=== PATIENT | female | born 1980 | race Two or more races ===

== ENCOUNTER 2018-03-17 07:59 | Inpatient (IN) | payer SELFPAY ==
[2018-03-17] VITALS (9 sets, daily range): BP systolic 122–160; BP diastolic 60–79
[~2018-03-17] VITALS: Ht 160 cm; Wt 104.3 kg
[~2018-03-17 07:59] MED LIST: ATOR20TA PO; GEMF600T PO; INSU100I17 SQ; INSU100I18 SQ; Oxycodone Hcl/Acetaminophen PO
[2018-03-17] MEDS ORDERED: MORPHINE SULFATE 10 MG/ML VIAL. IV ONE ×2 (08:15→09:15)
[2018-03-17] MEDS ORDERED: IV NORMAL SALINE 1000ML BAG 1,000 ML IV ONE ×2 (08:15→11:45)
[2018-03-17] MEDS ORDERED: ONDANSETRON PF 4 MG/2 ML VIAL. IV ONE (08:15)
--- NOTE | 2018-03-17 08:22 | PHYS DOC ---
Past Medical History Past Medical History: Diabetes-Type II Past Surgical History: Cholecystectomy Alcohol Use: None Drug Use: None Adult General Chief Complaint Chief Complaint: ABDOMINAL PAIN HPI HPI Patient is a 38 year old female with history of diabetes type 2, cholecystectomy, who presents today with a constant sharp 10 out of 10 bilateral upper abdominal pain with nausea and vomiting since yesterday. Patient states this pain feels similar to the last time she had pancreatitis. Patient denies any alcohol abuse. Denies any hematemesis. Patient states she was seen at [facility] early this morning and was discharged with hydrocodone and cephalexin for UTI. PCP Dr. Del Toro at [facility]. Review of Systems Review of Systems Constitutional: Denies fever or chills [] Eyes: Denies change in visual acuity, redness, or eye pain [] HENT: Denies nasal congestion or sore throat [] Respiratory: Denies cough or shortness of breath [] Cardiovascular: No additional information not addressed in HPI [] GI: Reports bilateral upper abdominal pain with nausea and vomiting, denies bloody stools or diarrhea [] : Denies dysuria or hematuria [] Musculoskeletal: Denies back pain or joint pain [] Integument: Denies rash or skin lesions [] Neurologic: Denies headache, focal weakness or sensory changes [] All other systems were reviewed and found to be within normal limits, except as documented in this note. Current Medications Current Medications Current Medications Medications (Trade) Dose Ordered Sig/Hilario Start Time Stop Time Status Last Admin Dose Admin Info (CONTRAST GIVEN -- Rx MONITORING) 1 each PRN DAILY PRN 03/17/18 09:00 03/19/18 08:59 Insulin Human Regular 150 ml @ 0 mls/hr CONT PRN PRN 03/17/18 11:15 03/17/18 13:01 DC 03/17/18 15:23 5.7 MLS/HR Insulin Human Regular 150 unit/ Sodium Chloride 151.5 ml @ 0 mls/hr CONT PRN PRN 03/17/18 11:00 Cancel Iohexol (Omnipaque 300 Mg/ml) 75 ml 1X ONCE 03/17/18 09:00 03/17/18 09:01 DC 03/17/18 10:19 75 ML Morphine Sulfate (Morphine Sulfate) 5 mg 1X ONCE 03/17/18 09:15 03/17/18 09:16 DC 03/17/18 09:25 5 MG Ondansetron HCl (Zofran) 4 mg 1X ONCE 03/17/18 08:15 03/17/18 08:16 DC 03/17/18 08:40 4 MG Prochlorperazine Edisylate (Compazine) 10 mg 1X ONCE 03/17/18 09:15 03/17/18 09:16 DC 03/17/18 09:25 10 MG Sodium Chloride 1,000 ml @ 1,000 mls/hr Q1H 03/17/18 10:58 03/17/18 11:57 DC Allergies Allergies Allergies Coded Allergies Type Severity Reaction Last Updated Verified No Known Drug Allergies 01/20/14 No Physical Exam Physical Exam Constitutional: Well developed, well nourished, no acute distress, non-toxic appearance. [] HENT: Normocephalic, atraumatic, bilateral external ears normal, oropharynx moist, no oral exudates, nose normal. [] Eyes: PERRLA, EOMI, conjunctiva normal, no discharge. [] Neck: Normal range of motion, no tenderness, supple, no stridor. [] Cardiovascular:Heart rate regular rhythm, no murmur [] Lungs & Thorax: Bilateral breath sounds clear to auscultation [] Abdomen: Bowel sounds normal, soft, diffuse tenderness bilateral upper abdominal areas, pain is worse mid epigastric region, no right lower quadrant tenderness, no masses, no pulsatile masses. Patient is actively vomiting in the ED. Skin: Warm, dry, no erythema, no rash. [] Back: No tenderness, no CVA tenderness. [] Extremities: No tenderness, no cyanosis, no clubbing, ROM intact, no edema. [] Neurologic: Alert and oriented X 3, normal motor function, normal sensory function, no focal deficits noted. [] Psychologic: Affect normal, judgement normal, mood normal. [] Current Patient Data Vital Signs Vital Signs Date Time Temp Pulse Resp B/P (MAP) Pulse Ox O2 Delivery O2 Flow Rate FiO2 03/17/18 11:30 106 188/85 (119) 96 Room Air 03/17/18 09:25 20 03/17/18 08:00 97.4 97.4 Lab Values Laboratory Tests Test 03/17/18 08:00 03/17/18 08:19 10/30/18 09:30 Urine Collection Type Unknown Urine Color Yellow Urine Clarity Clear Urine pH 6.0 Urine Specific [place] 1.020 Urine Protein >=300 mg/dL (NEG-TRACE) Urine Glucose (UA) >=1000 mg/dL (NEG) Urine Ketones (Stick) 40 mg/dL (NEG) Urine Blood Trace (NEG) Urine Nitrite Negative (NEG) Urine Bilirubin Negative (NEG) Urine Urobilinogen Dipstick 1.0 mg/dL (0.2 mg/dL) Urine Leukocyte Esterase Negative (NEG) Urine RBC 3-5 /HPF (0-2) Urine WBC 5-10 /HPF (0-4) Urine Squamous Epithelial Cells Mod /LPF Urine Bacteria Moderate /HPF (0-FEW) Urine Mucus Slight /LPF Urine Yeast Present /HPF Urine Opiates Screen Pos (NEG) Urine Methadone Screen Neg (NEG) Urine Barbiturates Neg (NEG) Urine Phencyclidine Screen Neg (NEG) Urine Amphetamine/Methamphetamine Neg (NEG) Urine Benzodiazepines Screen Neg (NEG) Urine Cocaine Screen Neg (NEG) Urine Cannabinoids Screen Neg (NEG) Urine Ethyl Alcohol Neg (NEG) Ethyl Alcohol Level < 10 mg/dL (0-10) White Blood Count 6.8 x10^3/uL (4.0-11.0) Red Blood Count 4.18 x10^6/uL (3.50-5.40) Hemoglobin 12.3 g/dL (12.0-15.5) Hematocrit 35.3 % (36.0-47.0) L Mean Corpuscular Volume 85 fL (79-100) Mean Corpuscular Hemoglobin 29 pg (25-35) Mean Corpuscular Hemoglobin Concent 35 g/dL (31-37) Red Cell Distribution Width 13.5 % (11.5-14.5) Platelet Count 199 x10^3/uL (140-400) Segmented Neutrophils % 74 % (35-66) H Band Neutrophils % 3 % (0-9) Lymphocytes % 18 % (24-48) L Monocytes % 3 % (0-10) Eosinophils % 1 % (0-5) Myelocytes % 1 % (0-0) H Platelet Estimate Adequate (ADEQUATE) Large Platelets Few Sodium Level 134 mmol/L (136-145) L Potassium Level 3.5 mmol/L (3.5-5.1) Chloride Level 96 mmol/L (98-107) L Carbon Dioxide Level 18 mmol/L (21-32) L Anion Gap 20 (6-14) H Blood Urea Nitrogen 4 mg/dL (7-20) L Creatinine 0.5 mg/dL (0.6-1.0) L Estimated GFR (Cockcroft-Gault) 139.6 BUN/Creatinine Ratio 8 (6-20) Glucose Level 369 mg/dL (70-99) H Calcium Level 8.0 mg/dL (8.5-10.1) L Phosphorus Level 2.5 mg/dL (2.6-4.7) L Magnesium Level 1.8 mg/dL (1.8-2.4) Total Bilirubin 1.4 mg/dL (0.2-1.0) H Aspartate Amino Transferase (AST) 233 U/L (15-37) H Alanine Aminotransferase (ALT) 160 U/L (14-59) H Alkaline Phosphatase 81 U/L (46-116) Total Protein 7.2 g/dL (6.4-8.2) Albumin 2.8 g/dL (3.4-5.0) L Albumin/Globulin Ratio 0.6 (1.0-1.7) L Triglycerides Level 2254 mg/dL (0-150) H Cholesterol Level 325 mg/dL (0-200) H LDL Cholesterol, Calculated mg/dL (0-100) VLDL Cholesterol, Calculated 451 mg/dL (0-40) H Non-HDL Cholesterol Calculated mg/dL (0-129) HDL Cholesterol mg/dL (40-60) Cholesterol/HDL Ratio Lipase 92467 U/L (73-393) H Laboratory Tests 03/17/18 09:30 Laboratory Tests 03/17/18 09:30 EKG EKG [] Radiology/Procedures Radiology/Procedures []PROCEDURE: CT ABD PELV W/ IV CONTRST ONLY PQRS Compliance statement: One or more of the following individualized dose reduction techniques were utilized for this examination: 1. Automated exposure control. 2. Adjustment of the mA and/or kV according to patient size. 3. Use of iterative reconstruction technique. Indication:abd pain hx of pancreatitis TECHNIQUE: CT abdomen and pelvis with IV contrast with multiplanar reformats. COMPARISON: 01/25/2014 FINDINGS: Heart is normal in size. No pericardial or pleural effusion. Clear lung bases. Diffuse hepatic steatosis without focal hepatic lesion. Spleen is not enlarged and show no focal lesion. Status post cholecystectomy. Diffuse peripancreatic inflammatory changes. No pancreatic calcifications. No peripancreatic fluid collections. Adrenal glands show no focal mass. No nephrolithiasis or hydronephrosis. No suspicious renal lesion. No retroperitoneal or pelvic adenopathy. No free pelvic fluid or ascites. No bowel obstruction. Normal appendix. Anteverted uterus. Urinary bladder within normal limits. Reactive changes are seen in the second and third portion of duodenum. No suspicious bony lesion. IMPRESSION: 1. Findings of acute interstitial edematous pancreatitis. 2. Hepatic steatosis. Electronically signed by: Mic Bañuelos DO (03/17/2018 11:27 AM) [facility] DICTATED and SIGNED BY: MIC BAÑUELOS DO DATE: 03/17/18 112 Course & Med Decision Making Course & Med Decision Making Pertinent Labs and Imaging studies reviewed. (See chart for details) This is a 38-year-old female patient presenting to the ED today with bilateral upper abdominal pain with nausea and vomiting, patient has history of pancreatitis and believes she is having an attack. CBC with normal WBC, CMP with glucose of 369, anion gap of 20, lipase 21,126, IV fluids started as well as insulin drip. CT of the abdomen and pelvic was noted for edematous pancreatitis. 11:36 spoke with Carmen LERNER for GI who will f/u with patient. Dragon Disclaimer Dragon Disclaimer This electronic medical record was generated, in whole or in part, using a voice recognition dictation system. Departure Departure Impression: Primary Impression: Acute pancreatitis Additional Impression: DKA (diabetic ketoacidoses) Disposition: 09 ADMITTED INPATIENT Condition: STABLE Referrals: NO PCP (PCP) Problem Qualifiers Primary Impression: Acute pancreatitis Pancreatitis type: unspecified pancreatitis type Acute pancreatitis complication: unspecified Qualified Codes: K85.90 - Acute pancreatitis without necrosis or infection, unspecified Additional Impression: DKA (diabetic ketoacidoses) Diabetes mellitus type: type 2 Diabetes mellitus complication detail: without coma Qualified Codes: E11.10 - Type 2 diabetes mellitus with ketoacidosis without coma ROSANA BEDOLLA APRN Mar 17, 2018 08:22
[2018-03-17 08:49] LABS: BILIRUBIN,URINE NEGATIVE (NEG); CLARITY,URINE CLEAR; COLOR,URINE YELLOW; NITRITE,URINE NEGATIVE (NEG); PROTEIN,URINE >=300 mg/dL (NEG-TRACE)
[2018-03-17 08:59] LABS: BARBITURATES NEG (NEG); BENZODIAZEPINES NEG (NEG); CANNABINOIDS NEG (NEG); COCAINE NEG (NEG); METHADONE NEG (NEG); OPIATES POS (NEG); PHENCYCLIDINE NEG (NEG)
[2018-03-17] MEDS ORDERED: CONTRAST GIVEN. MC PRN (09:00)
[2018-03-17] MEDS ORDERED: IOHEXOL 300 MG/ML 100ML VIAL. IV ONE (09:00)
[2018-03-17 09:01] LABS: AMPHETAMINE/METHAMPHETAMINE NEG (NEG)
[2018-03-17] MEDS ORDERED: PROCHLORPERAZINE 10 MG/2 ML VIAL. IV ONE (09:15)
[2018-03-17 09:16] LABS: BACTERIA,URINE MODERATE /HPF (0-FEW)
[2018-03-17 09:17] LABS: SQUAMOUS EPITHELIAL CELL,UR MOD /LPF; YEAST,URINE PRESENT /HPF
[2018-03-17 10:06] LABS: CREATININE 0.5 mg/dL (0.6-1.0); GFR 139.6; POTASSIUM 3.5 mmol/L (3.5-5.1)
[2018-03-17 10:13] LABS: ALBUMIN 2.8 g/dL (3.4-5.0); ALBUMIN/GLOBULIN RATIO 0.6 (1.0-1.7); TOTAL BILIRUBIN 1.4 mg/dL (0.2-1.0)
[2018-03-17 10:18] LABS: TOTAL PROTEIN 7.2 g/dL (6.4-8.2)
[2018-03-17 10:29] LABS: RED BLOOD COUNT 4.18 x10^6/uL (3.50-5.40); WHITE BLOOD COUNT 6.8 x10^3/uL (4.0-11.0)
[2018-03-17 10:30] LABS: HEMATOCRIT 35.3 % (36.0-47.0); HEMOGLOBIN 12.3 g/dL (12.0-15.5); MEAN CORPUSCULAR VOLUME 85 fL (79-100)
[2018-03-17 10:31] LABS: MEAN CORPUSCULAR HEMOGLOBIN 29 pg (25-35); MEAN CORPUSCULAR HGB CONC 35 g/dL (31-37); PLATELET COUNT 199 x10^3/uL (140-400); RED CELL DISTRIBUTION WIDTH 13.5 % (11.5-14.5)
[2018-03-17] MEDS ORDERED: IV NORMAL SALINE 1000ML BAG 1,000 ML IV SCH (10:58)
[2018-03-17] MEDS ORDERED: INSULIN REGULAR VIAL 150 UNIT in 0.9 % SODIUM CHLORIDE 150ML 150 ML IV PRN (11:00)
[2018-03-17 11:21] LABS: MAGNESIUM 1.8 mg/dL (1.8-2.4); PHOSPHORUS 2.5 mg/dL (2.6-4.7)
--- NOTE | 2018-03-17 11:30 | RAD ---
PQRS Compliance statement: One or more of the following individualized dose reduction techniques were utilized for this examination: 1. Automated exposure control. 2. Adjustment of the mA and/or kV according to patient size. 3. Use of iterative reconstruction technique. Indication:abd pain hx of pancreatitis TECHNIQUE: CT abdomen and pelvis with IV contrast with multiplanar reformats. COMPARISON: 01/25/2014 FINDINGS: Heart is normal in size. No pericardial or pleural effusion. Clear lung bases. Diffuse hepatic steatosis without focal hepatic lesion. Spleen is not enlarged and show no focal lesion. Status post cholecystectomy. Diffuse peripancreatic inflammatory changes. No pancreatic calcifications. No peripancreatic fluid collections. Adrenal glands show no focal mass. No nephrolithiasis or hydronephrosis. No suspicious renal lesion. No retroperitoneal or pelvic adenopathy. No free pelvic fluid or ascites. No bowel obstruction. Normal appendix. Anteverted uterus. Urinary bladder within normal limits. Reactive changes are seen in the second and third portion of duodenum. No suspicious bony lesion. IMPRESSION: 1. Findings of acute interstitial edematous pancreatitis. 2. Hepatic steatosis. Electronically signed by: Mic Bañuelos DO (03/17/2018 11:27 AM) [facility]
[2018-03-17] MEDS ORDERED: ONDANSETRON PF 4 MG/2 ML VIAL. IV PRN (11:45)
[2018-03-17] MEDS: MORPHINE SULFATE 4 MG/ML VIAL. IV PRN ×5 (12:01→23:00)
[2018-03-17] MEDS: INSULIN,REGULAR 150 UNIT DRIP 150 ML IV PRN ×2 (13:01→15:23)
--- NOTE | 2018-03-17 13:26 | PDOC2 ---
GI CONSULT Reason For Consult: Pancreatitis HPI: HPI: 38 y/o female seen in ER. Onset of upper abdominal pain w/ radiation around and through to back yesterday, associated w/ n/v. Feels similar to past episodes of pancreatitis. Was seen @ [facility] ER this morning, had elevated lipase there w/ normal LFTs. Discharged to home w/ cephalexin for UTI along w/ hydrocodone and ondansetron. Seems like a GI cocktail was also attempted - she says this made pain worse but morphine helped. After she left, the pain got worse so she came to [facility]. Here, lipase 21,126, bili 1.4, AST 233, ALT 160, Alk Phos 81. Glucose 369, CO2 18. UA w/ ketones (40). Third or fourth episode of pancreatitis - the last episode was about 5 years ago and required 9 day hospitalization First episode ?associated w/ gallstones and had cholecystectomy, but also has h/o hypertriglyceridemia. Stopped Tricor while , then resumed ~3 months ago. Had labs through [facility] and was told she needed a different medication but she never followed-up. Denies reflux/heartburn, dysphagia, hematemesis, constipation, hematochezia, melena, or weight loss. Not unusual for her to have diarrhea - maybe increased yesterday (estimates 7-8 episode of soft brown stool). No previous EGD or colonoscopy. H/o IDDM - says glucose usually in 180s at home. Takes Advil weekly for OMER. PMH: PMH: IDDM, hypertriglyceridemia, headaches, hepatic steatosis, pancreatitis, C- section, tubal ligation, cholecystectomy FH: Family History: No pertinent hx (denies GI cancer of h/o pancreatitis) Social History: Smoke: No ALCOHOL: none Drugs: None ROS: GEN: Denies fevers, chills, sweats HEENT: Denies blurred vision, sore throat CV: Denies chest pain RESP: Denies shortness of air, cough GI: Per HPI : Denies hematuria, dysuria ENDO: Denies weight changes NEURO: Denies confusion, dizziness MSK: Denies weakness, joint pain/swelling SKIN: Denies jaundice, pruritus Vitals: Vitals: Vital Signs Date Time Temp Pulse Resp B/P (MAP) Pulse Ox O2 Delivery O2 Flow Rate FiO2 03/17/18 12:30 110 165/77 (106) 96 Room Air 03/17/18 12:01 18 03/17/18 08:00 97.4 97.4 Labs: Labs: Laboratory Tests Test 03/17/18 08:00 03/17/18 08:19 03/17/18 09:30 03/17/18 12:49 Urine Collection Type Unknown Urine Color Yellow Urine Clarity Clear Urine pH 6.0 Urine Specific [place] 1.020 Urine Protein >=300 mg/dL (NEG-TRACE) Urine Glucose (UA) >=1000 mg/dL (NEG) Urine Ketones (Stick) 40 mg/dL (NEG) Urine Blood Trace (NEG) Urine Nitrite Negative (NEG) Urine Bilirubin Negative (NEG) Urine Urobilinogen Dipstick 1.0 mg/dL (0.2 mg/dL) Urine Leukocyte Esterase Negative (NEG) Urine RBC 3-5 /HPF (0-2) Urine WBC 5-10 /HPF (0-4) Urine Squamous Epithelial Cells Mod /LPF Urine Bacteria Moderate /HPF (0-FEW) Urine Mucus Slight /LPF Urine Yeast Present /HPF Urine Opiates Screen Pos (NEG) Urine Methadone Screen Neg (NEG) Urine Barbiturates Neg (NEG) Urine Phencyclidine Screen Neg (NEG) Urine Amphetamine/Methamphetamine Neg (NEG) Urine Benzodiazepines Screen Neg (NEG) Urine Cocaine Screen Neg (NEG) Urine Cannabinoids Screen Neg (NEG) Urine Ethyl Alcohol Neg (NEG) Ethyl Alcohol Level < 10 mg/dL (0-10) White Blood Count 6.8 x10^3/uL (4.0-11.0) Red Blood Count 4.18 x10^6/uL (3.50-5.40) Hemoglobin 12.3 g/dL (12.0-15.5) Hematocrit 35.3 % (36.0-47.0) Mean Corpuscular Volume 85 fL (79-100) Mean Corpuscular Hemoglobin 29 pg (25-35) Mean Corpuscular Hemoglobin Concent 35 g/dL (31-37) Red Cell Distribution Width 13.5 % (11.5-14.5) Platelet Count 199 x10^3/uL (140-400) Sodium Level 134 mmol/L (136-145) Potassium Level 3.5 mmol/L (3.5-5.1) Chloride Level 96 mmol/L (98-107) Carbon Dioxide Level 18 mmol/L (21-32) Anion Gap 20 (6-14) Blood Urea Nitrogen 4 mg/dL (7-20) Creatinine 0.5 mg/dL (0.6-1.0) Estimated GFR (Cockcroft-Gault) 139.6 BUN/Creatinine Ratio 8 (6-20) Glucose Level 369 mg/dL (70-99) Calcium Level 8.0 mg/dL (8.5-10.1) Phosphorus Level 2.5 mg/dL (2.6-4.7) Magnesium Level 1.8 mg/dL (1.8-2.4) Total Bilirubin 1.4 mg/dL (0.2-1.0) Aspartate Amino Transf (AST/SGOT) 233 U/L (15-37) Alanine Aminotransferase (ALT/SGPT) 160 U/L (14-59) Alkaline Phosphatase 81 U/L (46-116) Total Protein 7.2 g/dL (6.4-8.2) Albumin 2.8 g/dL (3.4-5.0) Albumin/Globulin Ratio 0.6 (1.0-1.7) Lipase 02996 U/L (73-393) Glucose (Fingerstick) 346 mg/dL (70-99) Allergies: Coded Allergies: No Known Drug Allergies (Unverified , 01/20/14) Medications: Current Medications Medications (Trade) Dose Ordered Sig/Hilario Route PRN Reason Start Time Stop Time Status Last Admin Dose Admin Sodium Chloride 1,000 ml @ 1,000 mls/hr 1X ONCE IV 03/17/18 08:15 03/17/18 09:14 DC 03/17/18 08:41 Ondansetron HCl (Zofran) 4 mg 1X ONCE IV 03/17/18 08:15 03/17/18 08:16 DC 03/17/18 08:40 Morphine Sulfate (Morphine Sulfate) 5 mg 1X ONCE IV 03/17/18 08:15 03/17/18 08:16 DC 03/17/18 08:40 Iohexol (Omnipaque 300 Mg/ml) 75 ml 1X ONCE IV 03/17/18 09:00 03/17/18 09:01 DC 03/17/18 10:19 Morphine Sulfate (Morphine Sulfate) 5 mg 1X ONCE IV 03/17/18 09:15 03/17/18 09:16 DC 03/17/18 09:25 Prochlorperazine Edisylate (Compazine) 10 mg 1X ONCE IV 03/17/18 09:15 03/17/18 09:16 DC 03/17/18 09:25 Insulin Human Regular 150 ml @ 0 mls/hr CONT PRN PRN IV PER PROTOCOL 03/17/18 11:15 03/17/18 13:01 DC 03/17/18 13:01 Morphine Sulfate (Morphine Sulfate) 4 mg PRN Q2HR PRN IV PAIN 03/17/18 11:45 03/18/18 11:44 03/17/18 12:01 Imaging: Imaging: CT A/P IMPRESSION: 1. Findings of acute interstitial edematous pancreatitis. 2. Hepatic steatosis. PE: GEN: NAD HEENT: Atraumatic, PERRL LUNGS: CTAB anteriorly HEART: tachycardic ABD: obese, quiet, soft, epigastric/BUQ tenderness EXTREMITY: No edema SKIN: No rashes, no jaundice NEURO/PSYCH: A & O 3 A/P: A/P: Recurrent pancreatitis -onset of upper abd pain w/ radiation to back and n/v yesterday -s/p cholecystectomy -h/o hypertriglyceridemia - on and off meds -denies alcohol use Elevated LFTs, hepatic steatosis IDDM, ?UTI, HTN - defer to primary CRC screen - average risk -- NPO, supportive care for pancreatitis. Check lipid panel - trigs >3000 here in 2013, defer treatment to primary. Elevated LFTs possibly related to hepatic steatosis, check MRCP for completeness. MONICA HECK Mar 17, 2018 13:26
[2018-03-17 13:53] LABS: CHOLESTEROL 325 mg/dL (0-200)
[2018-03-17 14:30] LABS: TRIGLYCERIDES 2254 mg/dL (0-150); VLDLC 451 mg/dL (0-40)
[2018-03-17] MEDS ORDERED: LABETALOL 20 MG/4 ML DISP.SYRIN. IVP PRN (14:30)
[2018-03-17] MEDS ORDERED: ACETAMINOPHEN 325 MG TABLET. PO PRN (14:30)
[2018-03-17] MEDS ORDERED: DOCUSATE SODIUM 100 MG CAPSULE. PO PRN (14:30)
--- NOTE | 2018-03-17 14:39 | PDOC1 ---
History and Physical Date of Admission Date of Admission 03/17/18 Identification/Chief Complaint Chief Complaint abd pain, N/V Source Source: Chart review, Patient History of Present Illness History of Present Illness Patient is a 38 year old female with history of diabetes type 2, cholecystectomy, pancreatitis, comes to ER for n/v abd pain from yesterday. Pt is taking NPH 35u bid , aspart 35u tid at home. She said last pancreatitis was 5ys ago and said was told 2/2 HLD. pt started to have upper abd pain yesterday, around the abd, radiating to back, then has multiple times of N/V, non bloody or bilious. The abd pain was severe, dull, 8/10, constant. denies ETOH. has loose BM at home yellow. Patient states she was seen at [facility] early this morning and was discharged with hydrocodone and cephalexin for UTI. pt feels frequency , dysuria in ER, not home. PCP Dr. Del Toro at [facility]. LIpase in ER >20k. CT showed acute pancreatitis. denies HTN, bp >200 in ER. GAP 20. glucose >300. high LFT. Past Medical History Cardiovascular: Hyperlipidemia Endocrine: Diabetes Past Surgical History Past Surgical History: Cholecystectomy, Tubal Ligation Family History Family History: Hypertension Social History Smoke: No ALCOHOL: none Drugs: None Current Problem List Problem List Problems Medical Problems: (1) Acute pancreatitis Status: Acute (2) DKA (diabetic ketoacidoses) Status: Acute Current Medications Current Medications Current Medications Medications (Trade) Dose Ordered Sig/Hilario Start Time Stop Time Status Last Admin Dose Admin Famotidine (Pepcid Vial) 20 mg QHS 03/17/18 21:00 Info (CONTRAST GIVEN -- Rx MONITORING) 1 each PRN DAILY PRN 03/17/18 09:00 03/19/18 08:59 Insulin Human Regular 150 ml @ 0 mls/hr CONT PRN PRN 03/17/18 11:15 03/17/18 13:01 DC 03/17/18 13:01 5.7 MLS/HR Insulin Human Regular 150 unit/ Sodium Chloride 151.5 ml @ 0 mls/hr CONT PRN PRN 03/17/18 18:00 Iohexol (Omnipaque 300 Mg/ml) 75 ml 1X ONCE 03/17/18 09:00 03/17/18 09:01 DC 03/17/18 10:19 75 ML Morphine Sulfate (Morphine Sulfate) 4 mg PRN Q2HR PRN 03/17/18 11:45 03/18/18 11:44 03/17/18 12:01 4 MG Ondansetron HCl (Zofran) 4 mg PRN Q8HRS PRN 03/17/18 11:45 03/18/18 11:44 Prochlorperazine Edisylate (Compazine) 10 mg 1X ONCE 03/17/18 09:15 03/17/18 09:16 DC 03/17/18 09:25 10 MG Sodium Chloride 1,000 ml @ 125 mls/hr 1X ONCE 03/17/18 11:45 03/17/18 19:44 Allergies Allergies Allergies Coded Allergies Type Severity Reaction Last Updated Verified No Known Drug Allergies 01/20/14 No ROS Review of System CONSTITUTIONAL: No fever or chills EYES: No recent changes SKIN: No rash or itching CARDIOVASCULAR: No chest pain, syncope, palpitations, or edema RESPIRATORY: No SOB or cough GASTROINTESTINAL: No nausea, vomiting or abdominal pain NEUROLOGICAL: No headaches or weakness ENDOCRINE: No cold or heat intolerance GENITOURINARY: No urgency or frequency of urination MUSCULOSKELETAL: No back pain or joint pain LYMPHATICS: No enlarged lymph nodes PSYCHIATRIC: No anxiety or depression Physical Exam Physical Exam GEN.: No apparent distress. Alert and oriented. HEENT: Head is normocephalic, atraumatic NECK: Supple. LUNGS: Clear to auscultation. HEART: RRR, S1, S2 present. Peripheral pulses intact ABDOMEN: Soft, Positive bowel sounds. upper abd moderate tenderness, no guarding or rebound. EXTREMITIES: Without any cyanosis. NEUROLOGIC: Normal speech, normal tone PSYCHIATRIC: Normal affect, normal mood. SKIN: No ulcerations Vitals Vitals Vital Signs Date Time Temp Pulse Resp B/P (MAP) Pulse Ox O2 Delivery O2 Flow Rate FiO2 03/17/18 12:30 110 165/77 (106) 96 Room Air 03/17/18 12:01 18 03/17/18 08:00 97.4 97.4 Labs Labs Laboratory Tests Test 03/17/18 08:00 03/17/18 08:19 03/17/18 09:30 03/17/18 12:49 Urine Collection Type Unknown Urine Color Yellow Urine Clarity Clear Urine pH 6.0 Urine Specific [place] 1.020 Urine Protein >=300 mg/dL (NEG-TRACE) Urine Glucose (UA) >=1000 mg/dL (NEG) Urine Ketones (Stick) 40 mg/dL (NEG) Urine Blood Trace (NEG) Urine Nitrite Negative (NEG) Urine Bilirubin Negative (NEG) Urine Urobilinogen Dipstick 1.0 mg/dL (0.2 mg/dL) Urine Leukocyte Esterase Negative (NEG) Urine RBC 3-5 /HPF (0-2) Urine WBC 5-10 /HPF (0-4) Urine Squamous Epithelial Cells Mod /LPF Urine Bacteria Moderate /HPF (0-FEW) Urine Mucus Slight /LPF Urine Yeast Present /HPF Urine Opiates Screen Pos (NEG) Urine Methadone Screen Neg (NEG) Urine Barbiturates Neg (NEG) Urine Phencyclidine Screen Neg (NEG) Urine Amphetamine/Methamphetamine Neg (NEG) Urine Benzodiazepines Screen Neg (NEG) Urine Cocaine Screen Neg (NEG) Urine Cannabinoids Screen Neg (NEG) Urine Ethyl Alcohol Neg (NEG) Ethyl Alcohol Level < 10 mg/dL (0-10) White Blood Count 6.8 x10^3/uL (4.0-11.0) Red Blood Count 4.18 x10^6/uL (3.50-5.40) Hemoglobin 12.3 g/dL (12.0-15.5) Hematocrit 35.3 % (36.0-47.0) Mean Corpuscular Volume 85 fL (79-100) Mean Corpuscular Hemoglobin 29 pg (25-35) Mean Corpuscular Hemoglobin Concent 35 g/dL (31-37) Red Cell Distribution Width 13.5 % (11.5-14.5) Platelet Count 199 x10^3/uL (140-400) Sodium Level 134 mmol/L (136-145) Potassium Level 3.5 mmol/L (3.5-5.1) Chloride Level 96 mmol/L (98-107) Carbon Dioxide Level 18 mmol/L (21-32) Anion Gap 20 (6-14) Blood Urea Nitrogen 4 mg/dL (7-20) Creatinine 0.5 mg/dL (0.6-1.0) Estimated GFR (Cockcroft-Gault) 139.6 BUN/Creatinine Ratio 8 (6-20) Glucose Level 369 mg/dL (70-99) Calcium Level 8.0 mg/dL (8.5-10.1) Phosphorus Level 2.5 mg/dL (2.6-4.7) Magnesium Level 1.8 mg/dL (1.8-2.4) Total Bilirubin 1.4 mg/dL (0.2-1.0) Aspartate Amino Transf (AST/SGOT) 233 U/L (15-37) Alanine Aminotransferase (ALT/SGPT) 160 U/L (14-59) Alkaline Phosphatase 81 U/L (46-116) Total Protein 7.2 g/dL (6.4-8.2) Albumin 2.8 g/dL (3.4-5.0) Albumin/Globulin Ratio 0.6 (1.0-1.7) Lipase 24041 U/L (73-393) Glucose (Fingerstick) 346 mg/dL (70-99) Laboratory Tests Test 03/17/18 08:00 03/17/18 08:19 03/17/18 09:30 03/17/18 12:49 Urine Collection Type Unknown Urine Color Yellow Urine Clarity Clear Urine pH 6.0 Urine Specific [place] 1.020 Urine Protein >=300 mg/dL (NEG-TRACE) Urine Glucose (UA) >=1000 mg/dL (NEG) Urine Ketones (Stick) 40 mg/dL (NEG) Urine Blood Trace (NEG) Urine Nitrite Negative (NEG) Urine Bilirubin Negative (NEG) Urine Urobilinogen Dipstick 1.0 mg/dL (0.2 mg/dL) Urine Leukocyte Esterase Negative (NEG) Urine RBC 3-5 /HPF (0-2) Urine WBC 5-10 /HPF (0-4) Urine Squamous Epithelial Cells Mod /LPF Urine Bacteria Moderate /HPF (0-FEW) Urine Mucus Slight /LPF Urine Yeast Present /HPF Urine Opiates Screen Pos (NEG) Urine Methadone Screen Neg (NEG) Urine Barbiturates Neg (NEG) Urine Phencyclidine Screen Neg (NEG) Urine Amphetamine/Methamphetamine Neg (NEG) Urine Benzodiazepines Screen Neg (NEG) Urine Cocaine Screen Neg (NEG) Urine Cannabinoids Screen Neg (NEG) Urine Ethyl Alcohol Neg (NEG) Ethyl Alcohol Level < 10 mg/dL (0-10) White Blood Count 6.8 x10^3/uL (4.0-11.0) Red Blood Count 4.18 x10^6/uL (3.50-5.40) Hemoglobin 12.3 g/dL (12.0-15.5) Hematocrit 35.3 % (36.0-47.0) Mean Corpuscular Volume 85 fL (79-100) Mean Corpuscular Hemoglobin 29 pg (25-35) Mean Corpuscular Hemoglobin Concent 35 g/dL (31-37) Red Cell Distribution Width 13.5 % (11.5-14.5) Platelet Count 199 x10^3/uL (140-400) Sodium Level 134 mmol/L (136-145) Potassium Level 3.5 mmol/L (3.5-5.1) Chloride Level 96 mmol/L (98-107) Carbon Dioxide Level 18 mmol/L (21-32) Anion Gap 20 (6-14) Blood Urea Nitrogen 4 mg/dL (7-20) Creatinine 0.5 mg/dL (0.6-1.0) Estimated GFR (Cockcroft-Gault) 139.6 BUN/Creatinine Ratio 8 (6-20) Glucose Level 369 mg/dL (70-99) Calcium Level 8.0 mg/dL (8.5-10.1) Phosphorus Level 2.5 mg/dL (2.6-4.7) Magnesium Level 1.8 mg/dL (1.8-2.4) Total Bilirubin 1.4 mg/dL (0.2-1.0) Aspartate Amino Transf (AST/SGOT) 233 U/L (15-37) Alanine Aminotransferase (ALT/SGPT) 160 U/L (14-59) Alkaline Phosphatase 81 U/L (46-116) Total Protein 7.2 g/dL (6.4-8.2) Albumin 2.8 g/dL (3.4-5.0) Albumin/Globulin Ratio 0.6 (1.0-1.7) Lipase 01289 U/L (73-393) Glucose (Fingerstick) 346 mg/dL (70-99) VTE Prophylaxis Ordered VTE Prophylaxis Devices: Yes VTE Pharmacological Prophylaxi: Yes Assessment/Plan Assessment/Plan abd pain with acute recurrent pancreatitis, need to rule out cholelithiasis h/o pancreatitis with HLD DKA dm2 on insulin htn urgency elevated transaminitis h/o cholecystectomy HLD hypophosphatemia possible UTI plan: ICU care with insulin drip, labs q4h and replete electrolytes as per protocol gi consulted, MRCP pending npo for now repeat lipase, lft mr ceftriaxone for now IVF with insulin drip check hba1c, lipid panel dvt , gi ppx cc time 35min. TANIKA CHOI MD Mar 17, 2018 14:39
[2018-03-17] MEDS: INSULIN REGULAR VIAL 150 UNIT in 0.9 % SODIUM CHLORIDE 150ML 150 ML IV PRN ×2 (15:25→18:34)
[2018-03-17] MEDS: POTASSIUM PHOSPHATE DIBASIC IV SCH ×2 (15:27→17:30)
[2018-03-17] MEDS: DEXTROSE 5% IV SCH ×2 (15:27→17:30)
[2018-03-17] MEDS: cefTRIAXone IV Push 1 GM VIAL. IVP SCH (15:53)
[2018-03-17] MEDS: ENOXAPARIN 40 MG/0.4 ML SYRINGE. SQ SCH (15:54)
[2018-03-17 16:13] LABS: CALCIUM 8.5 mg/dL (8.5-10.1); CREATININE 0.7 mg/dL (0.6-1.0); GFR 94.7; PHOSPHORUS 3.3 mg/dL (2.6-4.7)
[2018-03-17 16:25] LABS: % BANDS 3 % (0-9); % EOS 1 % (0-5); % LYMPHS 18 % (24-48); % MONOS 3 % (0-10); % MYELOS 1 % (0-0); % SEGS 74 % (35-66); PLT ESTIMATE ADEQUATE (ADEQUATE)
--- NOTE | 2018-03-17 16:27 | RAD ---
MRI Of The Abdomen Without Intravenous Contrast: History: Pancreatitis. Status post cholecystectomy. Comparison: CT abdomen pelvis March 17, 2018. Technique: MRI of the abdomen was performed without intravenous contrast using multiple sequences and planes including 3-D respiratory triggered coronal MRCP sequence. Rotating 3-D MIPS were created from the source MRCP data. Findings: Severe fatty liver disease is seen. No focal hepatic mass is identified. Slight amount of perihepatic fluid is seen adjacent to the inferior aspect of the liver, presumably secondary to pancreatitis. Spleen and bilateral adrenal glands are unremarkable. Bilateral kidneys are unremarkable. A large amount of retroperitoneal fluid is seen adjacent to the pancreas, compatible with provided history of pancreatitis. Common bile duct has normal caliber at 4 mm. No filling defect to suggest choledocholithiasis is identified. Gallbladder is absent. There is no evidence of pancreas divisum. Pancreatic duct is 2 mm, within normal limits. Impression: 1. Acute pancreatitis. No evidence of pancreas divisum. 2. No evidence of choledocholithiasis or biliary obstruction. 3. Severe fatty liver disease. Electronically signed by: Ramsey Rivas MD (03/17/2018 4:23 PM) [place] [id number]
[2018-03-17] MEDS ORDERED: INSU100I17 SQ (17:40)
[2018-03-17] MEDS ORDERED: NPH,100I3 SQ (17:40)
[2018-03-17] MEDS ORDERED: FENO145T PO ×2 (17:40→17:51)
[2018-03-17] MEDS ORDERED: IV 1/2 NORMAL SALINE 1,000 ML IV SCH ×2 (19:10→19:18)
[2018-03-17] MEDS ORDERED: SODIUM PHOSPHATE 40 MMOL in IV NORMAL SALINE 500ML BAG 500 ML IV PRN (19:15)
[2018-03-17] MEDS ORDERED: SODIUM PHOSPHATE 20 MMOL in IV DEXTROSE 5% 250 ML IV PRN (19:15)
[2018-03-17] MEDS ORDERED: SODIUM PHOSPHATE 10 MMOL in IV DEXTROSE 5% 250 ML IV PRN (19:15)
[2018-03-17] MEDS: FAMOTIDINE 20 MG/2 ML VIAL IVP SCH (20:37)
[2018-03-17 21:14] LABS: CALCIUM 8.1 mg/dL (8.5-10.1); CREATININE 0.8 mg/dL (0.6-1.0); GFR 81.2; PHOSPHORUS 1.5 mg/dL (2.6-4.7); POTASSIUM 3.3 mmol/L (3.5-5.1)
[2018-03-17] MEDS ORDERED: POTASSIUM CL 40MEQ D5-0.45NACL 1,000 ML IV SCH (22:00)
[2018-03-18] VITALS (15 sets, daily range): BP systolic 130–167; BP diastolic 60–77
[2018-03-18] MEDS ORDERED: IV 1/2 NORMAL SALINE 1,000 ML IV SCH (01:40)
[2018-03-18] MEDS: MORPHINE SULFATE 4 MG/ML VIAL. IV PRN ×3 (01:45→06:24)
[2018-03-18 02:56] LABS: ALBUMIN 2.3 g/dL (3.4-5.0); ALBUMIN/GLOBULIN RATIO 0.5 (1.0-1.7); CALCIUM 7.3 mg/dL (8.5-10.1); CREATININE 0.7 mg/dL (0.6-1.0); GFR 94.7; MAGNESIUM 1.9 mg/dL (1.8-2.4); PHOSPHORUS 1.4 mg/dL (2.6-4.7); POTASSIUM 3.4 mmol/L (3.5-5.1); TOTAL BILIRUBIN 0.6 mg/dL (0.2-1.0); TOTAL PROTEIN 6.6 g/dL (6.4-8.2)
[2018-03-18 03:18] LABS: HEMATOCRIT 35.4 % (36.0-47.0); HEMOGLOBIN 11.8 g/dL (12.0-15.5); MEAN CORPUSCULAR HEMOGLOBIN 28 pg (25-35); MEAN CORPUSCULAR HGB CONC 33 g/dL (31-37); MEAN CORPUSCULAR VOLUME 85 fL (79-100); PLATELET COUNT 196 x10^3/uL (140-400); RED BLOOD COUNT 4.19 x10^6/uL (3.50-5.40); RED CELL DISTRIBUTION WIDTH 13.7 % (11.5-14.5); WHITE BLOOD COUNT 5.5 x10^3/uL (4.0-11.0)
[2018-03-18] MEDS ORDERED: DEXTROSE 50% 25 GM / 50ML DISP.SYRIN. IV PRN (03:45)
[2018-03-18 03:50] LABS: % BANDS 8 % (0-9); % LYMPHS 17 % (24-48); % MONOS 3 % (0-10); % SEGS 72 % (35-66); PLT ESTIMATE ADEQUATE (ADEQUATE)
[2018-03-18] MEDS ORDERED: POTASSIUM CHLORIDE 40 MEQ in IV 1/2 NORMAL SALINE 1,000 ML IV SCH (04:00)
[2018-03-18] MEDS ORDERED: INSULIN LISPRO 300 UNITS/3 ML INSULN.PEN. SQ SCH (07:30)
[2018-03-18] MEDS: INSULIN LISPRO 300 UNITS/3 ML INSULN.PEN. SQ SCH ×4 (08:06→22:02)
[2018-03-18] MEDS: traMADol 50 MG TABLET PO PRN ×3 (08:32→21:33)
[2018-03-18] MEDS ORDERED: MAGNESIUM SULFATE 4GM 100 ML IV PRN (09:00)
[2018-03-18 09:53] LABS: CALCIUM 6.9 mg/dL (8.5-10.1); CREATININE 0.5 mg/dL (0.6-1.0); GFR 139.6; POTASSIUM 3.9 mmol/L (3.5-5.1)
[2018-03-18] MEDS: IV 1/2 NORMAL SALINE 1,000 ML IV SCH ×2 (11:45→18:03)
--- NOTE | 2018-03-18 11:55 | PDOC ---
PROGRESS NOTES Chief Complaint Chief Complaint Acute recurrent pancreatitis H/o pancreatitis with HLD DKA, anion gap closed, resolved T2DM on insulin Htn urgency Elevated transaminitis H/o cholecystectomy HLD Hypophosphatemia Hypokalemia Possible UTI History of Present Illness History of Present Illness Pt seen and examined in ICU Laying in bed, calm, cooperative Discussed with RN Vitals Vitals Vital Signs Date Time Temp Pulse Resp B/P (MAP) Pulse Ox O2 Delivery O2 Flow Rate FiO2 03/18/18 11:46 94 Room Air 03/18/18 11:00 106 26 156/71 (99) 03/18/18 08:00 98.1 98.1 Physical Exam General: Alert, Oriented X3, Cooperative Heart: Regular rate, Normal S1, Normal S2 Lungs: Clear Abdomen: Normal bowel sounds, Soft, Other (mild epigastric tenderness) Extremities: No clubbing, No cyanosis, No edema Skin: No rashes, No breakdown Labs LABS Laboratory Tests Test 03/17/18 12:49 03/17/18 14:54 03/17/18 15:00 03/17/18 16:13 Glucose (Fingerstick) 346 mg/dL (70-99) 345 mg/dL (70-99) 340 mg/dL (70-99) Sodium Level 141 mmol/L (136-145) Potassium Level 4.0 mmol/L (3.5-5.1) Chloride Level 100 mmol/L (98-107) Carbon Dioxide Level 18 mmol/L (21-32) Anion Gap 23 (6-14) Blood Urea Nitrogen 5 mg/dL (7-20) Creatinine 0.7 mg/dL (0.6-1.0) Estimated GFR (Cockcroft-Gault) 94.7 Glucose Level 384 mg/dL (70-99) Calcium Level 8.5 mg/dL (8.5-10.1) Phosphorus Level 3.3 mg/dL (2.6-4.7) Magnesium Level 2.0 mg/dL (1.8-2.4) Test 03/17/18 17:17 03/17/18 18:26 03/17/18 19:22 03/17/18 20:25 Glucose (Fingerstick) 309 mg/dL (70-99) 323 mg/dL (70-99) 260 mg/dL (70-99) Sodium Level 143 mmol/L (136-145) Potassium Level 3.3 mmol/L (3.5-5.1) Chloride Level 105 mmol/L (98-107) Carbon Dioxide Level 21 mmol/L (21-32) Anion Gap 17 (6-14) Blood Urea Nitrogen 4 mg/dL (7-20) Creatinine 0.8 mg/dL (0.6-1.0) Estimated GFR (Cockcroft-Gault) 81.2 Glucose Level 285 mg/dL (70-99) Calcium Level 8.1 mg/dL (8.5-10.1) Phosphorus Level 1.5 mg/dL (2.6-4.7) Magnesium Level 2.0 mg/dL (1.8-2.4) Test 03/17/18 20:26 03/17/18 21:38 03/17/18 22:29 03/17/18 23:36 Glucose (Fingerstick) 233 mg/dL (70-99) 195 mg/dL (70-99) 245 mg/dL (70-99) 263 mg/dL (70-99) Test 03/18/18 00:31 03/18/18 01:33 03/18/18 01:45 03/18/18 02:47 Glucose (Fingerstick) 295 mg/dL (70-99) 260 mg/dL (70-99) 212 mg/dL (70-99) White Blood Count 5.5 x10^3/uL (4.0-11.0) Red Blood Count 4.19 x10^6/uL (3.50-5.40) Hemoglobin 11.8 g/dL (12.0-15.5) Hematocrit 35.4 % (36.0-47.0) Mean Corpuscular Volume 85 fL (79-100) Mean Corpuscular Hemoglobin 28 pg (25-35) Mean Corpuscular Hemoglobin Concent 33 g/dL (31-37) Red Cell Distribution Width 13.7 % (11.5-14.5) Platelet Count 196 x10^3/uL (140-400) Segmented Neutrophils % 72 % (35-66) Band Neutrophils % 8 % (0-9) Lymphocytes % 17 % (24-48) Monocytes % 3 % (0-10) Platelet Estimate Adequate (ADEQUATE) Sodium Level 143 mmol/L (136-145) Potassium Level 3.4 mmol/L (3.5-5.1) Chloride Level 107 mmol/L (98-107) Carbon Dioxide Level 24 mmol/L (21-32) Anion Gap 12 (6-14) Blood Urea Nitrogen 4 mg/dL (7-20) Creatinine 0.7 mg/dL (0.6-1.0) Estimated GFR (Cockcroft-Gault) 94.7 BUN/Creatinine Ratio 6 (6-20) Glucose Level 293 mg/dL (70-99) Calcium Level 7.3 mg/dL (8.5-10.1) Phosphorus Level 1.4 mg/dL (2.6-4.7) Magnesium Level 1.9 mg/dL (1.8-2.4) Total Bilirubin 0.6 mg/dL (0.2-1.0) Aspartate Amino Transf (AST/SGOT) 149 U/L (15-37) Alanine Aminotransferase (ALT/SGPT) 181 U/L (14-59) Alkaline Phosphatase 80 U/L (46-116) Total Protein 6.6 g/dL (6.4-8.2) Albumin 2.3 g/dL (3.4-5.0) Albumin/Globulin Ratio 0.5 (1.0-1.7) Lipase 6848 U/L (73-393) Test 03/18/18 06:17 03/18/18 07:59 03/18/18 08:45 Glucose (Fingerstick) 247 mg/dL (70-99) 274 mg/dL (70-99) Sodium Level 138 mmol/L (136-145) Potassium Level 3.9 mmol/L (3.5-5.1) Chloride Level 102 mmol/L (98-107) Carbon Dioxide Level 20 mmol/L (21-32) Anion Gap 16 (6-14) Blood Urea Nitrogen 4 mg/dL (7-20) Creatinine 0.5 mg/dL (0.6-1.0) Estimated GFR (Cockcroft-Gault) 139.6 Glucose Level 318 mg/dL (70-99) Calcium Level 6.9 mg/dL (8.5-10.1) Phosphorus Level 2.2 mg/dL (2.6-4.7) Review of Systems Review of Systems Pt c/o abdominal pain that has improved since admission. She denies any fevers, chills, OMER, CP, SOA, or N/V. Assessment and Plan Assessmemt and Plan Problems Medical Problems: (1) Acute pancreatitis Status: Acute (2) DKA (diabetic ketoacidoses) Status: Acute Assessment: Acute recurrent pancreatitis H/o pancreatitis with HLD DKA, anion gap closed, resolved T2DM on insulin HTN urgency Elevated transaminitis H/o cholecystectomy HLD Hypophosphatemia Hypokalemia Possible UTI Plan: ICU monitoring Monitor labs and daily lipase Potassium replacement given Clear liquid diet per GI Pain meds prn PT/OT DVT ppx Possible downgrade to medical floor Comment Review of Relevant I have reviewed the following items destiny (where applicable) has been applied. Labs Laboratory Tests Test 03/17/18 08:00 03/17/18 08:19 03/17/18 09:30 03/17/18 12:49 Urine Collection Type Unknown Urine Color Yellow Urine Clarity Clear Urine pH 6.0 Urine Specific [place] 1.020 Urine Protein >=300 mg/dL (NEG-TRACE) Urine Glucose (UA) >=1000 mg/dL (NEG) Urine Ketones (Stick) 40 mg/dL (NEG) Urine Blood Trace (NEG) Urine Nitrite Negative (NEG) Urine Bilirubin Negative (NEG) Urine Urobilinogen Dipstick 1.0 mg/dL (0.2 mg/dL) Urine Leukocyte Esterase Negative (NEG) Urine RBC 3-5 /HPF (0-2) Urine WBC 5-10 /HPF (0-4) Urine Squamous Epithelial Cells Mod /LPF Urine Bacteria Moderate /HPF (0-FEW) Urine Mucus Slight /LPF Urine Yeast Present /HPF Urine Opiates Screen Pos (NEG) Urine Methadone Screen Neg (NEG) Urine Barbiturates Neg (NEG) Urine Phencyclidine Screen Neg (NEG) Urine Amphetamine/Methamphetamine Neg (NEG) Urine Benzodiazepines Screen Neg (NEG) Urine Cocaine Screen Neg (NEG) Urine Cannabinoids Screen Neg (NEG) Urine Ethyl Alcohol Neg (NEG) Ethyl Alcohol Level < 10 mg/dL (0-10) White Blood Count 6.8 x10^3/uL (4.0-11.0) Red Blood Count 4.18 x10^6/uL (3.50-5.40) Hemoglobin 12.3 g/dL (12.0-15.5) Hematocrit 35.3 % (36.0-47.0) Mean Corpuscular Volume 85 fL (79-100) Mean Corpuscular Hemoglobin 29 pg (25-35) Mean Corpuscular Hemoglobin Concent 35 g/dL (31-37) Red Cell Distribution Width 13.5 % (11.5-14.5) Platelet Count 199 x10^3/uL (140-400) Segmented Neutrophils % 74 % (35-66) Band Neutrophils % 3 % (0-9) Lymphocytes % 18 % (24-48) Monocytes % 3 % (0-10) Eosinophils % 1 % (0-5) Myelocytes % 1 % (0-0) Platelet Estimate Adequate (ADEQUATE) Large Platelets Few Sodium Level 134 mmol/L (136-145) Potassium Level 3.5 mmol/L (3.5-5.1) Chloride Level 96 mmol/L (98-107) Carbon Dioxide Level 18 mmol/L (21-32) Anion Gap 20 (6-14) Blood Urea Nitrogen 4 mg/dL (7-20) Creatinine 0.5 mg/dL (0.6-1.0) Estimated GFR (Cockcroft-Gault) 139.6 BUN/Creatinine Ratio 8 (6-20) Glucose Level 369 mg/dL (70-99) Calcium Level 8.0 mg/dL (8.5-10.1) Phosphorus Level 2.5 mg/dL (2.6-4.7) Magnesium Level 1.8 mg/dL (1.8-2.4) Total Bilirubin 1.4 mg/dL (0.2-1.0) Aspartate Amino Transf (AST/SGOT) 233 U/L (15-37) Alanine Aminotransferase (ALT/SGPT) 160 U/L (14-59) Alkaline Phosphatase 81 U/L (46-116) Total Protein 7.2 g/dL (6.4-8.2) Albumin 2.8 g/dL (3.4-5.0) Albumin/Globulin Ratio 0.6 (1.0-1.7) Triglycerides Level 2254 mg/dL (0-150) Cholesterol Level 325 mg/dL (0-200) LDL Cholesterol, Calculated mg/dL (0-100) VLDL Cholesterol, Calculated 451 mg/dL (0-40) Non-HDL Cholesterol Calculated mg/dL (0-129) HDL Cholesterol mg/dL (40-60) Cholesterol/HDL Ratio Lipase 70471 U/L (73-393) Glucose (Fingerstick) 346 mg/dL (70-99) Test 03/17/18 14:54 03/17/18 15:00 03/17/18 16:13 03/17/18 17:17 Glucose (Fingerstick) 345 mg/dL (70-99) 340 mg/dL (70-99) 309 mg/dL (70-99) Sodium Level 141 mmol/L (136-145) Potassium Level 4.0 mmol/L (3.5-5.1) Chloride Level 100 mmol/L (98-107) Carbon Dioxide Level 18 mmol/L (21-32) Anion Gap 23 (6-14) Blood Urea Nitrogen 5 mg/dL (7-20) Creatinine 0.7 mg/dL (0.6-1.0) Estimated GFR (Cockcroft-Gault) 94.7 Glucose Level 384 mg/dL (70-99) Calcium Level 8.5 mg/dL (8.5-10.1) Phosphorus Level 3.3 mg/dL (2.6-4.7) Magnesium Level 2.0 mg/dL (1.8-2.4) Test 03/17/18 18:26 03/17/18 19:22 03/17/18 20:25 03/17/18 20:26 Glucose (Fingerstick) 323 mg/dL (70-99) 260 mg/dL (70-99) 233 mg/dL (70-99) Sodium Level 143 mmol/L (136-145) Potassium Level 3.3 mmol/L (3.5-5.1) Chloride Level 105 mmol/L (98-107) Carbon Dioxide Level 21 mmol/L (21-32) Anion Gap 17 (6-14) Blood Urea Nitrogen 4 mg/dL (7-20) Creatinine 0.8 mg/dL (0.6-1.0) Estimated GFR (Cockcroft-Gault) 81.2 Glucose Level 285 mg/dL (70-99) Calcium Level 8.1 mg/dL (8.5-10.1) Phosphorus Level 1.5 mg/dL (2.6-4.7) Magnesium Level 2.0 mg/dL (1.8-2.4) Test 03/17/18 21:38 03/17/18 22:29 03/17/18 23:36 03/18/18 00:31 Glucose (Fingerstick) 195 mg/dL (70-99) 245 mg/dL (70-99) 263 mg/dL (70-99) 295 mg/dL (70-99) Test 03/18/18 01:33 03/18/18 01:45 03/18/18 02:47 03/18/18 06:17 Glucose (Fingerstick) 260 mg/dL (70-99) 212 mg/dL (70-99) 247 mg/dL (70-99) White Blood Count 5.5 x10^3/uL (4.0-11.0) Red Blood Count 4.19 x10^6/uL (3.50-5.40) Hemoglobin 11.8 g/dL (12.0-15.5) Hematocrit 35.4 % (36.0-47.0) Mean Corpuscular Volume 85 fL (79-100) Mean Corpuscular Hemoglobin 28 pg (25-35) Mean Corpuscular Hemoglobin Concent 33 g/dL (31-37) Red Cell Distribution Width 13.7 % (11.5-14.5) Platelet Count 196 x10^3/uL (140-400) Segmented Neutrophils % 72 % (35-66) Band Neutrophils % 8 % (0-9) Lymphocytes % 17 % (24-48) Monocytes % 3 % (0-10) Platelet Estimate Adequate (ADEQUATE) Sodium Level 143 mmol/L (136-145) Potassium Level 3.4 mmol/L (3.5-5.1) Chloride Level 107 mmol/L (98-107) Carbon Dioxide Level 24 mmol/L (21-32) Anion Gap 12 (6-14) Blood Urea Nitrogen 4 mg/dL (7-20) Creatinine 0.7 mg/dL (0.6-1.0) Estimated GFR (Cockcroft-Gault) 94.7 BUN/Creatinine Ratio 6 (6-20) Glucose Level 293 mg/dL (70-99) Calcium Level 7.3 mg/dL (8.5-10.1) Phosphorus Level 1.4 mg/dL (2.6-4.7) Magnesium Level 1.9 mg/dL (1.8-2.4) Total Bilirubin 0.6 mg/dL (0.2-1.0) Aspartate Amino Transf (AST/SGOT) 149 U/L (15-37) Alanine Aminotransferase (ALT/SGPT) 181 U/L (14-59) Alkaline Phosphatase 80 U/L (46-116) Total Protein 6.6 g/dL (6.4-8.2) Albumin 2.3 g/dL (3.4-5.0) Albumin/Globulin Ratio 0.5 (1.0-1.7) Lipase 6848 U/L (73-393) Test 03/18/18 07:59 03/18/18 08:45 Glucose (Fingerstick) 274 mg/dL (70-99) Sodium Level 138 mmol/L (136-145) Potassium Level 3.9 mmol/L (3.5-5.1) Chloride Level 102 mmol/L (98-107) Carbon Dioxide Level 20 mmol/L (21-32) Anion Gap 16 (6-14) Blood Urea Nitrogen 4 mg/dL (7-20) Creatinine 0.5 mg/dL (0.6-1.0) Estimated GFR (Cockcroft-Gault) 139.6 Glucose Level 318 mg/dL (70-99) Calcium Level 6.9 mg/dL (8.5-10.1) Phosphorus Level 2.2 mg/dL (2.6-4.7) Laboratory Tests Test 03/17/18 12:49 03/17/18 14:54 03/17/18 15:00 03/17/18 16:13 Glucose (Fingerstick) 346 mg/dL (70-99) 345 mg/dL (70-99) 340 mg/dL (70-99) Sodium Level 141 mmol/L (136-145) Potassium Level 4.0 mmol/L (3.5-5.1) Chloride Level 100 mmol/L (98-107) Carbon Dioxide Level 18 mmol/L (21-32) Anion Gap 23 (6-14) Blood Urea Nitrogen 5 mg/dL (7-20) Creatinine 0.7 mg/dL (0.6-1.0) Estimated GFR (Cockcroft-Gault) 94.7 Glucose Level 384 mg/dL (70-99) Calcium Level 8.5 mg/dL (8.5-10.1) Phosphorus Level 3.3 mg/dL (2.6-4.7) Magnesium Level 2.0 mg/dL (1.8-2.4) Test 03/17/18 17:17 03/17/18 18:26 03/17/18 19:22 03/17/18 20:25 Glucose (Fingerstick) 309 mg/dL (70-99) 323 mg/dL (70-99) 260 mg/dL (70-99) Sodium Level 143 mmol/L (136-145) Potassium Level 3.3 mmol/L (3.5-5.1) Chloride Level 105 mmol/L (98-107) Carbon Dioxide Level 21 mmol/L (21-32) Anion Gap 17 (6-14) Blood Urea Nitrogen 4 mg/dL (7-20) Creatinine 0.8 mg/dL (0.6-1.0) Estimated GFR (Cockcroft-Gault) 81.2 Glucose Level 285 mg/dL (70-99) Calcium Level 8.1 mg/dL (8.5-10.1) Phosphorus Level 1.5 mg/dL (2.6-4.7) Magnesium Level 2.0 mg/dL (1.8-2.4) Test 03/17/18 20:26 03/17/18 21:38 03/17/18 22:29 03/17/18 23:36 Glucose (Fingerstick) 233 mg/dL (70-99) 195 mg/dL (70-99) 245 mg/dL (70-99) 263 mg/dL (70-99) Test 03/18/18 00:31 03/18/18 01:33 03/18/18 01:45 03/18/18 02:47 Glucose (Fingerstick) 295 mg/dL (70-99) 260 mg/dL (70-99) 212 mg/dL (70-99) White Blood Count 5.5 x10^3/uL (4.0-11.0) Red Blood Count 4.19 x10^6/uL (3.50-5.40) Hemoglobin 11.8 g/dL (12.0-15.5) Hematocrit 35.4 % (36.0-47.0) Mean Corpuscular Volume 85 fL (79-100) Mean Corpuscular Hemoglobin 28 pg (25-35) Mean Corpuscular Hemoglobin Concent 33 g/dL (31-37) Red Cell Distribution Width 13.7 % (11.5-14.5) Platelet Count 196 x10^3/uL (140-400) Segmented Neutrophils % 72 % (35-66) Band Neutrophils % 8 % (0-9) Lymphocytes % 17 % (24-48) Monocytes % 3 % (0-10) Platelet Estimate Adequate (ADEQUATE) Sodium Level 143 mmol/L (136-145) Potassium Level 3.4 mmol/L (3.5-5.1) Chloride Level 107 mmol/L (98-107) Carbon Dioxide Level 24 mmol/L (21-32) Anion Gap 12 (6-14) Blood Urea Nitrogen 4 mg/dL (7-20) Creatinine 0.7 mg/dL (0.6-1.0) Estimated GFR (Cockcroft-Gault) 94.7 BUN/Creatinine Ratio 6 (6-20) Glucose Level 293 mg/dL (70-99) Calcium Level 7.3 mg/dL (8.5-10.1) Phosphorus Level 1.4 mg/dL (2.6-4.7) Magnesium Level 1.9 mg/dL (1.8-2.4) Total Bilirubin 0.6 mg/dL (0.2-1.0) Aspartate Amino Transf (AST/SGOT) 149 U/L (15-37) Alanine Aminotransferase (ALT/SGPT) 181 U/L (14-59) Alkaline Phosphatase 80 U/L (46-116) Total Protein 6.6 g/dL (6.4-8.2) Albumin 2.3 g/dL (3.4-5.0) Albumin/Globulin Ratio 0.5 (1.0-1.7) Lipase 6848 U/L (73-393) Test 03/18/18 06:17 03/18/18 07:59 03/18/18 08:45 Glucose (Fingerstick) 247 mg/dL (70-99) 274 mg/dL (70-99) Sodium Level 138 mmol/L (136-145) Potassium Level 3.9 mmol/L (3.5-5.1) Chloride Level 102 mmol/L (98-107) Carbon Dioxide Level 20 mmol/L (21-32) Anion Gap 16 (6-14) Blood Urea Nitrogen 4 mg/dL (7-20) Creatinine 0.5 mg/dL (0.6-1.0) Estimated GFR (Cockcroft-Gault) 139.6 Glucose Level 318 mg/dL (70-99) Calcium Level 6.9 mg/dL (8.5-10.1) Phosphorus Level 2.2 mg/dL (2.6-4.7) Medications Current Medications Sodium Chloride 1,000 ml @ 1,000 mls/hr 1X ONCE IV Last administered on 03/17at 08:41; Start 03/17/18 at 08:15; Stop 03/17/18 at 09:14; Status DC Ondansetron HCl (Zofran) 4 mg 1X ONCE IV Last administered on 03/17/18at 08:40 ; Start 03/17/18 at 08:15; Stop 03/17/18 at 08:16; Status DC Morphine Sulfate (Morphine Sulfate) 5 mg 1X ONCE IV Last administered on 03/17at 08:40; Start 03/17/18 at 08:15; Stop 03/17/18 at 08:16; Status DC Iohexol (Omnipaque 300 Mg/ml) 75 ml 1X ONCE IV Last administered on at 10:19; Start 03/17/18 at 09:00; Stop 03/17/18 at 09:01; Status DC Info (CONTRAST GIVEN -- Rx MONITORING) 1 each PRN DAILY PRN MC SEE COMMENTS; Start 03/17/18 at 09:00; Stop 03/19/18 at 08:59 Morphine Sulfate (Morphine Sulfate) 5 mg 1X ONCE IV Last administered on 03/17at 09:25; Start 03/17/18 at 09:15; Stop 03/17/18 at 09:16; Status DC Prochlorperazine Edisylate (Compazine) 10 mg 1X ONCE IV Last administered on 03/17/18at 09:25; Start 03/17/18 at 09:15; Stop 03/17/18 at 09:16; Status DC Sodium Chloride 1,000 ml @ 1,000 mls/hr Q1H IV ; Start 03/17/18 at 10:58; Stop 03/17/18 at 11:57; Status DC Insulin Human Regular 150 unit/ Sodium Chloride 151.5 ml @ 0 mls/hr CONT PRN PRN IV PER PROTOCOL; Start 03/17/18 at 11:00; Status Cancel Insulin Human Regular 150 ml @ 0 mls/hr CONT PRN PRN IV PER PROTOCOL Last administered on 03/17/18at 15:23; Start 03/17/18 at 11:15; Stop 03/17/18 at 13 :01; Status DC Insulin Human Regular 150 unit/ Sodium Chloride 151.5 ml @ 0 mls/hr CONT PRN PRN IV PER PROTOCOL Last administered on 03/17/18at 18:34; Start 03/17/18 at 18 :00; Stop 03/18/18 at 03:41; Status DC Ondansetron HCl (Zofran) 4 mg PRN Q8HRS PRN IV NAUSEA/VOMITING Last administered on 03/17/18at 14:46; Start 03/17/18 at 11:45; Stop 03/18/18 at 11 :44; Status DC Morphine Sulfate (Morphine Sulfate) 4 mg PRN Q2HR PRN IV PAIN Last administered on 03/18/18at 06:24; Start 03/17/18 at 11:45; Stop 03/18/18 at 11 :44; Status DC Sodium Chloride 1,000 ml @ 125 mls/hr 1X ONCE IV Last administered on at 15:21; Start 03/17/18 at 11:45; Stop 03/17/18 at 19:44; Status DC Famotidine (Pepcid Vial) 20 mg QHS IVP Last administered on 03/17/18at 20:37; Start 03/17/18 at 21:00 Enoxaparin Sodium (Lovenox 40mg Syringe) 40 mg Q24H SQ Last administered on at 15:54; Start 03/17/18 at 16:00 Acetaminophen (Tylenol) 650 mg PRN Q6HRS PRN PO FEVER; Start 03/17/18 at 14:30 Ondansetron HCl (Zofran) 4 mg PRN Q6HRS PRN IV NAUSEA/VOMITING; Start at 14:30 Morphine Sulfate (Morphine Sulfate) 2 mg PRN Q2HR PRN IV MODERATE TO SEVERE PAIN; Start 03/17/18 at 14:30 Tramadol HCl (Ultram) 50 mg PRN Q6HRS PRN PO MILD TO MODERATE PAIN Last administered on 03/18/18at 08:32; Start 03/17/18 at 14:30 Docusate Sodium (Colace) 100 mg PRN DAILY PRN PO CONSTIPATION; Start 03/17/18 at 14:30 Labetalol HCl (Normodyne Iv Push) 20 mg PRN Q2HR PRN IVP HYPERTENSION, SEE COMMENTS; Start 03/17/18 at 14:30 Ceftriaxone Sodium 1 gm/ Dextrose 50 ml @ 100 mls/hr Q24H IV ; Start 03/17/18 at 14:30; Status UNV Potassium Phosphate 10 mmol/ Dextrose 253.3333 ml @ 126.... Q2H IV Last administered on 03/17/18at 17:30; Start 03/17/18 at 15:30; Stop 03/17/18 at 19 :29; Status DC Ceftriaxone Sodium (Rocephin) 1 gm Q24H IVP Last administered on 03/17/18at 15: 53; Start 03/17/18 at 15:00 Influenza Virus Vaccine (Afluria Trivalent 3950-3299 Syringe) 0.5 ml ONCE ONCE VAX IM Last administered on 03/18/18at 08:18; Start 03/17/18 at 17:00; Stop 03/17/18 at 17:01; Status DC Sodium Chloride 1,000 ml @ 500 mls/hr Q2H IV ; Start 03/17/18 at 19:10; Stop 03/17/18 at 21:09; Status Cancel Magnesium Sulfate/ Dextrose 100 ml @ 25 mls/hr PRN DAILY PRN IV MAG < 1.8; Start 03/18/18 at 09:00; Stop 03/18/18 at 09:00; Status DC Sodium Phosphate 40 mmol/Sodium Chloride 513.3333 ml @ 83.3 mls/hr 1X PRN PRN IV SEE COMMENTS; Start 03/17/18 at 19:15; Stop 03/18/18 at 03:41; Status DC Sodium Phosphate 20 mmol/Dextrose 256.6667 ml @ 62.5 mls/hr 1X PRN PRN IV SEE COMMENTS Last administered on 03/17/18at 21:41; Start 03/17/18 at 19:15; Stop 03/18/18 at 03:41; Status DC Sodium Phosphate 10 mmol/Dextrose 253.3333 ml @ 62.5 mls/hr 1X PRN PRN IV SEE COMMENTS; Start 03/17/18 at 19:15; Stop 03/18/18 at 03:41; Status DC Sodium Chloride 1,000 ml @ 250 mls/hr Q4H IV Last administered on 03/17/18at 19:29; Start 03/17/18 at 19:18; Stop 03/17/18 at 21:33; Status DC Potassium Chloride/Dextrose/ Sod Cl 1,000 ml @ 250 mls/hr Q4H IV Last administered on 03/17/18at 21:35; Start 03/17/18 at 22:00; Stop 03/18/18 at 01 :59; Status DC Sodium Chloride 1,000 ml @ 250 mls/hr Q4H IV Last administered on 03/18/18at 01:40; Start 03/18/18 at 01:40; Stop 03/18/18 at 03:38; Status DC Potassium Chloride 40 meq/ Sodium Chloride 1,020 ml @ 250 mls/hr Q4H5M IV Last administered on 03/18/18at 03:54; Start 03/18/18 at 04:00; Stop 03/18/18 at 08:04; Status DC Sodium Chloride 1,000 ml @ 100 mls/hr Q10H IV Last administered on 03/18/18at 11:45; Start 03/18/18 at 08:00 Insulin Human Lispro (HumaLOG) 0-7 UNITS QIDACHS SQ ; Start 03/18/18 at 07:30; Stop 03/18/18 at 07:30; Status DC Dextrose (Dextrose 50%-Water Syringe) 12.5 gm PRN Q15MIN PRN IV SEE COMMENTS; Start 03/18/18 at 03:45 Insulin Human Lispro (HumaLOG) 0-7 UNITS Q6HRS SQ Last administered on at 08:06; Start 03/18/18 at 07:30 Active Scripts Active Reported Tricor (Fenofibrate Nanocrystallized) 145 Mg Tablet 145 Mg PO DAILY Novolog Flexpen (Insulin Aspart) 100 Unit/1 Ml Insuln.pen 35 Unit SQ BIDAC Humulin N Kwikpen (Nph, Human Insulin Isophane) 100 Unit/1 Ml Insuln.pen 35 Unit SQ BID Vitals/I & O Vital Sign - Last 24 Hours 10/03/17/18 03/17/18 03/17/18 12:00 12:01 12:30 14:30 Temp 98.5 98.5 Pulse 104 110 110 Resp 18 16 B/P (MAP) 199/84 (122) 165/77 (106) 148/79 (102) Pulse Ox 95 96 96 O2 Delivery Room Air Room Air Room Air 03/17/18 03/17/18 03/17/18 03/17/18 14:47 15:00 16:00 16:00 Pulse 122 112 Resp 16 16 16 B/P (MAP) 160/78 (105) 158/75 (102) Pulse Ox 96 96 O2 Delivery Room Air Room Air Room Air Room Air 03/17/18 03/17/18 03/17/18 03/17/18 18:11 19:00 20:00 20:00 Temp 98.2 98.2 Pulse 110 112 Resp 16 20 20 B/P (MAP) 157/75 (102) 157/74 (101) Pulse Ox 95 97 O2 Delivery Room Air Room Air Room Air Room Air 03/17/18 03/17/18 03/17/18 03/17/18 20:22 21:00 22:00 23:00 Pulse 108 109 103 Resp 20 24 22 22 B/P (MAP) 131/76 (94) 122/67 (85) 133/71 (91) Pulse Ox 97 94 92 95 O2 Delivery Room Air Room Air Room Air Room Air 03/17/18 03/17/18 03/17/18 03/18/18 23:00 23:59 23:59 01:00 Temp 98.4 98.4 Pulse 113 110 Resp 22 24 20 B/P (MAP) 128/60 (82) 133/66 (88) Pulse Ox 94 92 92 O2 Delivery Room Air Room Air Room Air Room Air 03/18/18 03/18/18 03/18/18 03/18/18 01:45 02:00 03:00 03:56 Pulse 107 107 Resp 24 20 22 26 B/P (MAP) 131/60 (83) 132/63 (86) Pulse Ox 95 92 90 94 O2 Delivery Room Air Room Air Room Air 03/18/18 03/18/18 03/18/18 03/18/18 04:00 04:00 05:00 06:00 Temp 98.7 98.7 Pulse 107 106 108 Resp 26 20 24 B/P (MAP) 130/68 (88) 141/65 (90) 159/68 (98) Pulse Ox 92 90 94 O2 Delivery Room Air Room Air Room Air Room Air 03/18/18 03/18/18 03/18/18 03/18/18 06:24 06:50 07:00 07:51 Pulse 106 Resp 20 22 22 B/P (MAP) 167/71 (103) Pulse Ox 94 94 95 O2 Delivery Room Air Room Air Room Air 03/18/18 03/18/18 03/18/18 03/18/18 08:00 08:00 08:32 09:00 Temp 98.1 98.1 Pulse 104 104 Resp 22 25 22 B/P (MAP) 150/73 (98) 137/63 (87) Pulse Ox 92 94 O2 Delivery Room Air Room Air Room Air Room Air 03/18/18 03/18/18 03/18/18 10:00 11:00 11:46 Pulse 108 106 Resp 21 26 B/P (MAP) 151/77 (101) 156/71 (99) Pulse Ox 94 93 94 O2 Delivery Room Air Room Air Room Air Intake and Output 03/17/18 03/17/18 03/18/18 15:00 23:00 07:00 Intake Total 1000 ml 1732 ml 1921 ml Output Total 1800 ml 450 ml Balance 1000 ml -68 ml 1471 ml TRISTEN ANDRADE III DO Mar 18, 2018 11:55
[2018-03-18] MEDS: MORPHINE SULFATE 2 MG/ML VIAL. IV PRN ×4 (11:56→23:34)
--- NOTE | 2018-03-18 12:15 | PDOC ---
Subjective: Subjective: Feels much better - no abd pain, no n/v, tolerating water. Objective: Objective: RN asks about transferring to regular floor. Some tachycardia noted. Vital Signs: Vital Signs Date Time Temp Pulse Resp B/P (MAP) Pulse Ox O2 Delivery O2 Flow Rate FiO2 03/18/18 11:56 95 Room Air 03/18/18 11:00 106 26 156/71 (99) 03/18/18 08:00 98.1 98.1 Labs: Laboratory Tests Test 03/17/18 12:49 03/17/18 14:54 03/17/18 15:00 03/17/18 16:13 Glucose (Fingerstick) 346 mg/dL 345 mg/dL 340 mg/dL Sodium Level 141 mmol/L Potassium Level 4.0 mmol/L Chloride Level 100 mmol/L Carbon Dioxide Level 18 mmol/L Anion Gap 23 Blood Urea Nitrogen 5 mg/dL Creatinine 0.7 mg/dL Estimated GFR (Cockcroft-Gault) 94.7 Glucose Level 384 mg/dL Calcium Level 8.5 mg/dL Phosphorus Level 3.3 mg/dL Magnesium Level 2.0 mg/dL Test 03/17/18 17:17 03/17/18 18:26 03/17/18 19:22 03/17/18 20:25 Glucose (Fingerstick) 309 mg/dL 323 mg/dL 260 mg/dL Sodium Level 143 mmol/L Potassium Level 3.3 mmol/L Chloride Level 105 mmol/L Carbon Dioxide Level 21 mmol/L Anion Gap 17 Blood Urea Nitrogen 4 mg/dL Creatinine 0.8 mg/dL Estimated GFR (Cockcroft-Gault) 81.2 Glucose Level 285 mg/dL Calcium Level 8.1 mg/dL Phosphorus Level 1.5 mg/dL Magnesium Level 2.0 mg/dL Test 03/17/18 20:26 03/17/18 21:38 03/17/18 22:29 03/17/18 23:36 Glucose (Fingerstick) 233 mg/dL 195 mg/dL 245 mg/dL 263 mg/dL Test 03/18/18 00:31 03/18/18 01:33 03/18/18 01:45 03/18/18 02:47 Glucose (Fingerstick) 295 mg/dL 260 mg/dL 212 mg/dL White Blood Count 5.5 x10^3/uL Red Blood Count 4.19 x10^6/uL Hemoglobin 11.8 g/dL Hematocrit 35.4 % Mean Corpuscular Volume 85 fL Mean Corpuscular Hemoglobin 28 pg Mean Corpuscular Hemoglobin Concent 33 g/dL Red Cell Distribution Width 13.7 % Platelet Count 196 x10^3/uL Segmented Neutrophils % 72 % Band Neutrophils % 8 % Lymphocytes % 17 % Monocytes % 3 % Platelet Estimate Adequate Sodium Level 143 mmol/L Potassium Level 3.4 mmol/L Chloride Level 107 mmol/L Carbon Dioxide Level 24 mmol/L Anion Gap 12 Blood Urea Nitrogen 4 mg/dL Creatinine 0.7 mg/dL Estimated GFR (Cockcroft-Gault) 94.7 BUN/Creatinine Ratio 6 Glucose Level 293 mg/dL Calcium Level 7.3 mg/dL Phosphorus Level 1.4 mg/dL Magnesium Level 1.9 mg/dL Total Bilirubin 0.6 mg/dL Aspartate Amino Transf (AST/SGOT) 149 U/L Alanine Aminotransferase (ALT/SGPT) 181 U/L Alkaline Phosphatase 80 U/L Total Protein 6.6 g/dL Albumin 2.3 g/dL Albumin/Globulin Ratio 0.5 Lipase 6848 U/L Test 03/18/18 06:17 03/18/18 07:59 03/18/18 08:45 03/18/18 11:52 Glucose (Fingerstick) 247 mg/dL 274 mg/dL 248 mg/dL Sodium Level 138 mmol/L Potassium Level 3.9 mmol/L Chloride Level 102 mmol/L Carbon Dioxide Level 20 mmol/L Anion Gap 16 Blood Urea Nitrogen 4 mg/dL Creatinine 0.5 mg/dL Estimated GFR (Cockcroft-Gault) 139.6 Glucose Level 318 mg/dL Calcium Level 6.9 mg/dL Phosphorus Level 2.2 mg/dL Imaging: MRCP Impression: 1. Acute pancreatitis. No evidence of pancreas divisum. 2. No evidence of choledocholithiasis or biliary obstruction. 3. Severe fatty liver disease. PE: GEN: NAD LUNGS: CTAB HEART: tachycardic ABD: BS+, soft, non-tender NEURO/PSYCH: A & O 3, smiling A/P: Recurrent pancreatitis, hypertriglyceridemia Elevated LFTs (better), severe hepatic steatosis -- Improving - can cautiously try clears, already taking some water. Triglycerides, DM, and HTN per primary. ERIK-BRANINE,MONICA PA Mar 18, 2018 12:15
[2018-03-18 13:37] LABS: CALCIUM 7.2 mg/dL (8.5-10.1); CREATININE 0.5 mg/dL (0.6-1.0); GFR 139.6
[2018-03-18 13:40] LABS: POTASSIUM 3.8 mmol/L (3.5-5.1)
[2018-03-18] MEDS: ENOXAPARIN 40 MG/0.4 ML SYRINGE. SQ SCH (15:21)
[2018-03-18] MEDS: cefTRIAXone IV Push 1 GM VIAL. IVP SCH (15:21)
[2018-03-18 19:16] LABS: HEMOGLOBIN A1C 8.7 % (4.8-5.6)
[2018-03-18] MEDS ORDERED: INSULIN GLARGINE 300 UNITS/3 ML INSULN.PEN. SQ ONE (20:00)
[2018-03-18] MEDS: FAMOTIDINE 20 MG/2 ML VIAL IVP SCH (21:33)
[2018-03-18] MEDS: ONDANSETRON PF 4 MG/2 ML VIAL. IV PRN (23:41)
[2018-03-19 03:00] VITALS: BP 126/70
[2018-03-19] MEDS: traMADol 50 MG TABLET PO PRN ×3 (03:41→18:43)
[2018-03-19] MEDS: IV 1/2 NORMAL SALINE 1,000 ML IV SCH ×3 (03:43→20:58)
[2018-03-19] MEDS: MORPHINE SULFATE 2 MG/ML VIAL. IV PRN ×5 (04:50→21:01)
[2018-03-19 06:09] LABS: BASO # 0.1 x10^3/uL (0.0-0.2); BASO % 1 % (0-3); EOS # 0.1 x10^3/uL (0.0-0.7); EOS % 1 % (0-3); HEMATOCRIT 33.5 % (36.0-47.0); HEMOGLOBIN 11.6 g/dL (12.0-15.5); LYMPH # 0.6 x10^3/uL (1.0-4.8); LYMPH % 9 % (24-48); MEAN CORPUSCULAR HEMOGLOBIN 30 pg (25-35); MEAN CORPUSCULAR HGB CONC 35 g/dL (31-37); MEAN CORPUSCULAR VOLUME 86 fL (79-100); MONO # 0.4 x10^3/uL (0.0-1.1); MONO % 7 % (0-9); NEUT # 5.4 x10^3uL (1.8-7.7); NEUT % 83 % (31-73); PLATELET COUNT 175 x10^3/uL (140-400); RED BLOOD COUNT 3.88 x10^6/uL (3.50-5.40); RED CELL DISTRIBUTION WIDTH 14.2 % (11.5-14.5); WHITE BLOOD COUNT 6.5 x10^3/uL (4.0-11.0)
[2018-03-19] MEDS: ONDANSETRON PF 4 MG/2 ML VIAL. IV PRN ×2 (06:11→12:15)
[2018-03-19 06:40] LABS: CALCIUM 7.4 mg/dL (8.5-10.1); CREATININE 0.5 mg/dL (0.6-1.0); GFR 139.6; POTASSIUM 3.1 mmol/L (3.5-5.1)
[2018-03-19 08:00] VITALS: BP 141/74
[2018-03-19] MEDS: INSULIN LISPRO 300 UNITS/3 ML INSULN.PEN. SQ SCH ×7 (08:52→21:00)
--- NOTE | 2018-03-19 10:20 | PDOC ---
PROGRESS NOTES Chief Complaint Chief Complaint Acute recurrent pancreatitis H/o pancreatitis with HLD DKA, anion gap closed, resolved T2DM on insulin Htn urgency Elevated transaminitis H/o cholecystectomy HLD Hypophosphatemia Hypokalemia Possible UTI iv pain control replace lytes gi consult accuchecks History of Present Illness History of Present Illness Pt seen and examined in ICU Laying in bed, calm, cooperative Discussed with RN Vitals Vitals Vital Signs Date Time Temp Pulse Resp B/P (MAP) Pulse Ox O2 Delivery O2 Flow Rate FiO2 03/19/18 10:14 Room Air 03/19/18 08:00 99.0 102 20 141/74 (96) 91 99.0 Physical Exam General: Alert, Oriented X3, Cooperative, mild distress Heart: Regular rate, Normal S1, Normal S2 Lungs: Clear Abdomen: Normal bowel sounds, Soft, Other (mild epigastric tenderness) Extremities: No clubbing, No cyanosis, No edema Skin: No rashes, No breakdown Labs LABS Laboratory Tests Test 03/18/18 11:52 03/18/18 12:30 03/18/18 17:35 03/18/18 21:55 Glucose (Fingerstick) 248 mg/dL (70-99) 259 mg/dL (70-99) 225 mg/dL (70-99) Sodium Level 140 mmol/L (136-145) Potassium Level 3.8 mmol/L (3.5-5.1) Chloride Level 104 mmol/L (98-107) Carbon Dioxide Level 21 mmol/L (21-32) Anion Gap 15 (6-14) Blood Urea Nitrogen 5 mg/dL (7-20) Creatinine 0.5 mg/dL (0.6-1.0) Estimated GFR (Cockcroft-Gault) 139.6 Glucose Level 274 mg/dL (70-99) Calcium Level 7.2 mg/dL (8.5-10.1) Lipase 3815 U/L (73-393) Test 03/19/18 05:05 03/19/18 07:35 White Blood Count 6.5 x10^3/uL (4.0-11.0) Red Blood Count 3.88 x10^6/uL (3.50-5.40) Hemoglobin 11.6 g/dL (12.0-15.5) Hematocrit 33.5 % (36.0-47.0) Mean Corpuscular Volume 86 fL (79-100) Mean Corpuscular Hemoglobin 30 pg (25-35) Mean Corpuscular Hemoglobin Concent 35 g/dL (31-37) Red Cell Distribution Width 14.2 % (11.5-14.5) Platelet Count 175 x10^3/uL (140-400) Neutrophils (%) (Auto) 83 % (31-73) Lymphocytes (%) (Auto) 9 % (24-48) Monocytes (%) (Auto) 7 % (0-9) Eosinophils (%) (Auto) 1 % (0-3) Basophils (%) (Auto) 1 % (0-3) Neutrophils # (Auto) 5.4 x10^3uL (1.8-7.7) Lymphocytes # (Auto) 0.6 x10^3/uL (1.0-4.8) Monocytes # (Auto) 0.4 x10^3/uL (0.0-1.1) Eosinophils # (Auto) 0.1 x10^3/uL (0.0-0.7) Basophils # (Auto) 0.1 x10^3/uL (0.0-0.2) Sodium Level 135 mmol/L (136-145) Potassium Level 3.1 mmol/L (3.5-5.1) Chloride Level 98 mmol/L (98-107) Carbon Dioxide Level 22 mmol/L (21-32) Anion Gap 15 (6-14) Blood Urea Nitrogen 3 mg/dL (7-20) Creatinine 0.5 mg/dL (0.6-1.0) Estimated GFR (Cockcroft-Gault) 139.6 Glucose Level 223 mg/dL (70-99) Calcium Level 7.4 mg/dL (8.5-10.1) Lipase 3138 U/L (73-393) Glucose (Fingerstick) 201 mg/dL (70-99) Assessment and Plan Assessmemt and Plan Problems Medical Problems: (1) Acute pancreatitis Status: Acute (2) DKA (diabetic ketoacidoses) Status: Acute Comment Review of Relevant I have reviewed the following items destiny (where applicable) has been applied. Labs Laboratory Tests Test 03/17/18 12:49 03/17/18 14:54 03/17/18 15:00 03/17/18 16:13 Glucose (Fingerstick) 346 mg/dL (70-99) 345 mg/dL (70-99) 340 mg/dL (70-99) Sodium Level 141 mmol/L (136-145) Potassium Level 4.0 mmol/L (3.5-5.1) Chloride Level 100 mmol/L (98-107) Carbon Dioxide Level 18 mmol/L (21-32) Anion Gap 23 (6-14) Blood Urea Nitrogen 5 mg/dL (7-20) Creatinine 0.7 mg/dL (0.6-1.0) Estimated GFR (Cockcroft-Gault) 94.7 Glucose Level 384 mg/dL (70-99) Calcium Level 8.5 mg/dL (8.5-10.1) Phosphorus Level 3.3 mg/dL (2.6-4.7) Magnesium Level 2.0 mg/dL (1.8-2.4) Test 03/17/18 17:17 03/17/18 18:00 03/17/18 18:26 03/17/18 19:22 Glucose (Fingerstick) 309 mg/dL (70-99) 323 mg/dL (70-99) 260 mg/dL (70-99) Nasal Screen MRSA (PCR) Negative (Negative) Test 03/17/18 20:25 03/17/18 20:26 03/17/18 21:38 03/17/18 22:29 Sodium Level 143 mmol/L (136-145) Potassium Level 3.3 mmol/L (3.5-5.1) Chloride Level 105 mmol/L (98-107) Carbon Dioxide Level 21 mmol/L (21-32) Anion Gap 17 (6-14) Blood Urea Nitrogen 4 mg/dL (7-20) Creatinine 0.8 mg/dL (0.6-1.0) Estimated GFR (Cockcroft-Gault) 81.2 Glucose Level 285 mg/dL (70-99) Calcium Level 8.1 mg/dL (8.5-10.1) Phosphorus Level 1.5 mg/dL (2.6-4.7) Magnesium Level 2.0 mg/dL (1.8-2.4) Glucose (Fingerstick) 233 mg/dL (70-99) 195 mg/dL (70-99) 245 mg/dL (70-99) Test 03/17/18 23:36 03/18/18 00:31 03/18/18 01:33 03/18/18 01:45 Glucose (Fingerstick) 263 mg/dL (70-99) 295 mg/dL (70-99) 260 mg/dL (70-99) White Blood Count 5.5 x10^3/uL (4.0-11.0) Red Blood Count 4.19 x10^6/uL (3.50-5.40) Hemoglobin 11.8 g/dL (12.0-15.5) Hematocrit 35.4 % (36.0-47.0) Mean Corpuscular Volume 85 fL (79-100) Mean Corpuscular Hemoglobin 28 pg (25-35) Mean Corpuscular Hemoglobin Concent 33 g/dL (31-37) Red Cell Distribution Width 13.7 % (11.5-14.5) Platelet Count 196 x10^3/uL (140-400) Segmented Neutrophils % 72 % (35-66) Band Neutrophils % 8 % (0-9) Lymphocytes % 17 % (24-48) Monocytes % 3 % (0-10) Platelet Estimate Adequate (ADEQUATE) Sodium Level 143 mmol/L (136-145) Potassium Level 3.4 mmol/L (3.5-5.1) Chloride Level 107 mmol/L (98-107) Carbon Dioxide Level 24 mmol/L (21-32) Anion Gap 12 (6-14) Blood Urea Nitrogen 4 mg/dL (7-20) Creatinine 0.7 mg/dL (0.6-1.0) Estimated GFR (Cockcroft-Gault) 94.7 BUN/Creatinine Ratio 6 (6-20) Glucose Level 293 mg/dL (70-99) Hemoglobin A1c 8.7 % (4.8-5.6) Calcium Level 7.3 mg/dL (8.5-10.1) Phosphorus Level 1.4 mg/dL (2.6-4.7) Magnesium Level 1.9 mg/dL (1.8-2.4) Total Bilirubin 0.6 mg/dL (0.2-1.0) Aspartate Amino Transf (AST/SGOT) 149 U/L (15-37) Alanine Aminotransferase (ALT/SGPT) 181 U/L (14-59) Alkaline Phosphatase 80 U/L (46-116) Total Protein 6.6 g/dL (6.4-8.2) Albumin 2.3 g/dL (3.4-5.0) Albumin/Globulin Ratio 0.5 (1.0-1.7) Lipase 6848 U/L (73-393) Test 03/18/18 02:47 03/18/18 06:17 03/18/18 07:59 03/18/18 08:45 Glucose (Fingerstick) 212 mg/dL (70-99) 247 mg/dL (70-99) 274 mg/dL (70-99) Sodium Level 138 mmol/L (136-145) Potassium Level 3.9 mmol/L (3.5-5.1) Chloride Level 102 mmol/L (98-107) Carbon Dioxide Level 20 mmol/L (21-32) Anion Gap 16 (6-14) Blood Urea Nitrogen 4 mg/dL (7-20) Creatinine 0.5 mg/dL (0.6-1.0) Estimated GFR (Cockcroft-Gault) 139.6 Glucose Level 318 mg/dL (70-99) Calcium Level 6.9 mg/dL (8.5-10.1) Phosphorus Level 2.2 mg/dL (2.6-4.7) Test 03/18/18 11:52 03/18/18 12:30 03/18/18 17:35 03/18/18 21:55 Glucose (Fingerstick) 248 mg/dL (70-99) 259 mg/dL (70-99) 225 mg/dL (70-99) Sodium Level 140 mmol/L (136-145) Potassium Level 3.8 mmol/L (3.5-5.1) Chloride Level 104 mmol/L (98-107) Carbon Dioxide Level 21 mmol/L (21-32) Anion Gap 15 (6-14) Blood Urea Nitrogen 5 mg/dL (7-20) Creatinine 0.5 mg/dL (0.6-1.0) Estimated GFR (Cockcroft-Gault) 139.6 Glucose Level 274 mg/dL (70-99) Calcium Level 7.2 mg/dL (8.5-10.1) Lipase 3815 U/L (73-393) Test 03/19/18 05:05 03/19/18 07:35 White Blood Count 6.5 x10^3/uL (4.0-11.0) Red Blood Count 3.88 x10^6/uL (3.50-5.40) Hemoglobin 11.6 g/dL (12.0-15.5) Hematocrit 33.5 % (36.0-47.0) Mean Corpuscular Volume 86 fL (79-100) Mean Corpuscular Hemoglobin 30 pg (25-35) Mean Corpuscular Hemoglobin Concent 35 g/dL (31-37) Red Cell Distribution Width 14.2 % (11.5-14.5) Platelet Count 175 x10^3/uL (140-400) Neutrophils (%) (Auto) 83 % (31-73) Lymphocytes (%) (Auto) 9 % (24-48) Monocytes (%) (Auto) 7 % (0-9) Eosinophils (%) (Auto) 1 % (0-3) Basophils (%) (Auto) 1 % (0-3) Neutrophils # (Auto) 5.4 x10^3uL (1.8-7.7) Lymphocytes # (Auto) 0.6 x10^3/uL (1.0-4.8) Monocytes # (Auto) 0.4 x10^3/uL (0.0-1.1) Eosinophils # (Auto) 0.1 x10^3/uL (0.0-0.7) Basophils # (Auto) 0.1 x10^3/uL (0.0-0.2) Sodium Level 135 mmol/L (136-145) Potassium Level 3.1 mmol/L (3.5-5.1) Chloride Level 98 mmol/L (98-107) Carbon Dioxide Level 22 mmol/L (21-32) Anion Gap 15 (6-14) Blood Urea Nitrogen 3 mg/dL (7-20) Creatinine 0.5 mg/dL (0.6-1.0) Estimated GFR (Cockcroft-Gault) 139.6 Glucose Level 223 mg/dL (70-99) Calcium Level 7.4 mg/dL (8.5-10.1) Lipase 3138 U/L (73-393) Glucose (Fingerstick) 201 mg/dL (70-99) Laboratory Tests Test 03/18/18 11:52 03/18/18 12:30 03/18/18 17:35 03/18/18 21:55 Glucose (Fingerstick) 248 mg/dL (70-99) 259 mg/dL (70-99) 225 mg/dL (70-99) Sodium Level 140 mmol/L (136-145) Potassium Level 3.8 mmol/L (3.5-5.1) Chloride Level 104 mmol/L (98-107) Carbon Dioxide Level 21 mmol/L (21-32) Anion Gap 15 (6-14) Blood Urea Nitrogen 5 mg/dL (7-20) Creatinine 0.5 mg/dL (0.6-1.0) Estimated GFR (Cockcroft-Gault) 139.6 Glucose Level 274 mg/dL (70-99) Calcium Level 7.2 mg/dL (8.5-10.1) Lipase 3815 U/L (73-393) Test 03/19/18 05:05 03/19/18 07:35 White Blood Count 6.5 x10^3/uL (4.0-11.0) Red Blood Count 3.88 x10^6/uL (3.50-5.40) Hemoglobin 11.6 g/dL (12.0-15.5) Hematocrit 33.5 % (36.0-47.0) Mean Corpuscular Volume 86 fL (79-100) Mean Corpuscular Hemoglobin 30 pg (25-35) Mean Corpuscular Hemoglobin Concent 35 g/dL (31-37) Red Cell Distribution Width 14.2 % (11.5-14.5) Platelet Count 175 x10^3/uL (140-400) Neutrophils (%) (Auto) 83 % (31-73) Lymphocytes (%) (Auto) 9 % (24-48) Monocytes (%) (Auto) 7 % (0-9) Eosinophils (%) (Auto) 1 % (0-3) Basophils (%) (Auto) 1 % (0-3) Neutrophils # (Auto) 5.4 x10^3uL (1.8-7.7) Lymphocytes # (Auto) 0.6 x10^3/uL (1.0-4.8) Monocytes # (Auto) 0.4 x10^3/uL (0.0-1.1) Eosinophils # (Auto) 0.1 x10^3/uL (0.0-0.7) Basophils # (Auto) 0.1 x10^3/uL (0.0-0.2) Sodium Level 135 mmol/L (136-145) Potassium Level 3.1 mmol/L (3.5-5.1) Chloride Level 98 mmol/L (98-107) Carbon Dioxide Level 22 mmol/L (21-32) Anion Gap 15 (6-14) Blood Urea Nitrogen 3 mg/dL (7-20) Creatinine 0.5 mg/dL (0.6-1.0) Estimated GFR (Cockcroft-Gault) 139.6 Glucose Level 223 mg/dL (70-99) Calcium Level 7.4 mg/dL (8.5-10.1) Lipase 3138 U/L (73-393) Glucose (Fingerstick) 201 mg/dL (70-99) Medications Current Medications Sodium Chloride 1,000 ml @ 1,000 mls/hr 1X ONCE IV Last administered on 03/17at 08:41; Start 03/17/18 at 08:15; Stop 03/17/18 at 09:14; Status DC Ondansetron HCl (Zofran) 4 mg 1X ONCE IV Last administered on 03/17/18at 08:40 ; Start 03/17/18 at 08:15; Stop 03/17/18 at 08:16; Status DC Morphine Sulfate (Morphine Sulfate) 5 mg 1X ONCE IV Last administered on 03/17at 08:40; Start 03/17/18 at 08:15; Stop 03/17/18 at 08:16; Status DC Iohexol (Omnipaque 300 Mg/ml) 75 ml 1X ONCE IV Last administered on at 10:19; Start 03/17/18 at 09:00; Stop 03/17/18 at 09:01; Status DC Info (CONTRAST GIVEN -- Rx MONITORING) 1 each PRN DAILY PRN MC SEE COMMENTS; Start 03/17/18 at 09:00; Stop 03/19/18 at 08:59; Status DC Morphine Sulfate (Morphine Sulfate) 5 mg 1X ONCE IV Last administered on 03/17at 09:25; Start 03/17/18 at 09:15; Stop 03/17/18 at 09:16; Status DC Prochlorperazine Edisylate (Compazine) 10 mg 1X ONCE IV Last administered on 03/17/18at 09:25; Start 03/17/18 at 09:15; Stop 03/17/18 at 09:16; Status DC Sodium Chloride 1,000 ml @ 1,000 mls/hr Q1H IV ; Start 03/17/18 at 10:58; Stop 03/17/18 at 11:57; Status DC Insulin Human Regular 150 unit/ Sodium Chloride 151.5 ml @ 0 mls/hr CONT PRN PRN IV PER PROTOCOL; Start 03/17/18 at 11:00; Status Cancel Insulin Human Regular 150 ml @ 0 mls/hr CONT PRN PRN IV PER PROTOCOL Last administered on 03/17/18at 15:23; Start 03/17/18 at 11:15; Stop 03/17/18 at 13 :01; Status DC Insulin Human Regular 150 unit/ Sodium Chloride 151.5 ml @ 0 mls/hr CONT PRN PRN IV PER PROTOCOL Last administered on 03/17/18at 18:34; Start 03/17/18 at 18 :00; Stop 03/18/18 at 03:41; Status DC Ondansetron HCl (Zofran) 4 mg PRN Q8HRS PRN IV NAUSEA/VOMITING Last administered on 03/17/18at 14:46; Start 03/17/18 at 11:45; Stop 03/18/18 at 11 :44; Status DC Morphine Sulfate (Morphine Sulfate) 4 mg PRN Q2HR PRN IV PAIN Last administered on 03/18/18at 06:24; Start 03/17/18 at 11:45; Stop 03/18/18 at 11 :44; Status DC Sodium Chloride 1,000 ml @ 125 mls/hr 1X ONCE IV Last administered on at 15:21; Start 03/17/18 at 11:45; Stop 03/17/18 at 19:44; Status DC Famotidine (Pepcid Vial) 20 mg QHS IVP Last administered on 03/18/18at 21:33; Start 03/17/18 at 21:00 Enoxaparin Sodium (Lovenox 40mg Syringe) 40 mg Q24H SQ Last administered on at 15:21; Start 03/17/18 at 16:00 Acetaminophen (Tylenol) 650 mg PRN Q6HRS PRN PO FEVER Last administered on at 23:37; Start 03/17/18 at 14:30 Ondansetron HCl (Zofran) 4 mg PRN Q6HRS PRN IV NAUSEA/VOMITING Last administered on 03/19/18at 06:11; Start 03/17/18 at 14:30 Morphine Sulfate (Morphine Sulfate) 2 mg PRN Q2HR PRN IV MODERATE TO SEVERE PAIN Last administered on 03/19/18at 08:45; Start 03/17/18 at 14:30 Tramadol HCl (Ultram) 50 mg PRN Q6HRS PRN PO MILD TO MODERATE PAIN Last administered on 03/19/18at 03:41; Start 03/17/18 at 14:30 Docusate Sodium (Colace) 100 mg PRN DAILY PRN PO CONSTIPATION Last administered on 03/18/18at 18:05; Start 03/17/18 at 14:30 Labetalol HCl (Normodyne Iv Push) 20 mg PRN Q2HR PRN IVP HYPERTENSION, SEE COMMENTS; Start 03/17/18 at 14:30 Ceftriaxone Sodium 1 gm/ Dextrose 50 ml @ 100 mls/hr Q24H IV ; Start 03/17/18 at 14:30; Status UNV Potassium Phosphate 10 mmol/ Dextrose 253.3333 ml @ 126.... Q2H IV Last administered on 03/17/18at 17:30; Start 03/17/18 at 15:30; Stop 03/17/18 at 19 :29; Status DC Ceftriaxone Sodium (Rocephin) 1 gm Q24H IVP Last administered on 03/18/18at 15: 21; Start 03/17/18 at 15:00 Influenza Virus Vaccine (Afluria Trivalent [id number] Syringe) 0.5 ml ONCE ONCE VAX IM Last administered on 03/18/18at 08:18; Start 03/17/18 at 17:00; Stop 03/17/18 at 17:01; Status DC Sodium Chloride 1,000 ml @ 500 mls/hr Q2H IV ; Start 03/17/18 at 19:10; Stop 03/17/18 at 21:09; Status Cancel Magnesium Sulfate/ Dextrose 100 ml @ 25 mls/hr PRN DAILY PRN IV MAG < 1.8; Start 03/18/18 at 09:00; Stop 03/18/18 at 09:00; Status DC Sodium Phosphate 40 mmol/Sodium Chloride 513.3333 ml @ 83.3 mls/hr 1X PRN PRN IV SEE COMMENTS; Start 03/17/18 at 19:15; Stop 03/18/18 at 03:41; Status DC Sodium Phosphate 20 mmol/Dextrose 256.6667 ml @ 62.5 mls/hr 1X PRN PRN IV SEE COMMENTS Last administered on 03/17/18at 21:41; Start 03/17/18 at 19:15; Stop 03/18/18 at 03:41; Status DC Sodium Phosphate 10 mmol/Dextrose 253.3333 ml @ 62.5 mls/hr 1X PRN PRN IV SEE COMMENTS; Start 03/17/18 at 19:15; Stop 03/18/18 at 03:41; Status DC Sodium Chloride 1,000 ml @ 250 mls/hr Q4H IV Last administered on 03/17/18at 19:29; Start 03/17/18 at 19:18; Stop 03/17/18 at 21:33; Status DC Potassium Chloride/Dextrose/ Sod Cl 1,000 ml @ 250 mls/hr Q4H IV Last administered on 03/17/18at 21:35; Start 03/17/18 at 22:00; Stop 03/18/18 at 01 :59; Status DC Sodium Chloride 1,000 ml @ 250 mls/hr Q4H IV Last administered on 03/18/18at 01:40; Start 03/18/18 at 01:40; Stop 03/18/18 at 03:38; Status DC Potassium Chloride 40 meq/ Sodium Chloride 1,020 ml @ 250 mls/hr Q4H5M IV Last administered on 03/18/18at 03:54; Start 03/18/18 at 04:00; Stop 03/18/18 at 08:04; Status DC Sodium Chloride 1,000 ml @ 100 mls/hr Q10H IV Last administered on 03/19/18at 03:43; Start 03/18/18 at 08:00 Insulin Human Lispro (HumaLOG) 0-7 UNITS QIDACHS SQ ; Start 03/18/18 at 07:30; Stop 03/18/18 at 07:30; Status DC Dextrose (Dextrose 50%-Water Syringe) 12.5 gm PRN Q15MIN PRN IV SEE COMMENTS; Start 03/18/18 at 03:45 Insulin Human Lispro (HumaLOG) 0-7 UNITS Q6HRS SQ Last administered on at 18:11; Start 03/18/18 at 07:30; Stop 03/18/18 at 20:03; Status DC Insulin Glargine (Lantus) 30 units 1X ONCE SQ Last administered on 03/18/18at 22:02; Start 03/18/18 at 20:00; Stop 03/18/18 at 20:06; Status DC Insulin Human Lispro (HumaLOG) 10 units TIDAC SQ Last administered on at 08:53; Start 03/19/18 at 07:30 Insulin Human Lispro (HumaLOG) 0-9 UNITS TIDACHC SQ Last administered on at 08:52; Start 03/18/18 at 21:00 Active Scripts Active Reported Tricor (Fenofibrate Nanocrystallized) 145 Mg Tablet 145 Mg PO DAILY Novolog Flexpen (Insulin Aspart) 100 Unit/1 Ml Insuln.pen 35 Unit SQ BIDAC Humulin N Kwikpen (Nph, Human Insulin Isophane) 100 Unit/1 Ml Insuln.pen 35 Unit SQ BID Vitals/I & O Vital Sign - Last 24 Hours 03/18/18 03/18/18 03/18/18 03/18/18 11:00 11:56 12:00 14:25 Temp 98.5 98.5 Pulse 106 106 Resp 26 22 B/P (MAP) 156/71 (99) 147/65 (92) Pulse Ox 93 95 95 O2 Delivery Room Air Room Air Room Air Room Air 03/18/18 03/18/18 03/18/18 03/18/18 15:00 15:00 15:21 18:04 Temp 98.3 98.3 Pulse 110 Resp 20 B/P (MAP) 130/74 (92) Pulse Ox 95 O2 Delivery Room Air Room Air Room Air Room Air 03/18/18 03/18/18 03/18/18 03/18/18 19:00 21:33 23:00 23:34 Temp 98.5 100.2 98.5 100.2 Pulse 110 111 Resp 18 16 16 16 B/P (MAP) 133/71 (91) 146/76 (99) Pulse Ox 93 95 91 95 O2 Delivery Room Air Room Air 03/19/18 03/19/18 03/19/18 03/19/18 03:00 03:41 04:50 04:53 Temp 98.7 98.7 Pulse 106 Resp 18 15 15 B/P (MAP) 126/70 (88) Pulse Ox 90 95 95 95 O2 Delivery Room Air Room Air Room Air 03/19/18 03/19/18 03/19/18 03/19/18 05:27 08:00 08:45 10:14 Temp 99.0 99.0 Pulse 102 Resp 14 20 B/P (MAP) 141/74 (96) Pulse Ox 95 91 O2 Delivery Room Air Room Air Room Air Intake and Output 03/18/18 03/18/18 03/19/18 15:00 23:00 07:00 Intake Total 1625 ml 480 ml Output Total 650 ml Balance 975 ml 480 ml SHIV ROJAS MD Mar 19, 2018 10:20
--- NOTE | 2018-03-19 11:31 | PDOC ---
Subjective: Subjective: More sore today. Nausea w/o vomiting - tolerating clear liquids. Loose stools. Objective: Objective: Tmax 100.2 Received Colace. Vital Signs: Vital Signs Date Time Temp Pulse Resp B/P (MAP) Pulse Ox O2 Delivery O2 Flow Rate FiO2 03/19/18 11:00 Room Air 03/19/18 08:00 99.0 102 20 141/74 (96) 91 99.0 Labs: Laboratory Tests Test 03/18/18 11:52 03/18/18 12:30 03/18/18 17:35 03/18/18 21:55 Glucose (Fingerstick) 248 mg/dL 259 mg/dL 225 mg/dL Sodium Level 140 mmol/L Potassium Level 3.8 mmol/L Chloride Level 104 mmol/L Carbon Dioxide Level 21 mmol/L Anion Gap 15 Blood Urea Nitrogen 5 mg/dL Creatinine 0.5 mg/dL Estimated GFR (Cockcroft-Gault) 139.6 Glucose Level 274 mg/dL Calcium Level 7.2 mg/dL Lipase 3815 U/L Test 03/19/18 05:05 03/19/18 07:35 White Blood Count 6.5 x10^3/uL Red Blood Count 3.88 x10^6/uL Hemoglobin 11.6 g/dL Hematocrit 33.5 % Mean Corpuscular Volume 86 fL Mean Corpuscular Hemoglobin 30 pg Mean Corpuscular Hemoglobin Concent 35 g/dL Red Cell Distribution Width 14.2 % Platelet Count 175 x10^3/uL Neutrophils (%) (Auto) 83 % Lymphocytes (%) (Auto) 9 % Monocytes (%) (Auto) 7 % Eosinophils (%) (Auto) 1 % Basophils (%) (Auto) 1 % Neutrophils # (Auto) 5.4 x10^3uL Lymphocytes # (Auto) 0.6 x10^3/uL Monocytes # (Auto) 0.4 x10^3/uL Eosinophils # (Auto) 0.1 x10^3/uL Basophils # (Auto) 0.1 x10^3/uL Sodium Level 135 mmol/L Potassium Level 3.1 mmol/L Chloride Level 98 mmol/L Carbon Dioxide Level 22 mmol/L Anion Gap 15 Blood Urea Nitrogen 3 mg/dL Creatinine 0.5 mg/dL Estimated GFR (Cockcroft-Gault) 139.6 Glucose Level 223 mg/dL Calcium Level 7.4 mg/dL Lipase 3138 U/L Glucose (Fingerstick) 201 mg/dL PE: GEN: NAD LUNGS: CTAB HEART: borderline tachycardia ABD: BS present but quiet, epigastric to BLQ soreness NEURO/PSYCH: A & O 3 A/P: Recurrent pancreatitis, hypertriglyceridemia Hypokalemia -- Lipase still >3000. She would like to keep drinking water, etc. Considering abd pain and nausea, would not advance diet beyond this. Treatment for lipids per primary, no endocrinology available here. MONICA HECK Mar 19, 2018 11:31
[2018-03-19 12:00] VITALS: BP 136/74
[2018-03-19] MEDS: cefTRIAXone IV Push 1 GM VIAL. IVP SCH (14:40)
[2018-03-19 16:00] VITALS: BP 130/68
[2018-03-19] MEDS: ENOXAPARIN 40 MG/0.4 ML SYRINGE. SQ SCH (16:45)
[2018-03-19 19:00] VITALS: BP 141/75
[2018-03-19] MEDS: LACTOBACILLUS RHAMNOSUS GG 1 CAPSULE. PO SCH (20:58)
[2018-03-19] MEDS: FAMOTIDINE 20 MG/2 ML VIAL IVP SCH (20:59)
[2018-03-19 23:00] VITALS: BP 137/75
[2018-03-20] MEDS: traMADol 50 MG TABLET PO PRN ×4 (00:57→20:53)
[2018-03-20 03:00] VITALS: BP 135/75
[2018-03-20] MEDS: MORPHINE SULFATE 2 MG/ML VIAL. IV PRN ×5 (03:43→20:46)
[2018-03-20 06:27] LABS: BASO % 1 % (0-3); EOS # 0.1 x10^3/uL (0.0-0.7); EOS % 1 % (0-3); HEMATOCRIT 31.8 % (36.0-47.0); HEMOGLOBIN 10.8 g/dL (12.0-15.5); LYMPH # 1.2 x10^3/uL (1.0-4.8); LYMPH % 16 % (24-48); MEAN CORPUSCULAR HEMOGLOBIN 29 pg (25-35); MEAN CORPUSCULAR HGB CONC 34 g/dL (31-37); MEAN CORPUSCULAR VOLUME 86 fL (79-100); MONO # 0.3 x10^3/uL (0.0-1.1); MONO % 4 % (0-9); NEUT # 6.1 x10^3uL (1.8-7.7); NEUT % 78 % (31-73); PLATELET COUNT 190 x10^3/uL (140-400); RED BLOOD COUNT 3.68 x10^6/uL (3.50-5.40); RED CELL DISTRIBUTION WIDTH 14.2 % (11.5-14.5); WHITE BLOOD COUNT 7.8 x10^3/uL (4.0-11.0)
[2018-03-20 06:34] LABS: CALCIUM 7.9 mg/dL (8.5-10.1); CREATININE 0.4 mg/dL (0.6-1.0); GFR 180.6
[2018-03-20 06:38] LABS: POTASSIUM 2.9 mmol/L (3.5-5.1)
[2018-03-20] MEDS ORDERED: POTASSIUM CHLORIDE 20 MEQ TABLET.ER. PO ONE (07:15)
[2018-03-20 07:25] LABS: MAGNESIUM 2.2 mg/dL (1.8-2.4); PHOSPHORUS 1.5 mg/dL (2.6-4.7)
[2018-03-20] MEDS ORDERED: POTASSIUM CL 40MEQ IN 0.9%NACL 1,000 ML IV ONE (07:30)
[2018-03-20 08:00] VITALS: BP 141/76
[2018-03-20] MEDS: LACTOBACILLUS RHAMNOSUS GG 1 CAPSULE. PO SCH ×2 (08:23→20:46)
[2018-03-20] MEDS: INSULIN LISPRO 300 UNITS/3 ML INSULN.PEN. SQ SCH ×7 (08:31→21:29)
--- NOTE | 2018-03-20 09:45 | PDOC ---
Subjective: Subjective: "A little better" but says she doesn't want anything more than clear liquids. Abd pain better but still there - diffuse, "sore." No n/v. Loose stools (not unusual for her). Objective: Objective: Tmax 99.6. Got morphine this morning. Vital Signs: Vital Signs Date Time Temp Pulse Resp B/P (MAP) Pulse Ox O2 Delivery O2 Flow Rate FiO2 03/20/18 08:23 18 96 Room Air 03/20/18 08:00 98.1 104 141/76 (97) 98.1 Labs: Laboratory Tests Test 03/19/18 11:36 03/19/18 16:43 03/19/18 21:12 03/20/18 05:45 Glucose (Fingerstick) 212 mg/dL 174 mg/dL 153 mg/dL White Blood Count 7.8 x10^3/uL Red Blood Count 3.68 x10^6/uL Hemoglobin 10.8 g/dL Hematocrit 31.8 % Mean Corpuscular Volume 86 fL Mean Corpuscular Hemoglobin 29 pg Mean Corpuscular Hemoglobin Concent 34 g/dL Red Cell Distribution Width 14.2 % Platelet Count 190 x10^3/uL Neutrophils (%) (Auto) 78 % Lymphocytes (%) (Auto) 16 % Monocytes (%) (Auto) 4 % Eosinophils (%) (Auto) 1 % Basophils (%) (Auto) 1 % Neutrophils # (Auto) 6.1 x10^3uL Lymphocytes # (Auto) 1.2 x10^3/uL Monocytes # (Auto) 0.3 x10^3/uL Eosinophils # (Auto) 0.1 x10^3/uL Basophils # (Auto) 0.0 x10^3/uL Sodium Level 130 mmol/L Potassium Level 2.9 mmol/L Chloride Level 96 mmol/L Carbon Dioxide Level 18 mmol/L Anion Gap 16 Blood Urea Nitrogen 2 mg/dL Creatinine 0.4 mg/dL Estimated GFR (Cockcroft-Gault) 180.6 Glucose Level 239 mg/dL Calcium Level 7.9 mg/dL Phosphorus Level 1.5 mg/dL Magnesium Level 2.2 mg/dL Lipase 1131 U/L Test 03/20/18 07:45 Glucose (Fingerstick) 217 mg/dL URINE CULTURE Final Final report URINE CULTURE RES 1 Final Comment Mixed urogenital eliecer PE: GEN: NAD LUNGS: CTAB HEART: tachycardic ABD: a bit firmer today though less discomfort, BS present but quiet NEURO/PSYCH: A & O 3 A/P: Recurrent pancreatitis 2/2 hypertriglyceridemia Hypokalemia, hyponatremia - defer to primary ?UTI - culture "mixed urogenital eliecer," still on IV atbx - defer to primary -- Slow to improve - not much appetite, ongoing abd pain - has required extended hospital stay in the past. WBC normal, a little tachycardic. Reviewed w/ Dr. Rucker - if not better tomorrow, would repeat CT. Do not advance beyond clear liquids at this point. Defer lipid treatment to primary. MONICA HECK Mar 20, 2018 09:45
[2018-03-20] MEDS: IV 1/2 NORMAL SALINE 1,000 ML IV SCH (10:00)
--- NOTE | 2018-03-20 11:42 | PDOC ---
PROGRESS NOTES Chief Complaint Chief Complaint Acute recurrent pancreatitis H/o pancreatitis with HLD DKA, anion gap closed, resolved T2DM on insulin Htn urgency Elevated transaminitis H/o cholecystectomy HLD Hypophosphatemia Hypokalemia Possible UTI iv pain control, still having mod pain replace lytes gi following accuchecks History of Present Illness History of Present Illness Pt seen and examined in ICU Laying in bed, calm, cooperative Discussed with RN Vitals Vitals Vital Signs Date Time Temp Pulse Resp B/P (MAP) Pulse Ox O2 Delivery O2 Flow Rate FiO2 03/20/18 08:23 18 96 Room Air 03/20/18 08:00 98.1 104 141/76 (97) 98.1 Physical Exam General: Alert, Oriented X3, Cooperative, mild distress Heart: Regular rate, Normal S1, Normal S2 Lungs: Clear Abdomen: Normal bowel sounds, Soft, Other (mild epigastric tenderness) Extremities: No clubbing, No cyanosis, No edema Skin: No rashes, No breakdown Labs LABS Laboratory Tests Test 03/19/18 16:43 03/19/18 21:12 03/20/18 05:45 03/20/18 07:45 Glucose (Fingerstick) 174 mg/dL (70-99) 153 mg/dL (70-99) 217 mg/dL (70-99) White Blood Count 7.8 x10^3/uL (4.0-11.0) Red Blood Count 3.68 x10^6/uL (3.50-5.40) Hemoglobin 10.8 g/dL (12.0-15.5) Hematocrit 31.8 % (36.0-47.0) Mean Corpuscular Volume 86 fL (79-100) Mean Corpuscular Hemoglobin 29 pg (25-35) Mean Corpuscular Hemoglobin Concent 34 g/dL (31-37) Red Cell Distribution Width 14.2 % (11.5-14.5) Platelet Count 190 x10^3/uL (140-400) Neutrophils (%) (Auto) 78 % (31-73) Lymphocytes (%) (Auto) 16 % (24-48) Monocytes (%) (Auto) 4 % (0-9) Eosinophils (%) (Auto) 1 % (0-3) Basophils (%) (Auto) 1 % (0-3) Neutrophils # (Auto) 6.1 x10^3uL (1.8-7.7) Lymphocytes # (Auto) 1.2 x10^3/uL (1.0-4.8) Monocytes # (Auto) 0.3 x10^3/uL (0.0-1.1) Eosinophils # (Auto) 0.1 x10^3/uL (0.0-0.7) Basophils # (Auto) 0.0 x10^3/uL (0.0-0.2) Sodium Level 130 mmol/L (136-145) Potassium Level 2.9 mmol/L (3.5-5.1) Chloride Level 96 mmol/L (98-107) Carbon Dioxide Level 18 mmol/L (21-32) Anion Gap 16 (6-14) Blood Urea Nitrogen 2 mg/dL (7-20) Creatinine 0.4 mg/dL (0.6-1.0) Estimated GFR (Cockcroft-Gault) 180.6 Glucose Level 239 mg/dL (70-99) Calcium Level 7.9 mg/dL (8.5-10.1) Phosphorus Level 1.5 mg/dL (2.6-4.7) Magnesium Level 2.2 mg/dL (1.8-2.4) Lipase 1131 U/L (73-393) Test 03/20/18 10:56 Glucose (Fingerstick) 185 mg/dL (70-99) Assessment and Plan Assessmemt and Plan Problems Medical Problems: (1) Acute pancreatitis Status: Acute (2) DKA (diabetic ketoacidoses) Status: Acute Comment Review of Relevant I have reviewed the following items destiny (where applicable) has been applied. Labs Laboratory Tests Test 03/18/18 11:52 03/18/18 12:30 03/18/18 17:35 03/18/18 21:55 Glucose (Fingerstick) 248 mg/dL (70-99) 259 mg/dL (70-99) 225 mg/dL (70-99) Sodium Level 140 mmol/L (136-145) Potassium Level 3.8 mmol/L (3.5-5.1) Chloride Level 104 mmol/L (98-107) Carbon Dioxide Level 21 mmol/L (21-32) Anion Gap 15 (6-14) Blood Urea Nitrogen 5 mg/dL (7-20) Creatinine 0.5 mg/dL (0.6-1.0) Estimated GFR (Cockcroft-Gault) 139.6 Glucose Level 274 mg/dL (70-99) Calcium Level 7.2 mg/dL (8.5-10.1) Lipase 3815 U/L (73-393) Test 03/19/18 05:05 03/19/18 07:35 03/19/18 11:36 03/19/18 16:43 White Blood Count 6.5 x10^3/uL (4.0-11.0) Red Blood Count 3.88 x10^6/uL (3.50-5.40) Hemoglobin 11.6 g/dL (12.0-15.5) Hematocrit 33.5 % (36.0-47.0) Mean Corpuscular Volume 86 fL (79-100) Mean Corpuscular Hemoglobin 30 pg (25-35) Mean Corpuscular Hemoglobin Concent 35 g/dL (31-37) Red Cell Distribution Width 14.2 % (11.5-14.5) Platelet Count 175 x10^3/uL (140-400) Neutrophils (%) (Auto) 83 % (31-73) Lymphocytes (%) (Auto) 9 % (24-48) Monocytes (%) (Auto) 7 % (0-9) Eosinophils (%) (Auto) 1 % (0-3) Basophils (%) (Auto) 1 % (0-3) Neutrophils # (Auto) 5.4 x10^3uL (1.8-7.7) Lymphocytes # (Auto) 0.6 x10^3/uL (1.0-4.8) Monocytes # (Auto) 0.4 x10^3/uL (0.0-1.1) Eosinophils # (Auto) 0.1 x10^3/uL (0.0-0.7) Basophils # (Auto) 0.1 x10^3/uL (0.0-0.2) Sodium Level 135 mmol/L (136-145) Potassium Level 3.1 mmol/L (3.5-5.1) Chloride Level 98 mmol/L (98-107) Carbon Dioxide Level 22 mmol/L (21-32) Anion Gap 15 (6-14) Blood Urea Nitrogen 3 mg/dL (7-20) Creatinine 0.5 mg/dL (0.6-1.0) Estimated GFR (Cockcroft-Gault) 139.6 Glucose Level 223 mg/dL (70-99) Calcium Level 7.4 mg/dL (8.5-10.1) Lipase 3138 U/L (73-393) Glucose (Fingerstick) 201 mg/dL (70-99) 212 mg/dL (70-99) 174 mg/dL (70-99) Test 03/19/18 21:12 03/20/18 05:45 03/20/18 07:45 03/20/18 10:56 Glucose (Fingerstick) 153 mg/dL (70-99) 217 mg/dL (70-99) 185 mg/dL (70-99) White Blood Count 7.8 x10^3/uL (4.0-11.0) Red Blood Count 3.68 x10^6/uL (3.50-5.40) Hemoglobin 10.8 g/dL (12.0-15.5) Hematocrit 31.8 % (36.0-47.0) Mean Corpuscular Volume 86 fL (79-100) Mean Corpuscular Hemoglobin 29 pg (25-35) Mean Corpuscular Hemoglobin Concent 34 g/dL (31-37) Red Cell Distribution Width 14.2 % (11.5-14.5) Platelet Count 190 x10^3/uL (140-400) Neutrophils (%) (Auto) 78 % (31-73) Lymphocytes (%) (Auto) 16 % (24-48) Monocytes (%) (Auto) 4 % (0-9) Eosinophils (%) (Auto) 1 % (0-3) Basophils (%) (Auto) 1 % (0-3) Neutrophils # (Auto) 6.1 x10^3uL (1.8-7.7) Lymphocytes # (Auto) 1.2 x10^3/uL (1.0-4.8) Monocytes # (Auto) 0.3 x10^3/uL (0.0-1.1) Eosinophils # (Auto) 0.1 x10^3/uL (0.0-0.7) Basophils # (Auto) 0.0 x10^3/uL (0.0-0.2) Sodium Level 130 mmol/L (136-145) Potassium Level 2.9 mmol/L (3.5-5.1) Chloride Level 96 mmol/L (98-107) Carbon Dioxide Level 18 mmol/L (21-32) Anion Gap 16 (6-14) Blood Urea Nitrogen 2 mg/dL (7-20) Creatinine 0.4 mg/dL (0.6-1.0) Estimated GFR (Cockcroft-Gault) 180.6 Glucose Level 239 mg/dL (70-99) Calcium Level 7.9 mg/dL (8.5-10.1) Phosphorus Level 1.5 mg/dL (2.6-4.7) Magnesium Level 2.2 mg/dL (1.8-2.4) Lipase 1131 U/L (73-393) Laboratory Tests Test 03/19/18 16:43 03/19/18 21:12 03/20/18 05:45 03/20/18 07:45 Glucose (Fingerstick) 174 mg/dL (70-99) 153 mg/dL (70-99) 217 mg/dL (70-99) White Blood Count 7.8 x10^3/uL (4.0-11.0) Red Blood Count 3.68 x10^6/uL (3.50-5.40) Hemoglobin 10.8 g/dL (12.0-15.5) Hematocrit 31.8 % (36.0-47.0) Mean Corpuscular Volume 86 fL (79-100) Mean Corpuscular Hemoglobin 29 pg (25-35) Mean Corpuscular Hemoglobin Concent 34 g/dL (31-37) Red Cell Distribution Width 14.2 % (11.5-14.5) Platelet Count 190 x10^3/uL (140-400) Neutrophils (%) (Auto) 78 % (31-73) Lymphocytes (%) (Auto) 16 % (24-48) Monocytes (%) (Auto) 4 % (0-9) Eosinophils (%) (Auto) 1 % (0-3) Basophils (%) (Auto) 1 % (0-3) Neutrophils # (Auto) 6.1 x10^3uL (1.8-7.7) Lymphocytes # (Auto) 1.2 x10^3/uL (1.0-4.8) Monocytes # (Auto) 0.3 x10^3/uL (0.0-1.1) Eosinophils # (Auto) 0.1 x10^3/uL (0.0-0.7) Basophils # (Auto) 0.0 x10^3/uL (0.0-0.2) Sodium Level 130 mmol/L (136-145) Potassium Level 2.9 mmol/L (3.5-5.1) Chloride Level 96 mmol/L (98-107) Carbon Dioxide Level 18 mmol/L (21-32) Anion Gap 16 (6-14) Blood Urea Nitrogen 2 mg/dL (7-20) Creatinine 0.4 mg/dL (0.6-1.0) Estimated GFR (Cockcroft-Gault) 180.6 Glucose Level 239 mg/dL (70-99) Calcium Level 7.9 mg/dL (8.5-10.1) Phosphorus Level 1.5 mg/dL (2.6-4.7) Magnesium Level 2.2 mg/dL (1.8-2.4) Lipase 1131 U/L (73-393) Test 03/20/18 10:56 Glucose (Fingerstick) 185 mg/dL (70-99) Microbiology 03/17/18 Urine Culture - Final, Complete 03/17/18 Urine Culture Result 1 (VELMA) - Final, Complete Medications Current Medications Sodium Chloride 1,000 ml @ 1,000 mls/hr 1X ONCE IV Last administered on 03/17at 08:41; Start 03/17/18 at 08:15; Stop 03/17/18 at 09:14; Status DC Ondansetron HCl (Zofran) 4 mg 1X ONCE IV Last administered on 03/17/18at 08:40 ; Start 03/17/18 at 08:15; Stop 03/17/18 at 08:16; Status DC Morphine Sulfate (Morphine Sulfate) 5 mg 1X ONCE IV Last administered on 03/17at 08:40; Start 03/17/18 at 08:15; Stop 03/17/18 at 08:16; Status DC Iohexol (Omnipaque 300 Mg/ml) 75 ml 1X ONCE IV Last administered on at 10:19; Start 03/17/18 at 09:00; Stop 03/17/18 at 09:01; Status DC Info (CONTRAST GIVEN -- Rx MONITORING) 1 each PRN DAILY PRN MC SEE COMMENTS; Start 03/17/18 at 09:00; Stop 03/19/18 at 08:59; Status DC Morphine Sulfate (Morphine Sulfate) 5 mg 1X ONCE IV Last administered on 03/17at 09:25; Start 03/17/18 at 09:15; Stop 03/17/18 at 09:16; Status DC Prochlorperazine Edisylate (Compazine) 10 mg 1X ONCE IV Last administered on 03/17/18at 09:25; Start 03/17/18 at 09:15; Stop 03/17/18 at 09:16; Status DC Sodium Chloride 1,000 ml @ 1,000 mls/hr Q1H IV ; Start 03/17/18 at 10:58; Stop 03/17/18 at 11:57; Status DC Insulin Human Regular 150 unit/ Sodium Chloride 151.5 ml @ 0 mls/hr CONT PRN PRN IV PER PROTOCOL; Start 03/17/18 at 11:00; Status Cancel Insulin Human Regular 150 ml @ 0 mls/hr CONT PRN PRN IV PER PROTOCOL Last administered on 03/17/18at 15:23; Start 03/17/18 at 11:15; Stop 03/17/18 at 13 :01; Status DC Insulin Human Regular 150 unit/ Sodium Chloride 151.5 ml @ 0 mls/hr CONT PRN PRN IV PER PROTOCOL Last administered on 03/17/18at 18:34; Start 03/17/18 at 18 :00; Stop 03/18/18 at 03:41; Status DC Ondansetron HCl (Zofran) 4 mg PRN Q8HRS PRN IV NAUSEA/VOMITING Last administered on 03/17/18at 14:46; Start 03/17/18 at 11:45; Stop 03/18/18 at 11 :44; Status DC Morphine Sulfate (Morphine Sulfate) 4 mg PRN Q2HR PRN IV PAIN Last administered on 03/18/18at 06:24; Start 03/17/18 at 11:45; Stop 03/18/18 at 11 :44; Status DC Sodium Chloride 1,000 ml @ 125 mls/hr 1X ONCE IV Last administered on at 15:21; Start 03/17/18 at 11:45; Stop 03/17/18 at 19:44; Status DC Famotidine (Pepcid Vial) 20 mg QHS IVP Last administered on 03/19/18at 20:59; Start 03/17/18 at 21:00 Enoxaparin Sodium (Lovenox 40mg Syringe) 40 mg Q24H SQ Last administered on 03/19/18at 16:45; Start 03/17/18 at 16:00 Acetaminophen (Tylenol) 650 mg PRN Q6HRS PRN PO FEVER Last administered on 23:37; Start 03/17/18 at 14:30 Ondansetron HCl (Zofran) 4 mg PRN Q6HRS PRN IV NAUSEA/VOMITING Last administered on 03/19/18 12:15; Start 03/17/18 at 14:30 Morphine Sulfate (Morphine Sulfate) 2 mg PRN Q2HR PRN IV MODERATE TO SEVERE PAIN Last administered on 03/20/18 08:23; Start 03/17/18 at 14:30 Tramadol HCl (Ultram) 50 mg PRN Q6HRS PRN PO MILD TO MODERATE PAIN Last administered on 03/20/18 08:22; Start 03/17/18 at 14:30 Docusate Sodium (Colace) 100 mg PRN DAILY PRN PO CONSTIPATION Last administered on 03/18/18at 18:05; Start 03/17/18 at 14:30 Labetalol HCl (Normodyne Iv Push) 20 mg PRN Q2HR PRN IVP HYPERTENSION, SEE COMMENTS; Start 03/17/18 at 14:30 Ceftriaxone Sodium 1 gm/ Dextrose 50 ml @ 100 mls/hr Q24H IV ; Start 03/17/18 at 14:30; Status UNV Potassium Phosphate 10 mmol/ Dextrose 253.3333 ml @ 126.... Q2H IV Last administered on 03/17/18at 17:30; Start 03/17/18 at 15:30; Stop 03/17/18 at 19 :29; Status DC Ceftriaxone Sodium (Rocephin) 1 gm Q24H IVP Last administered on 03/19/18at 14: 40; Start 03/17/18 at 15:00 Influenza Virus Vaccine (Afluria Trivalent [id number] Syringe) 0.5 ml ONCE ONCE VAX IM Last administered on 03/18/18at 08:18; Start 03/17/18 at 17:00; Stop 03/17/18 at 17:01; Status DC Sodium Chloride 1,000 ml @ 500 mls/hr Q2H IV ; Start 03/17/18 at 19:10; Stop 03/17/18 at 21:09; Status Cancel Magnesium Sulfate/ Dextrose 100 ml @ 25 mls/hr PRN DAILY PRN IV MAG < 1.8; Start 03/18/18 at 09:00; Stop 03/18/18 at 09:00; Status DC Sodium Phosphate 40 mmol/Sodium Chloride 513.3333 ml @ 83.3 mls/hr 1X PRN PRN IV SEE COMMENTS; Start 03/17/18 at 19:15; Stop 03/18/18 at 03:41; Status DC Sodium Phosphate 20 mmol/Dextrose 256.6667 ml @ 62.5 mls/hr 1X PRN PRN IV SEE COMMENTS Last administered on 03/17/18at 21:41; Start 03/17/18 at 19:15; Stop 03/18/18 at 03:41; Status DC Sodium Phosphate 10 mmol/Dextrose 253.3333 ml @ 62.5 mls/hr 1X PRN PRN IV SEE COMMENTS; Start 03/17/18 at 19:15; Stop 03/18/18 at 03:41; Status DC Sodium Chloride 1,000 ml @ 250 mls/hr Q4H IV Last administered on 03/17/18at 19:29; Start 03/17/18 at 19:18; Stop 03/17/18 at 21:33; Status DC Potassium Chloride/Dextrose/ Sod Cl 1,000 ml @ 250 mls/hr Q4H IV Last administered on 03/17/18at 21:35; Start 03/17/18 at 22:00; Stop 03/18/18 at 01 :59; Status DC Sodium Chloride 1,000 ml @ 250 mls/hr Q4H IV Last administered on 03/18/18at 01:40; Start 03/18/18 at 01:40; Stop 03/18/18 at 03:38; Status DC Potassium Chloride 40 meq/ Sodium Chloride 1,020 ml @ 250 mls/hr Q4H5M IV Last administered on 03/18/18at 03:54; Start 03/18/18 at 04:00; Stop 03/18/18 at 08:04; Status DC Sodium Chloride 1,000 ml @ 100 mls/hr Q10H IV Last administered on 03/19/18at 20:58; Start 03/18/18 at 08:00 Insulin Human Lispro (HumaLOG) 0-7 UNITS QIDACHS SQ ; Start 03/18/18 at 07:30; Stop 03/18/18 at 07:30; Status DC Dextrose (Dextrose 50%-Water Syringe) 12.5 gm PRN Q15MIN PRN IV SEE COMMENTS; Start 03/18/18 at 03:45 Insulin Human Lispro (HumaLOG) 0-7 UNITS Q6HRS SQ Last administered on at 18:11; Start 03/18/18 at 07:30; Stop 03/18/18 at 20:03; Status DC Insulin Glargine (Lantus) 30 units 1X ONCE SQ Last administered on 03/18/18at 22:02; Start 03/18/18 at 20:00; Stop 03/18/18 at 20:06; Status DC Insulin Human Lispro (HumaLOG) 10 units TIDAC SQ Last administered on at 08:32; Start 03/19/18 at 07:30 Insulin Human Lispro (HumaLOG) 0-9 UNITS TIDACHC SQ Last administered on at 08:31; Start 03/18/18 at 21:00 Lactobacillus Rhamnosus (Culturelle) 1 cap BID PO Last administered on at 08:23; Start 03/19/18 at 21:00 Potassium Chloride (Klor-Con) 40 meq 1X ONCE PO Last administered on at 08:22; Start 03/20/18 at 07:15; Stop 03/20/18 at 07:16; Status DC Potassium Chloride/Sodium Chloride 1,000 ml @ 75 mls/hr 1X ONCE IV Last administered on 03/20/18at 08:38; Start 03/20/18 at 07:30; Stop 03/20/18 at 20:49 Active Scripts Active Reported Tricor (Fenofibrate Nanocrystallized) 145 Mg Tablet 145 Mg PO DAILY Novolog Flexpen (Insulin Aspart) 100 Unit/1 Ml Insuln.pen 35 Unit SQ BIDAC Humulin N Kwikpen (Nph, Human Insulin Isophane) 100 Unit/1 Ml Insuln.pen 35 Unit SQ BID Vitals/I & O Vital Sign - Last 24 Hours 03/19/18 03/19/18 03/19/18 03/19/18 12:00 12:15 16:00 16:52 Temp 97.9 97.7 97.9 97.7 Pulse 108 108 Resp 20 24 B/P (MAP) 136/74 (94) 130/68 (88) Pulse Ox 92 92 O2 Delivery Room Air Room Air Room Air 03/19/18 03/19/18 03/19/18 03/19/18 18:43 19:00 19:48 21:01 Temp 99.0 99.0 Pulse 108 Resp 20 2 B/P (MAP) 141/75 (97) Pulse Ox 91 92 O2 Delivery Room Air Room Air Room Air 03/19/18 03/20/18 03/20/18 03/20/18 23:00 00:57 02:05 03:00 Temp 99.4 99.6 99.4 99.6 Pulse 105 102 Resp 20 18 18 18 B/P (MAP) 137/75 (95) 135/75 (95) Pulse Ox 91 91 91 91 O2 Delivery Room Air Room Air 03/20/18 03/20/18 03/20/18 03/20/18 03:43 04:15 08:00 08:22 Temp 98.1 98.1 Pulse 104 Resp 18 18 20 18 B/P (MAP) 141/76 (97) Pulse Ox 91 91 96 96 O2 Delivery Room Air Room Air Room Air Room Air 03/20/18 08:23 Resp 18 Pulse Ox 96 O2 Delivery Room Air Intake and Output 03/19/18 03/19/18 03/20/18 15:00 23:00 07:00 Intake Total 360 ml Balance 360 ml SHIV ROJAS MD Mar 20, 2018 11:42
[2018-03-20 12:00] VITALS: BP 149/79
[2018-03-20] MEDS: cefTRIAXone IV Push 1 GM VIAL. IVP SCH (14:57)
[2018-03-20] MEDS ORDERED: SODIUM PHOSPHATE 15 MMOL in IV DEXTROSE 5% 250 ML IV PRN (15:00)
[2018-03-20] MEDS ORDERED: SODIUM PHOSPHATE 30 MMOL in IV DEXTROSE 5% 250 ML IV PRN (15:00)
[2018-03-20 16:00] VITALS: BP 137/77
[2018-03-20] MEDS ORDERED: SODIUM PHOSPHATE 30 MMOL in IV DEXTROSE 5% 250 ML IV ONE (16:00)
[2018-03-20] MEDS: ENOXAPARIN 40 MG/0.4 ML SYRINGE. SQ SCH (17:29)
[2018-03-20 20:04] VITALS: BP 144/75
[2018-03-20] MEDS: IV NORMAL SALINE 1000ML BAG 1,000 ML IV SCH (20:46)
[2018-03-20] MEDS: FAMOTIDINE 20 MG/2 ML VIAL IVP SCH (20:47)
[2018-03-20 22:51] VITALS: BP 167/84
[2018-03-21] MEDS: MORPHINE SULFATE 2 MG/ML VIAL. IV PRN ×6 (00:12→21:31)
[2018-03-21] MEDS: traMADol 50 MG TABLET PO PRN ×3 (02:37→17:11)
[2018-03-21 03:02] VITALS: BP 143/77
[2018-03-21] MEDS: IV NORMAL SALINE 1000ML BAG 1,000 ML IV SCH ×2 (06:06→17:12)
[2018-03-21 06:36] LABS: BASO % 1 % (0-3); EOS # 0.2 x10^3/uL (0.0-0.7); EOS % 2 % (0-3); HEMATOCRIT 34.1 % (36.0-47.0); HEMOGLOBIN 11.8 g/dL (12.0-15.5); LYMPH # 1.4 x10^3/uL (1.0-4.8); LYMPH % 13 % (24-48); MEAN CORPUSCULAR HEMOGLOBIN 30 pg (25-35); MEAN CORPUSCULAR HGB CONC 35 g/dL (31-37); MEAN CORPUSCULAR VOLUME 86 fL (79-100); MONO # 0.6 x10^3/uL (0.0-1.1); MONO % 5 % (0-9); NEUT # 8.6 x10^3uL (1.8-7.7); NEUT % 80 % (31-73); PLATELET COUNT 261 x10^3/uL (140-400); RED BLOOD COUNT 3.98 x10^6/uL (3.50-5.40); RED CELL DISTRIBUTION WIDTH 14.6 % (11.5-14.5); WHITE BLOOD COUNT 10.8 x10^3/uL (4.0-11.0)
[2018-03-21 06:52] LABS: CALCIUM 8.5 mg/dL (8.5-10.1); CREATININE 0.4 mg/dL (0.6-1.0); GFR 180.6; POTASSIUM 3.1 mmol/L (3.5-5.1)
[2018-03-21 07:00] VITALS: BP 149/82
--- NOTE | 2018-03-21 08:31 | PDOC ---
PROGRESS NOTES Chief Complaint Chief Complaint Acute recurrent pancreatitis H/o pancreatitis with HLD DKA, anion gap closed, resolved T2DM on insulin Htn urgency Elevated transaminitis H/o cholecystectomy HLD Hypophosphatemia Hypokalemia on replacement Possible UTI pt reports mild improvement today iv pain control, still having mod pain replace lytes, k gi following ct delayed due to improved symptoms accuchecks History of Present Illness History of Present Illness Pt seen and examined in ICU Laying in bed, calm, cooperative Discussed with RN Vitals Vitals Vital Signs Date Time Temp Pulse Resp B/P (MAP) Pulse Ox O2 Delivery O2 Flow Rate FiO2 03/21/18 06:44 18 97 Room Air 03/21/18 03:02 98.4 102 143/77 (99) 98.4 Physical Exam General: Alert, Oriented X3, Cooperative, mild distress Heart: Regular rate, Normal S1, Normal S2 Lungs: Clear Abdomen: Normal bowel sounds, Soft, Other (mild epigastric tenderness) Extremities: No clubbing, No cyanosis, No edema Skin: No rashes, No breakdown Labs LABS Laboratory Tests Test 03/20/18 10:56 03/20/18 16:21 03/20/18 21:23 03/21/18 05:10 Glucose (Fingerstick) 185 mg/dL (70-99) 239 mg/dL (70-99) 220 mg/dL (70-99) White Blood Count 10.8 x10^3/uL (4.0-11.0) Red Blood Count 3.98 x10^6/uL (3.50-5.40) Hemoglobin 11.8 g/dL (12.0-15.5) Hematocrit 34.1 % (36.0-47.0) Mean Corpuscular Volume 86 fL (79-100) Mean Corpuscular Hemoglobin 30 pg (25-35) Mean Corpuscular Hemoglobin Concent 35 g/dL (31-37) Red Cell Distribution Width 14.6 % (11.5-14.5) Platelet Count 261 x10^3/uL (140-400) Neutrophils (%) (Auto) 80 % (31-73) Lymphocytes (%) (Auto) 13 % (24-48) Monocytes (%) (Auto) 5 % (0-9) Eosinophils (%) (Auto) 2 % (0-3) Basophils (%) (Auto) 1 % (0-3) Neutrophils # (Auto) 8.6 x10^3uL (1.8-7.7) Lymphocytes # (Auto) 1.4 x10^3/uL (1.0-4.8) Monocytes # (Auto) 0.6 x10^3/uL (0.0-1.1) Eosinophils # (Auto) 0.2 x10^3/uL (0.0-0.7) Basophils # (Auto) 0.0 x10^3/uL (0.0-0.2) Test 03/21/18 05:15 Sodium Level 134 mmol/L (136-145) Potassium Level 3.1 mmol/L (3.5-5.1) Chloride Level 98 mmol/L (98-107) Carbon Dioxide Level 18 mmol/L (21-32) Anion Gap 18 (6-14) Blood Urea Nitrogen 2 mg/dL (7-20) Creatinine 0.4 mg/dL (0.6-1.0) Estimated GFR (Cockcroft-Gault) 180.6 Glucose Level 233 mg/dL (70-99) Calcium Level 8.5 mg/dL (8.5-10.1) Assessment and Plan Assessmemt and Plan Problems Medical Problems: (1) Acute pancreatitis Status: Acute (2) DKA (diabetic ketoacidoses) Status: Acute Comment Review of Relevant I have reviewed the following items destiny (where applicable) has been applied. Labs Laboratory Tests Test 03/19/18 11:36 03/19/18 16:43 03/19/18 21:12 03/20/18 05:45 Glucose (Fingerstick) 212 mg/dL (70-99) 174 mg/dL (70-99) 153 mg/dL (70-99) White Blood Count 7.8 x10^3/uL (4.0-11.0) Red Blood Count 3.68 x10^6/uL (3.50-5.40) Hemoglobin 10.8 g/dL (12.0-15.5) Hematocrit 31.8 % (36.0-47.0) Mean Corpuscular Volume 86 fL (79-100) Mean Corpuscular Hemoglobin 29 pg (25-35) Mean Corpuscular Hemoglobin Concent 34 g/dL (31-37) Red Cell Distribution Width 14.2 % (11.5-14.5) Platelet Count 190 x10^3/uL (140-400) Neutrophils (%) (Auto) 78 % (31-73) Lymphocytes (%) (Auto) 16 % (24-48) Monocytes (%) (Auto) 4 % (0-9) Eosinophils (%) (Auto) 1 % (0-3) Basophils (%) (Auto) 1 % (0-3) Neutrophils # (Auto) 6.1 x10^3uL (1.8-7.7) Lymphocytes # (Auto) 1.2 x10^3/uL (1.0-4.8) Monocytes # (Auto) 0.3 x10^3/uL (0.0-1.1) Eosinophils # (Auto) 0.1 x10^3/uL (0.0-0.7) Basophils # (Auto) 0.0 x10^3/uL (0.0-0.2) Sodium Level 130 mmol/L (136-145) Potassium Level 2.9 mmol/L (3.5-5.1) Chloride Level 96 mmol/L (98-107) Carbon Dioxide Level 18 mmol/L (21-32) Anion Gap 16 (6-14) Blood Urea Nitrogen 2 mg/dL (7-20) Creatinine 0.4 mg/dL (0.6-1.0) Estimated GFR (Cockcroft-Gault) 180.6 Glucose Level 239 mg/dL (70-99) Calcium Level 7.9 mg/dL (8.5-10.1) Phosphorus Level 1.5 mg/dL (2.6-4.7) Magnesium Level 2.2 mg/dL (1.8-2.4) Lipase 1131 U/L (73-393) Test 03/20/18 07:45 03/20/18 10:56 03/20/18 16:21 03/20/18 21:23 Glucose (Fingerstick) 217 mg/dL (70-99) 185 mg/dL (70-99) 239 mg/dL (70-99) 220 mg/dL (70-99) Test 03/21/18 05:10 03/21/18 05:15 White Blood Count 10.8 x10^3/uL (4.0-11.0) Red Blood Count 3.98 x10^6/uL (3.50-5.40) Hemoglobin 11.8 g/dL (12.0-15.5) Hematocrit 34.1 % (36.0-47.0) Mean Corpuscular Volume 86 fL (79-100) Mean Corpuscular Hemoglobin 30 pg (25-35) Mean Corpuscular Hemoglobin Concent 35 g/dL (31-37) Red Cell Distribution Width 14.6 % (11.5-14.5) Platelet Count 261 x10^3/uL (140-400) Neutrophils (%) (Auto) 80 % (31-73) Lymphocytes (%) (Auto) 13 % (24-48) Monocytes (%) (Auto) 5 % (0-9) Eosinophils (%) (Auto) 2 % (0-3) Basophils (%) (Auto) 1 % (0-3) Neutrophils # (Auto) 8.6 x10^3uL (1.8-7.7) Lymphocytes # (Auto) 1.4 x10^3/uL (1.0-4.8) Monocytes # (Auto) 0.6 x10^3/uL (0.0-1.1) Eosinophils # (Auto) 0.2 x10^3/uL (0.0-0.7) Basophils # (Auto) 0.0 x10^3/uL (0.0-0.2) Sodium Level 134 mmol/L (136-145) Potassium Level 3.1 mmol/L (3.5-5.1) Chloride Level 98 mmol/L (98-107) Carbon Dioxide Level 18 mmol/L (21-32) Anion Gap 18 (6-14) Blood Urea Nitrogen 2 mg/dL (7-20) Creatinine 0.4 mg/dL (0.6-1.0) Estimated GFR (Cockcroft-Gault) 180.6 Glucose Level 233 mg/dL (70-99) Calcium Level 8.5 mg/dL (8.5-10.1) Laboratory Tests Test 03/20/18 10:56 03/20/18 16:21 03/20/18 21:23 03/21/18 05:10 Glucose (Fingerstick) 185 mg/dL (70-99) 239 mg/dL (70-99) 220 mg/dL (70-99) White Blood Count 10.8 x10^3/uL (4.0-11.0) Red Blood Count 3.98 x10^6/uL (3.50-5.40) Hemoglobin 11.8 g/dL (12.0-15.5) Hematocrit 34.1 % (36.0-47.0) Mean Corpuscular Volume 86 fL (79-100) Mean Corpuscular Hemoglobin 30 pg (25-35) Mean Corpuscular Hemoglobin Concent 35 g/dL (31-37) Red Cell Distribution Width 14.6 % (11.5-14.5) Platelet Count 261 x10^3/uL (140-400) Neutrophils (%) (Auto) 80 % (31-73) Lymphocytes (%) (Auto) 13 % (24-48) Monocytes (%) (Auto) 5 % (0-9) Eosinophils (%) (Auto) 2 % (0-3) Basophils (%) (Auto) 1 % (0-3) Neutrophils # (Auto) 8.6 x10^3uL (1.8-7.7) Lymphocytes # (Auto) 1.4 x10^3/uL (1.0-4.8) Monocytes # (Auto) 0.6 x10^3/uL (0.0-1.1) Eosinophils # (Auto) 0.2 x10^3/uL (0.0-0.7) Basophils # (Auto) 0.0 x10^3/uL (0.0-0.2) Test 03/21/18 05:15 Sodium Level 134 mmol/L (136-145) Potassium Level 3.1 mmol/L (3.5-5.1) Chloride Level 98 mmol/L (98-107) Carbon Dioxide Level 18 mmol/L (21-32) Anion Gap 18 (6-14) Blood Urea Nitrogen 2 mg/dL (7-20) Creatinine 0.4 mg/dL (0.6-1.0) Estimated GFR (Cockcroft-Gault) 180.6 Glucose Level 233 mg/dL (70-99) Calcium Level 8.5 mg/dL (8.5-10.1) Microbiology 03/17/18 Urine Culture - Final, Complete 03/17/18 Urine Culture Result 1 (VELMA) - Final, Complete Medications Current Medications Sodium Chloride 1,000 ml @ 1,000 mls/hr 1X ONCE IV Last administered on 03/17at 08:41; Start 03/17/18 at 08:15; Stop 03/17/18 at 09:14; Status DC Ondansetron HCl (Zofran) 4 mg 1X ONCE IV Last administered on 03/17/18at 08:40 ; Start 03/17/18 at 08:15; Stop 03/17/18 at 08:16; Status DC Morphine Sulfate (Morphine Sulfate) 5 mg 1X ONCE IV Last administered on 03/17at 08:40; Start 03/17/18 at 08:15; Stop 03/17/18 at 08:16; Status DC Iohexol (Omnipaque 300 Mg/ml) 75 ml 1X ONCE IV Last administered on at 10:19; Start 03/17/18 at 09:00; Stop 03/17/18 at 09:01; Status DC Info (CONTRAST GIVEN -- Rx MONITORING) 1 each PRN DAILY PRN MC SEE COMMENTS; Start 03/17/18 at 09:00; Stop 03/19/18 at 08:59; Status DC Morphine Sulfate (Morphine Sulfate) 5 mg 1X ONCE IV Last administered on 03/17at 09:25; Start 03/17/18 at 09:15; Stop 03/17/18 at 09:16; Status DC Prochlorperazine Edisylate (Compazine) 10 mg 1X ONCE IV Last administered on 03/17/18at 09:25; Start 03/17/18 at 09:15; Stop 03/17/18 at 09:16; Status DC Sodium Chloride 1,000 ml @ 1,000 mls/hr Q1H IV ; Start 03/17/18 at 10:58; Stop 03/17/18 at 11:57; Status DC Insulin Human Regular 150 unit/ Sodium Chloride 151.5 ml @ 0 mls/hr CONT PRN PRN IV PER PROTOCOL; Start 03/17/18 at 11:00; Status Cancel Insulin Human Regular 150 ml @ 0 mls/hr CONT PRN PRN IV PER PROTOCOL Last administered on 03/17/18at 15:23; Start 03/17/18 at 11:15; Stop 03/17/18 at 13 :01; Status DC Insulin Human Regular 150 unit/ Sodium Chloride 151.5 ml @ 0 mls/hr CONT PRN PRN IV PER PROTOCOL Last administered on 03/17/18at 18:34; Start 03/17/18 at 18 :00; Stop 03/18/18 at 03:41; Status DC Ondansetron HCl (Zofran) 4 mg PRN Q8HRS PRN IV NAUSEA/VOMITING Last administered on 03/17/18at 14:46; Start 03/17/18 at 11:45; Stop 03/18/18 at 11 :44; Status DC Morphine Sulfate (Morphine Sulfate) 4 mg PRN Q2HR PRN IV PAIN Last administered on 03/18/18at 06:24; Start 03/17/18 at 11:45; Stop 03/18/18 at 11 :44; Status DC Sodium Chloride 1,000 ml @ 125 mls/hr 1X ONCE IV Last administered on at 15:21; Start 03/17/18 at 11:45; Stop 03/17/18 at 19:44; Status DC Famotidine (Pepcid Vial) 20 mg QHS IVP Last administered on 03/20/18at 20:47; Start 03/17/18 at 21:00 Enoxaparin Sodium (Lovenox 40mg Syringe) 40 mg Q24H SQ Last administered on 03/20/18at 17:29; Start 03/17/18 at 16:00 Acetaminophen (Tylenol) 650 mg PRN Q6HRS PRN PO FEVER Last administered on at 23:37; Start 03/17/18 at 14:30 Ondansetron HCl (Zofran) 4 mg PRN Q6HRS PRN IV NAUSEA/VOMITING Last administered on 03/19/18at 12:15; Start 03/17/18 at 14:30 Morphine Sulfate (Morphine Sulfate) 2 mg PRN Q2HR PRN IV MODERATE TO SEVERE PAIN Last administered on 03/21/18at 06:07; Start 03/17/18 at 14:30 Tramadol HCl (Ultram) 50 mg PRN Q6HRS PRN PO MILD TO MODERATE PAIN Last administered on 03/21/18at 02:37; Start 03/17/18 at 14:30 Docusate Sodium (Colace) 100 mg PRN DAILY PRN PO CONSTIPATION Last administered on 03/18/18at 18:05; Start 03/17/18 at 14:30 Labetalol HCl (Normodyne Iv Push) 20 mg PRN Q2HR PRN IVP HYPERTENSION, SEE COMMENTS; Start 03/17/18 at 14:30 Ceftriaxone Sodium 1 gm/ Dextrose 50 ml @ 100 mls/hr Q24H IV ; Start 03/17/18 at 14:30; Status UNV Potassium Phosphate 10 mmol/ Dextrose 253.3333 ml @ 126.... Q2H IV Last administered on 03/17/18at 17:30; Start 03/17/18 at 15:30; Stop 03/17/18 at 19 :29; Status DC Ceftriaxone Sodium (Rocephin) 1 gm Q24H IVP Last administered on 03/20/18at 14: 57; Start 03/17/18 at 15:00 Influenza Virus Vaccine (Afluria Trivalent [id number] Syringe) 0.5 ml ONCE ONCE VAX IM Last administered on 03/18/18at 08:18; Start 03/17/18 at 17:00; Stop 03/17/18 at 17:01; Status DC Sodium Chloride 1,000 ml @ 500 mls/hr Q2H IV ; Start 03/17/18 at 19:10; Stop 03/17/18 at 21:09; Status Cancel Magnesium Sulfate/ Dextrose 100 ml @ 25 mls/hr PRN DAILY PRN IV MAG < 1.8; Start 03/18/18 at 09:00; Stop 03/18/18 at 09:00; Status DC Sodium Phosphate 40 mmol/Sodium Chloride 513.3333 ml @ 83.3 mls/hr 1X PRN PRN IV SEE COMMENTS; Start 03/17/18 at 19:15; Stop 03/18/18 at 03:41; Status DC Sodium Phosphate 20 mmol/Dextrose 256.6667 ml @ 62.5 mls/hr 1X PRN PRN IV SEE COMMENTS Last administered on 03/17/18at 21:41; Start 03/17/18 at 19:15; Stop 03/18/18 at 03:41; Status DC Sodium Phosphate 10 mmol/Dextrose 253.3333 ml @ 62.5 mls/hr 1X PRN PRN IV SEE COMMENTS; Start 03/17/18 at 19:15; Stop 03/18/18 at 03:41; Status DC Sodium Chloride 1,000 ml @ 250 mls/hr Q4H IV Last administered on 03/17/18at 19:29; Start 03/17/18 at 19:18; Stop 03/17/18 at 21:33; Status DC Potassium Chloride/Dextrose/ Sod Cl 1,000 ml @ 250 mls/hr Q4H IV Last administered on 03/17/18at 21:35; Start 03/17/18 at 22:00; Stop 03/18/18 at 01 :59; Status DC Sodium Chloride 1,000 ml @ 250 mls/hr Q4H IV Last administered on 03/18/18at 01:40; Start 03/18/18 at 01:40; Stop 03/18/18 at 03:38; Status DC Potassium Chloride 40 meq/ Sodium Chloride 1,020 ml @ 250 mls/hr Q4H5M IV Last administered on 03/18/18at 03:54; Start 03/18/18 at 04:00; Stop 03/18/18 at 08:04; Status DC Sodium Chloride 1,000 ml @ 100 mls/hr Q10H IV Last administered on 03/19/18at 20:58; Start 03/18/18 at 08:00; Stop 03/20/18 at 15:03; Status DC Insulin Human Lispro (HumaLOG) 0-7 UNITS QIDACHS SQ ; Start 03/18/18 at 07:30; Stop 03/18/18 at 07:30; Status DC Dextrose (Dextrose 50%-Water Syringe) 12.5 gm PRN Q15MIN PRN IV SEE COMMENTS; Start 03/18/18 at 03:45 Insulin Human Lispro (HumaLOG) 0-7 UNITS Q6HRS SQ Last administered on at 18:11; Start 03/18/18 at 07:30; Stop 03/18/18 at 20:03; Status DC Insulin Glargine (Lantus) 30 units 1X ONCE SQ Last administered on 03/18/18at 22:02; Start 03/18/18 at 20:00; Stop 03/18/18 at 20:06; Status DC Insulin Human Lispro (HumaLOG) 10 units TIDAC SQ Last administered on at 17:48; Start 03/19/18 at 07:30 Insulin Human Lispro (HumaLOG) 0-9 UNITS TIDACHC SQ Last administered on at 21:29; Start 03/18/18 at 21:00 Lactobacillus Rhamnosus (Culturelle) 1 cap BID PO Last administered on at 20:46; Start 03/19/18 at 21:00 Potassium Chloride (Klor-Con) 40 meq 1X ONCE PO Last administered on at 08:22; Start 03/20/18 at 07:15; Stop 03/20/18 at 07:16; Status DC Potassium Chloride/Sodium Chloride 1,000 ml @ 75 mls/hr 1X ONCE IV Last administered on 03/20/18at 08:38; Start 03/20/18 at 07:30; Stop 03/20/18 at 20:49 ; Status DC Sodium Phosphate 15 mmol/Dextrose 255 ml @ 125 mls/hr PRN DAILY PRN IV PHOS 2.0-2.4; Start 03/20/18 at 15:00 Sodium Phosphate 30 mmol/Dextrose 260 ml @ 125 mls/hr PRN DAILY PRN IV PHOS< 1.9; Start 03/20/18 at 15:00 Sodium Phosphate 30 mmol/Dextrose 260 ml @ 125 mls/hr 1X ONCE IV Last administered on 03/20/18at 17:29; Start 03/20/18 at 16:00; Stop 03/20/18 at 18:04 ; Status DC Sodium Chloride 1,000 ml @ 100 mls/hr Q10H IV Last administered on 03/21/18at 06:06; Start 03/20/18 at 21:00 Active Scripts Active Reported Tricor (Fenofibrate Nanocrystallized) 145 Mg Tablet 145 Mg PO DAILY Novolog Flexpen (Insulin Aspart) 100 Unit/1 Ml Insuln.pen 35 Unit SQ BIDAC Humulin N Kwikpen (Nph, Human Insulin Isophane) 100 Unit/1 Ml Insuln.pen 35 Unit SQ BID Vitals/I & O Vital Sign - Last 24 Hours 03/20/18 03/20/18 03/20/18 03/20/18 12:00 12:23 14:57 16:00 Temp 98.1 97.6 98.1 97.6 Pulse 104 106 Resp 20 18 18 20 B/P (MAP) 149/79 (102) 137/77 (97) Pulse Ox 96 96 O2 Delivery Room Air Room Air Room Air Room Air 03/20/18 03/20/18 03/20/18 03/20/18 17:32 20:04 20:09 20:46 Temp 98.3 98.3 Pulse 95 Resp 18 B/P (MAP) 144/75 (98) Pulse Ox 97 97 O2 Delivery Room Air Room Air Room Air Room Air 03/20/18 03/20/18 03/21/18 03/21/18 20:53 22:51 00:12 02:37 Temp 98.2 98.2 Pulse 105 Resp 18 B/P (MAP) 167/84 (111) Pulse Ox 97 96 96 96 O2 Delivery Room Air Room Air Room Air Room Air 03/21/18 03/21/18 03/21/18 03/21/18 02:37 03:02 03:33 06:07 Temp 98.4 98.4 Pulse 102 Resp 18 18 B/P (MAP) 143/77 (99) Pulse Ox 96 97 97 97 O2 Delivery Room Air Room Air Room Air Room Air 03/21/18 06:44 Resp 18 Pulse Ox 97 O2 Delivery Room Air Intake and Output 03/20/18 03/20/18 03/21/18 15:00 23:00 07:00 Intake Total 1275 ml 300 ml 1400 ml Balance 1275 ml 300 ml 1400 ml SHIV ROJAS MD Mar 21, 2018 08:31
[2018-03-21] MEDS: LACTOBACILLUS RHAMNOSUS GG 1 CAPSULE. PO SCH ×2 (09:54→21:31)
[2018-03-21] MEDS: INSULIN LISPRO 300 UNITS/3 ML INSULN.PEN. SQ SCH ×7 (09:58→21:50)
[2018-03-21 11:00] VITALS: BP 146/78
--- NOTE | 2018-03-21 11:37 | PDOC ---
G I PROGRESS NOTE Reason for Follow-up abd pain/pancreatitis Subjective feeling better Physical Exam Lungs clear CV S1 S2 ABD +BS, soft, decreased tenderness Review of Relevant I have reviewed the following items destiny (where applicable) has been applied. Labs Laboratory Tests Test 03/19/18 16:43 03/19/18 21:12 03/20/18 05:45 03/20/18 07:45 Glucose (Fingerstick) 174 mg/dL (70-99) 153 mg/dL (70-99) 217 mg/dL (70-99) White Blood Count 7.8 x10^3/uL (4.0-11.0) Red Blood Count 3.68 x10^6/uL (3.50-5.40) Hemoglobin 10.8 g/dL (12.0-15.5) Hematocrit 31.8 % (36.0-47.0) Mean Corpuscular Volume 86 fL (79-100) Mean Corpuscular Hemoglobin 29 pg (25-35) Mean Corpuscular Hemoglobin Concent 34 g/dL (31-37) Red Cell Distribution Width 14.2 % (11.5-14.5) Platelet Count 190 x10^3/uL (140-400) Neutrophils (%) (Auto) 78 % (31-73) Lymphocytes (%) (Auto) 16 % (24-48) Monocytes (%) (Auto) 4 % (0-9) Eosinophils (%) (Auto) 1 % (0-3) Basophils (%) (Auto) 1 % (0-3) Neutrophils # (Auto) 6.1 x10^3uL (1.8-7.7) Lymphocytes # (Auto) 1.2 x10^3/uL (1.0-4.8) Monocytes # (Auto) 0.3 x10^3/uL (0.0-1.1) Eosinophils # (Auto) 0.1 x10^3/uL (0.0-0.7) Basophils # (Auto) 0.0 x10^3/uL (0.0-0.2) Sodium Level 130 mmol/L (136-145) Potassium Level 2.9 mmol/L (3.5-5.1) Chloride Level 96 mmol/L (98-107) Carbon Dioxide Level 18 mmol/L (21-32) Anion Gap 16 (6-14) Blood Urea Nitrogen 2 mg/dL (7-20) Creatinine 0.4 mg/dL (0.6-1.0) Estimated GFR (Cockcroft-Gault) 180.6 Glucose Level 239 mg/dL (70-99) Calcium Level 7.9 mg/dL (8.5-10.1) Phosphorus Level 1.5 mg/dL (2.6-4.7) Magnesium Level 2.2 mg/dL (1.8-2.4) Lipase 1131 U/L (73-393) Test 03/20/18 10:56 03/20/18 16:21 03/20/18 21:23 03/21/18 05:10 Glucose (Fingerstick) 185 mg/dL (70-99) 239 mg/dL (70-99) 220 mg/dL (70-99) White Blood Count 10.8 x10^3/uL (4.0-11.0) Red Blood Count 3.98 x10^6/uL (3.50-5.40) Hemoglobin 11.8 g/dL (12.0-15.5) Hematocrit 34.1 % (36.0-47.0) Mean Corpuscular Volume 86 fL (79-100) Mean Corpuscular Hemoglobin 30 pg (25-35) Mean Corpuscular Hemoglobin Concent 35 g/dL (31-37) Red Cell Distribution Width 14.6 % (11.5-14.5) Platelet Count 261 x10^3/uL (140-400) Neutrophils (%) (Auto) 80 % (31-73) Lymphocytes (%) (Auto) 13 % (24-48) Monocytes (%) (Auto) 5 % (0-9) Eosinophils (%) (Auto) 2 % (0-3) Basophils (%) (Auto) 1 % (0-3) Neutrophils # (Auto) 8.6 x10^3uL (1.8-7.7) Lymphocytes # (Auto) 1.4 x10^3/uL (1.0-4.8) Monocytes # (Auto) 0.6 x10^3/uL (0.0-1.1) Eosinophils # (Auto) 0.2 x10^3/uL (0.0-0.7) Basophils # (Auto) 0.0 x10^3/uL (0.0-0.2) Test 03/21/18 05:15 03/21/18 07:41 Sodium Level 134 mmol/L (136-145) Potassium Level 3.1 mmol/L (3.5-5.1) Chloride Level 98 mmol/L (98-107) Carbon Dioxide Level 18 mmol/L (21-32) Anion Gap 18 (6-14) Blood Urea Nitrogen 2 mg/dL (7-20) Creatinine 0.4 mg/dL (0.6-1.0) Estimated GFR (Cockcroft-Gault) 180.6 Glucose Level 233 mg/dL (70-99) Calcium Level 8.5 mg/dL (8.5-10.1) Glucose (Fingerstick) 243 mg/dL (70-99) Laboratory Tests Test 03/20/18 16:21 03/20/18 21:23 03/21/18 05:10 03/21/18 05:15 Glucose (Fingerstick) 239 mg/dL (70-99) 220 mg/dL (70-99) White Blood Count 10.8 x10^3/uL (4.0-11.0) Red Blood Count 3.98 x10^6/uL (3.50-5.40) Hemoglobin 11.8 g/dL (12.0-15.5) Hematocrit 34.1 % (36.0-47.0) Mean Corpuscular Volume 86 fL (79-100) Mean Corpuscular Hemoglobin 30 pg (25-35) Mean Corpuscular Hemoglobin Concent 35 g/dL (31-37) Red Cell Distribution Width 14.6 % (11.5-14.5) Platelet Count 261 x10^3/uL (140-400) Neutrophils (%) (Auto) 80 % (31-73) Lymphocytes (%) (Auto) 13 % (24-48) Monocytes (%) (Auto) 5 % (0-9) Eosinophils (%) (Auto) 2 % (0-3) Basophils (%) (Auto) 1 % (0-3) Neutrophils # (Auto) 8.6 x10^3uL (1.8-7.7) Lymphocytes # (Auto) 1.4 x10^3/uL (1.0-4.8) Monocytes # (Auto) 0.6 x10^3/uL (0.0-1.1) Eosinophils # (Auto) 0.2 x10^3/uL (0.0-0.7) Basophils # (Auto) 0.0 x10^3/uL (0.0-0.2) Sodium Level 134 mmol/L (136-145) Potassium Level 3.1 mmol/L (3.5-5.1) Chloride Level 98 mmol/L (98-107) Carbon Dioxide Level 18 mmol/L (21-32) Anion Gap 18 (6-14) Blood Urea Nitrogen 2 mg/dL (7-20) Creatinine 0.4 mg/dL (0.6-1.0) Estimated GFR (Cockcroft-Gault) 180.6 Glucose Level 233 mg/dL (70-99) Calcium Level 8.5 mg/dL (8.5-10.1) Test 03/21/18 07:41 Glucose (Fingerstick) 243 mg/dL (70-99) Microbiology 03/17/18 Urine Culture - Final, Complete 03/17/18 Urine Culture Result 1 (VELMA) - Final, Complete Medications Current Medications Sodium Chloride 1,000 ml @ 1,000 mls/hr 1X ONCE IV Last administered on 03/17at 08:41; Start 03/17/18 at 08:15; Stop 03/17/18 at 09:14; Status DC Ondansetron HCl (Zofran) 4 mg 1X ONCE IV Last administered on 03/17/18at 08:40 ; Start 03/17/18 at 08:15; Stop 03/17/18 at 08:16; Status DC Morphine Sulfate (Morphine Sulfate) 5 mg 1X ONCE IV Last administered on 03/17at 08:40; Start 03/17/18 at 08:15; Stop 03/17/18 at 08:16; Status DC Iohexol (Omnipaque 300 Mg/ml) 75 ml 1X ONCE IV Last administered on at 10:19; Start 03/17/18 at 09:00; Stop 03/17/18 at 09:01; Status DC Info (CONTRAST GIVEN -- Rx MONITORING) 1 each PRN DAILY PRN MC SEE COMMENTS; Start 03/17/18 at 09:00; Stop 03/19/18 at 08:59; Status DC Morphine Sulfate (Morphine Sulfate) 5 mg 1X ONCE IV Last administered on 03/17at 09:25; Start 03/17/18 at 09:15; Stop 03/17/18 at 09:16; Status DC Prochlorperazine Edisylate (Compazine) 10 mg 1X ONCE IV Last administered on 03/17/18at 09:25; Start 03/17/18 at 09:15; Stop 03/17/18 at 09:16; Status DC Sodium Chloride 1,000 ml @ 1,000 mls/hr Q1H IV ; Start 03/17/18 at 10:58; Stop 03/17/18 at 11:57; Status DC Insulin Human Regular 150 unit/ Sodium Chloride 151.5 ml @ 0 mls/hr CONT PRN PRN IV PER PROTOCOL; Start 03/17/18 at 11:00; Status Cancel Insulin Human Regular 150 ml @ 0 mls/hr CONT PRN PRN IV PER PROTOCOL Last administered on 03/17/18at 15:23; Start 03/17/18 at 11:15; Stop 03/17/18 at 13 :01; Status DC Insulin Human Regular 150 unit/ Sodium Chloride 151.5 ml @ 0 mls/hr CONT PRN PRN IV PER PROTOCOL Last administered on 03/17/18at 18:34; Start 03/17/18 at 18 :00; Stop 03/18/18 at 03:41; Status DC Ondansetron HCl (Zofran) 4 mg PRN Q8HRS PRN IV NAUSEA/VOMITING Last administered on 03/17/18at 14:46; Start 03/17/18 at 11:45; Stop 03/18/18 at 11 :44; Status DC Morphine Sulfate (Morphine Sulfate) 4 mg PRN Q2HR PRN IV PAIN Last administered on 03/18/18at 06:24; Start 03/17/18 at 11:45; Stop 03/18/18 at 11 :44; Status DC Sodium Chloride 1,000 ml @ 125 mls/hr 1X ONCE IV Last administered on at 15:21; Start 03/17/18 at 11:45; Stop 03/17/18 at 19:44; Status DC Famotidine (Pepcid Vial) 20 mg QHS IVP Last administered on 03/20/18at 20:47; Start 03/17/18 at 21:00 Enoxaparin Sodium (Lovenox 40mg Syringe) 40 mg Q24H SQ Last administered on 03/20/18at 17:29; Start 03/17/18 at 16:00 Acetaminophen (Tylenol) 650 mg PRN Q6HRS PRN PO FEVER Last administered on at 23:37; Start 03/17/18 at 14:30 Ondansetron HCl (Zofran) 4 mg PRN Q6HRS PRN IV NAUSEA/VOMITING Last administered on 03/19/18at 12:15; Start 03/17/18 at 14:30 Morphine Sulfate (Morphine Sulfate) 2 mg PRN Q2HR PRN IV MODERATE TO SEVERE PAIN Last administered on 03/21/18at 06:07; Start 03/17/18 at 14:30 Tramadol HCl (Ultram) 50 mg PRN Q6HRS PRN PO MILD TO MODERATE PAIN Last administered on 03/21/18at 10:05; Start 03/17/18 at 14:30 Docusate Sodium (Colace) 100 mg PRN DAILY PRN PO CONSTIPATION Last administered on 03/18/18at 18:05; Start 03/17/18 at 14:30 Labetalol HCl (Normodyne Iv Push) 20 mg PRN Q2HR PRN IVP HYPERTENSION, SEE COMMENTS; Start 03/17/18 at 14:30 Ceftriaxone Sodium 1 gm/ Dextrose 50 ml @ 100 mls/hr Q24H IV ; Start 03/17/18 at 14:30; Status UNV Potassium Phosphate 10 mmol/ Dextrose 253.3333 ml @ 126.... Q2H IV Last administered on 03/17/18at 17:30; Start 03/17/18 at 15:30; Stop 03/17/18 at 19 :29; Status DC Ceftriaxone Sodium (Rocephin) 1 gm Q24H IVP Last administered on 03/20/18at 14: 57; Start 03/17/18 at 15:00 Influenza Virus Vaccine (Afluria Trivalent [id number] Syringe) 0.5 ml ONCE ONCE VAX IM Last administered on 03/18/18at 08:18; Start 03/17/18 at 17:00; Stop 03/17/18 at 17:01; Status DC Sodium Chloride 1,000 ml @ 500 mls/hr Q2H IV ; Start 03/17/18 at 19:10; Stop 03/17/18 at 21:09; Status Cancel Magnesium Sulfate/ Dextrose 100 ml @ 25 mls/hr PRN DAILY PRN IV MAG < 1.8; Start 03/18/18 at 09:00; Stop 03/18/18 at 09:00; Status DC Sodium Phosphate 40 mmol/Sodium Chloride 513.3333 ml @ 83.3 mls/hr 1X PRN PRN IV SEE COMMENTS; Start 03/17/18 at 19:15; Stop 03/18/18 at 03:41; Status DC Sodium Phosphate 20 mmol/Dextrose 256.6667 ml @ 62.5 mls/hr 1X PRN PRN IV SEE COMMENTS Last administered on 03/17/18at 21:41; Start 03/17/18 at 19:15; Stop 03/18/18 at 03:41; Status DC Sodium Phosphate 10 mmol/Dextrose 253.3333 ml @ 62.5 mls/hr 1X PRN PRN IV SEE COMMENTS; Start 03/17/18 at 19:15; Stop 03/18/18 at 03:41; Status DC Sodium Chloride 1,000 ml @ 250 mls/hr Q4H IV Last administered on 03/17/18at 19:29; Start 03/17/18 at 19:18; Stop 03/17/18 at 21:33; Status DC Potassium Chloride/Dextrose/ Sod Cl 1,000 ml @ 250 mls/hr Q4H IV Last administered on 03/17/18at 21:35; Start 03/17/18 at 22:00; Stop 03/18/18 at 01 :59; Status DC Sodium Chloride 1,000 ml @ 250 mls/hr Q4H IV Last administered on 03/18/18at 01:40; Start 03/18/18 at 01:40; Stop 03/18/18 at 03:38; Status DC Potassium Chloride 40 meq/ Sodium Chloride 1,020 ml @ 250 mls/hr Q4H5M IV Last administered on 03/18/18at 03:54; Start 03/18/18 at 04:00; Stop 03/18/18 at 08:04; Status DC Sodium Chloride 1,000 ml @ 100 mls/hr Q10H IV Last administered on 03/19/18at 20:58; Start 03/18/18 at 08:00; Stop 03/20/18 at 15:03; Status DC Insulin Human Lispro (HumaLOG) 0-7 UNITS QIDACHS SQ ; Start 03/18/18 at 07:30; Stop 03/18/18 at 07:30; Status DC Dextrose (Dextrose 50%-Water Syringe) 12.5 gm PRN Q15MIN PRN IV SEE COMMENTS; Start 03/18/18 at 03:45 Insulin Human Lispro (HumaLOG) 0-7 UNITS Q6HRS SQ Last administered on at 18:11; Start 03/18/18 at 07:30; Stop 03/18/18 at 20:03; Status DC Insulin Glargine (Lantus) 30 units 1X ONCE SQ Last administered on 03/18/18at 22:02; Start 03/18/18 at 20:00; Stop 03/18/18 at 20:06; Status DC Insulin Human Lispro (HumaLOG) 10 units TIDAC SQ Last administered on at 09:58; Start 03/19/18 at 07:30 Insulin Human Lispro (HumaLOG) 0-9 UNITS TIDACHC SQ Last administered on at 09:59; Start 03/18/18 at 21:00 Lactobacillus Rhamnosus (Culturelle) 1 cap BID PO Last administered on at 09:54; Start 03/19/18 at 21:00 Potassium Chloride (Klor-Con) 40 meq 1X ONCE PO Last administered on at 08:22; Start 03/20/18 at 07:15; Stop 03/20/18 at 07:16; Status DC Potassium Chloride/Sodium Chloride 1,000 ml @ 75 mls/hr 1X ONCE IV Last administered on 03/20/18at 08:38; Start 03/20/18 at 07:30; Stop 03/20/18 at 20:49 ; Status DC Sodium Phosphate 15 mmol/Dextrose 255 ml @ 125 mls/hr PRN DAILY PRN IV PHOS 2.0-2.4; Start 03/20/18 at 15:00 Sodium Phosphate 30 mmol/Dextrose 260 ml @ 125 mls/hr PRN DAILY PRN IV PHOS< 1.9; Start 03/20/18 at 15:00 Sodium Phosphate 30 mmol/Dextrose 260 ml @ 125 mls/hr 1X ONCE IV Last administered on 03/20/18at 17:29; Start 03/20/18 at 16:00; Stop 03/20/18 at 18:04 ; Status DC Sodium Chloride 1,000 ml @ 100 mls/hr Q10H IV Last administered on 03/21/18at 06:06; Start 03/20/18 at 21:00 Active Scripts Active Reported Tricor (Fenofibrate Nanocrystallized) 145 Mg Tablet 145 Mg PO DAILY Novolog Flexpen (Insulin Aspart) 100 Unit/1 Ml Insuln.pen 35 Unit SQ BIDAC Humulin N Kwikpen (Nph, Human Insulin Isophane) 100 Unit/1 Ml Insuln.pen 35 Unit SQ BID Vitals/I & O Vital Sign - Last 24 Hours 03/20/18 03/20/18 03/20/18 03/20/18 12:00 12:23 14:57 16:00 Temp 98.1 97.6 98.1 97.6 Pulse 104 106 Resp 20 18 18 20 B/P (MAP) 149/79 (102) 137/77 (97) Pulse Ox 96 96 O2 Delivery Room Air Room Air Room Air Room Air 03/20/18 03/20/18 03/20/18 03/20/18 17:32 20:04 20:09 20:46 Temp 98.3 98.3 Pulse 95 Resp 18 19 18 B/P (MAP) 144/75 (98) Pulse Ox 97 97 O2 Delivery Room Air Room Air Room Air Room Air 03/20/18 03/20/18 03/21/18 03/21/18 20:53 22:51 00:12 02:37 Temp 98.2 98.2 Pulse 105 Resp 18 18 18 18 B/P (MAP) 167/84 (111) Pulse Ox 97 96 96 96 O2 Delivery Room Air Room Air Room Air Room Air 03/21/18 03/21/18 03/21/18 03/21/18 02:37 03:02 03:33 06:07 Temp 98.4 98.4 Pulse 102 Resp 18 17 18 18 B/P (MAP) 143/77 (99) Pulse Ox 96 97 97 97 O2 Delivery Room Air Room Air Room Air Room Air 03/21/18 03/21/18 03/21/18 06:44 07:00 10:05 Temp 98.0 98.0 Pulse 106 Resp 18 20 20 B/P (MAP) 149/82 (104) Pulse Ox 97 96 94 O2 Delivery Room Air Room Air Room Air Intake and Output 03/20/18 03/20/18 03/21/18 15:00 23:00 07:00 Intake Total 1275 ml 300 ml 1400 ml Balance 1275 ml 300 ml 1400 ml Problem List Problems Medical Problems: (1) Acute pancreatitis Status: Acute (2) DKA (diabetic ketoacidoses) Status: Acute Assessment Acute pancreatitis- slowly improving, advance diet as pain improves, hold on CT presently with clinical improvement. KLEVER LUNA MD Mar 21, 2018 11:37
[2018-03-21] MEDS ORDERED: POTASSIUM CHLORIDE 20 MEQ TABLET.ER. PO ONE (14:45)
[2018-03-21 15:00] VITALS: BP 152/77
[2018-03-21] MEDS: ENOXAPARIN 40 MG/0.4 ML SYRINGE. SQ SCH (16:33)
[2018-03-21] MEDS: cefTRIAXone IV Push 1 GM VIAL. IVP SCH (17:12)
[2018-03-21 19:00] VITALS: BP 149/76
[2018-03-21] MEDS: FAMOTIDINE 20 MG/2 ML VIAL IVP SCH (21:28)
[2018-03-21] MEDS: CEFPODOXIME PROXETIL 100 MG TABLET. PO SCH (21:31)
[2018-03-21 22:34] VITALS: BP 144/75
[2018-03-22] MEDS: MORPHINE SULFATE 2 MG/ML VIAL. IV PRN ×8 (00:05→23:50)
[2018-03-22] MEDS: traMADol 50 MG TABLET PO PRN ×4 (00:05→21:20)
[2018-03-22 02:45] VITALS: BP 134/76
[2018-03-22] MEDS: IV NORMAL SALINE 1000ML BAG 1,000 ML IV SCH ×3 (03:20→23:50)
[2018-03-22 04:44] LABS: BASO # 0.1 x10^3/uL (0.0-0.2); BASO % 1 % (0-3); EOS # 0.2 x10^3/uL (0.0-0.7); EOS % 2 % (0-3); HEMATOCRIT 31.6 % (36.0-47.0); HEMOGLOBIN 10.8 g/dL (12.0-15.5); LYMPH % 10 % (24-48); MEAN CORPUSCULAR HEMOGLOBIN 29 pg (25-35); MEAN CORPUSCULAR HGB CONC 34 g/dL (31-37); MEAN CORPUSCULAR VOLUME 86 fL (79-100); MONO # 0.8 x10^3/uL (0.0-1.1); MONO % 8 % (0-9); NEUT # 7.8 x10^3uL (1.8-7.7); NEUT % 79 % (31-73); PLATELET COUNT 254 x10^3/uL (140-400); RED BLOOD COUNT 3.69 x10^6/uL (3.50-5.40); WHITE BLOOD COUNT 9.9 x10^3/uL (4.0-11.0)
[2018-03-22 05:20] LABS: CREATININE 0.4 mg/dL (0.6-1.0); GFR 180.6; POTASSIUM 3.2 mmol/L (3.5-5.1)
[2018-03-22 06:33] VITALS: BP 145/83
[2018-03-22] MEDS: CEFPODOXIME PROXETIL 100 MG TABLET. PO SCH ×2 (07:57→20:30)
[2018-03-22] MEDS: LACTOBACILLUS RHAMNOSUS GG 1 CAPSULE. PO SCH ×2 (07:57→20:30)
[2018-03-22] MEDS: INSULIN LISPRO 300 UNITS/3 ML INSULN.PEN. SQ SCH ×7 (08:00→20:31)
--- NOTE | 2018-03-22 09:13 | PDOC ---
PROGRESS NOTES Chief Complaint Chief Complaint Acute recurrent pancreatitis H/o pancreatitis with HLD DKA, anion gap closed, resolved T2DM on insulin Htn urgency Elevated transaminitis H/o cholecystectomy HLD Hypophosphatemia Hypokalemia on replacement Possible UTI pt reports mod improvement today iv pain control, still having mod pain replace lytes, k gi following ct delayed due to improved symptoms accuchecks serum lipase full liquids History of Present Illness History of Present Illness Pt seen and examined in ICU Laying in bed, calm, cooperative Discussed with RN Vitals Vitals Vital Signs Date Time Temp Pulse Resp B/P (MAP) Pulse Ox O2 Delivery O2 Flow Rate FiO2 03/22/18 08:51 95 Room Air 03/22/18 06:33 98.9 103 19 145/83 (103) 98.9 Physical Exam General: Alert, Oriented X3, Cooperative, mild distress Heart: Regular rate, Normal S1, Normal S2, No murmurs Lungs: Clear Abdomen: Normal bowel sounds, Soft, Other (less tender, no rebound) Extremities: No clubbing, No cyanosis, No edema Skin: No rashes, No breakdown Labs LABS Laboratory Tests Test 03/21/18 11:19 03/21/18 16:24 03/21/18 20:46 03/22/18 04:00 Glucose (Fingerstick) 206 mg/dL (70-99) 194 mg/dL (70-99) 203 mg/dL (70-99) White Blood Count 9.9 x10^3/uL (4.0-11.0) Red Blood Count 3.69 x10^6/uL (3.50-5.40) Hemoglobin 10.8 g/dL (12.0-15.5) Hematocrit 31.6 % (36.0-47.0) Mean Corpuscular Volume 86 fL (79-100) Mean Corpuscular Hemoglobin 29 pg (25-35) Mean Corpuscular Hemoglobin Concent 34 g/dL (31-37) Red Cell Distribution Width 14.0 % (11.5-14.5) Platelet Count 254 x10^3/uL (140-400) Neutrophils (%) (Auto) 79 % (31-73) Lymphocytes (%) (Auto) 10 % (24-48) Monocytes (%) (Auto) 8 % (0-9) Eosinophils (%) (Auto) 2 % (0-3) Basophils (%) (Auto) 1 % (0-3) Neutrophils # (Auto) 7.8 x10^3uL (1.8-7.7) Lymphocytes # (Auto) 1.0 x10^3/uL (1.0-4.8) Monocytes # (Auto) 0.8 x10^3/uL (0.0-1.1) Eosinophils # (Auto) 0.2 x10^3/uL (0.0-0.7) Basophils # (Auto) 0.1 x10^3/uL (0.0-0.2) Sodium Level 133 mmol/L (136-145) Potassium Level 3.2 mmol/L (3.5-5.1) Chloride Level 99 mmol/L (98-107) Carbon Dioxide Level 17 mmol/L (21-32) Anion Gap 17 (6-14) Blood Urea Nitrogen 2 mg/dL (7-20) Creatinine 0.4 mg/dL (0.6-1.0) Estimated GFR (Cockcroft-Gault) 180.6 Glucose Level 249 mg/dL (70-99) Calcium Level 8.0 mg/dL (8.5-10.1) Test 03/22/18 07:43 Glucose (Fingerstick) 232 mg/dL (70-99) Assessment and Plan Assessmemt and Plan Problems Medical Problems: (1) Acute pancreatitis Status: Acute (2) DKA (diabetic ketoacidoses) Status: Acute Comment Review of Relevant I have reviewed the following items destiny (where applicable) has been applied. Labs Laboratory Tests Test 03/20/18 10:56 03/20/18 16:21 03/20/18 21:23 03/21/18 05:10 Glucose (Fingerstick) 185 mg/dL (70-99) 239 mg/dL (70-99) 220 mg/dL (70-99) White Blood Count 10.8 x10^3/uL (4.0-11.0) Red Blood Count 3.98 x10^6/uL (3.50-5.40) Hemoglobin 11.8 g/dL (12.0-15.5) Hematocrit 34.1 % (36.0-47.0) Mean Corpuscular Volume 86 fL (79-100) Mean Corpuscular Hemoglobin 30 pg (25-35) Mean Corpuscular Hemoglobin Concent 35 g/dL (31-37) Red Cell Distribution Width 14.6 % (11.5-14.5) Platelet Count 261 x10^3/uL (140-400) Neutrophils (%) (Auto) 80 % (31-73) Lymphocytes (%) (Auto) 13 % (24-48) Monocytes (%) (Auto) 5 % (0-9) Eosinophils (%) (Auto) 2 % (0-3) Basophils (%) (Auto) 1 % (0-3) Neutrophils # (Auto) 8.6 x10^3uL (1.8-7.7) Lymphocytes # (Auto) 1.4 x10^3/uL (1.0-4.8) Monocytes # (Auto) 0.6 x10^3/uL (0.0-1.1) Eosinophils # (Auto) 0.2 x10^3/uL (0.0-0.7) Basophils # (Auto) 0.0 x10^3/uL (0.0-0.2) Test 03/21/18 05:15 03/21/18 07:41 03/21/18 11:19 03/21/18 16:24 Sodium Level 134 mmol/L (136-145) Potassium Level 3.1 mmol/L (3.5-5.1) Chloride Level 98 mmol/L (98-107) Carbon Dioxide Level 18 mmol/L (21-32) Anion Gap 18 (6-14) Blood Urea Nitrogen 2 mg/dL (7-20) Creatinine 0.4 mg/dL (0.6-1.0) Estimated GFR (Cockcroft-Gault) 180.6 Glucose Level 233 mg/dL (70-99) Calcium Level 8.5 mg/dL (8.5-10.1) Lipase 855 U/L (73-393) Glucose (Fingerstick) 243 mg/dL (70-99) 206 mg/dL (70-99) 194 mg/dL (70-99) Test 03/21/18 20:46 03/22/18 04:00 03/22/18 07:43 Glucose (Fingerstick) 203 mg/dL (70-99) 232 mg/dL (70-99) White Blood Count 9.9 x10^3/uL (4.0-11.0) Red Blood Count 3.69 x10^6/uL (3.50-5.40) Hemoglobin 10.8 g/dL (12.0-15.5) Hematocrit 31.6 % (36.0-47.0) Mean Corpuscular Volume 86 fL (79-100) Mean Corpuscular Hemoglobin 29 pg (25-35) Mean Corpuscular Hemoglobin Concent 34 g/dL (31-37) Red Cell Distribution Width 14.0 % (11.5-14.5) Platelet Count 254 x10^3/uL (140-400) Neutrophils (%) (Auto) 79 % (31-73) Lymphocytes (%) (Auto) 10 % (24-48) Monocytes (%) (Auto) 8 % (0-9) Eosinophils (%) (Auto) 2 % (0-3) Basophils (%) (Auto) 1 % (0-3) Neutrophils # (Auto) 7.8 x10^3uL (1.8-7.7) Lymphocytes # (Auto) 1.0 x10^3/uL (1.0-4.8) Monocytes # (Auto) 0.8 x10^3/uL (0.0-1.1) Eosinophils # (Auto) 0.2 x10^3/uL (0.0-0.7) Basophils # (Auto) 0.1 x10^3/uL (0.0-0.2) Sodium Level 133 mmol/L (136-145) Potassium Level 3.2 mmol/L (3.5-5.1) Chloride Level 99 mmol/L (98-107) Carbon Dioxide Level 17 mmol/L (21-32) Anion Gap 17 (6-14) Blood Urea Nitrogen 2 mg/dL (7-20) Creatinine 0.4 mg/dL (0.6-1.0) Estimated GFR (Cockcroft-Gault) 180.6 Glucose Level 249 mg/dL (70-99) Calcium Level 8.0 mg/dL (8.5-10.1) Laboratory Tests Test 03/21/18 11:19 03/21/18 16:24 03/21/18 20:46 03/22/18 04:00 Glucose (Fingerstick) 206 mg/dL (70-99) 194 mg/dL (70-99) 203 mg/dL (70-99) White Blood Count 9.9 x10^3/uL (4.0-11.0) Red Blood Count 3.69 x10^6/uL (3.50-5.40) Hemoglobin 10.8 g/dL (12.0-15.5) Hematocrit 31.6 % (36.0-47.0) Mean Corpuscular Volume 86 fL (79-100) Mean Corpuscular Hemoglobin 29 pg (25-35) Mean Corpuscular Hemoglobin Concent 34 g/dL (31-37) Red Cell Distribution Width 14.0 % (11.5-14.5) Platelet Count 254 x10^3/uL (140-400) Neutrophils (%) (Auto) 79 % (31-73) Lymphocytes (%) (Auto) 10 % (24-48) Monocytes (%) (Auto) 8 % (0-9) Eosinophils (%) (Auto) 2 % (0-3) Basophils (%) (Auto) 1 % (0-3) Neutrophils # (Auto) 7.8 x10^3uL (1.8-7.7) Lymphocytes # (Auto) 1.0 x10^3/uL (1.0-4.8) Monocytes # (Auto) 0.8 x10^3/uL (0.0-1.1) Eosinophils # (Auto) 0.2 x10^3/uL (0.0-0.7) Basophils # (Auto) 0.1 x10^3/uL (0.0-0.2) Sodium Level 133 mmol/L (136-145) Potassium Level 3.2 mmol/L (3.5-5.1) Chloride Level 99 mmol/L (98-107) Carbon Dioxide Level 17 mmol/L (21-32) Anion Gap 17 (6-14) Blood Urea Nitrogen 2 mg/dL (7-20) Creatinine 0.4 mg/dL (0.6-1.0) Estimated GFR (Cockcroft-Gault) 180.6 Glucose Level 249 mg/dL (70-99) Calcium Level 8.0 mg/dL (8.5-10.1) Test 03/22/18 07:43 Glucose (Fingerstick) 232 mg/dL (70-99) Microbiology 10/30/18 Urine Culture - Final, Complete 03/17/18 Urine Culture Result 1 (VELMA) - Final, Complete Medications Current Medications Sodium Chloride 1,000 ml @ 1,000 mls/hr 1X ONCE IV Last administered on 03/17at 08:41; Start 03/17/18 at 08:15; Stop 03/17/18 at 09:14; Status DC Ondansetron HCl (Zofran) 4 mg 1X ONCE IV Last administered on 03/17/18at 08:40 ; Start 03/17/18 at 08:15; Stop 03/17/18 at 08:16; Status DC Morphine Sulfate (Morphine Sulfate) 5 mg 1X ONCE IV Last administered on 03/17at 08:40; Start 03/17/18 at 08:15; Stop 03/17/18 at 08:16; Status DC Iohexol (Omnipaque 300 Mg/ml) 75 ml 1X ONCE IV Last administered on at 10:19; Start 03/17/18 at 09:00; Stop 03/17/18 at 09:01; Status DC Info (CONTRAST GIVEN -- Rx MONITORING) 1 each PRN DAILY PRN MC SEE COMMENTS; Start 03/17/18 at 09:00; Stop 03/19/18 at 08:59; Status DC Morphine Sulfate (Morphine Sulfate) 5 mg 1X ONCE IV Last administered on 03/17at 09:25; Start 03/17/18 at 09:15; Stop 03/17/18 at 09:16; Status DC Prochlorperazine Edisylate (Compazine) 10 mg 1X ONCE IV Last administered on 03/17/18at 09:25; Start 03/17/18 at 09:15; Stop 03/17/18 at 09:16; Status DC Sodium Chloride 1,000 ml @ 1,000 mls/hr Q1H IV ; Start 03/17/18 at 10:58; Stop 03/17/18 at 11:57; Status DC Insulin Human Regular 150 unit/ Sodium Chloride 151.5 ml @ 0 mls/hr CONT PRN PRN IV PER PROTOCOL; Start 03/17/18 at 11:00; Status Cancel Insulin Human Regular 150 ml @ 0 mls/hr CONT PRN PRN IV PER PROTOCOL Last administered on 03/17/18 15:23; Start 03/17/18 at 11:15; Stop 03/17/18 at 13 :01; Status DC Insulin Human Regular 150 unit/ Sodium Chloride 151.5 ml @ 0 mls/hr CONT PRN PRN IV PER PROTOCOL Last administered on 03/17/18 18:34; Start 03/17/18 at 18 :00; Stop 03/18/18 at 03:41; Status DC Ondansetron HCl (Zofran) 4 mg PRN Q8HRS PRN IV NAUSEA/VOMITING Last administered on 03/17/18at 14:46; Start 03/17/18 at 11:45; Stop 03/18/18 at 11 :44; Status DC Morphine Sulfate (Morphine Sulfate) 4 mg PRN Q2HR PRN IV PAIN Last administered on 03/18/18 06:24; Start 03/17/18 at 11:45; Stop 03/18/18 at 11 :44; Status DC Sodium Chloride 1,000 ml @ 125 mls/hr 1X ONCE IV Last administered on 15:21; Start 03/17/18 at 11:45; Stop 03/17/18 at 19:44; Status DC Famotidine (Pepcid Vial) 20 mg QHS IVP Last administered on 03/21/18 21:28; Start 03/17/18 at 21:00 Enoxaparin Sodium (Lovenox 40mg Syringe) 40 mg Q24H SQ Last administered on 16:33; Start 03/17/18 at 16:00 Acetaminophen (Tylenol) 650 mg PRN Q6HRS PRN PO FEVER Last administered on at 23:37; Start 03/17/18 at 14:30 Ondansetron HCl (Zofran) 4 mg PRN Q6HRS PRN IV NAUSEA/VOMITING Last administered on 03/19/18 12:15; Start 03/17/18 at 14:30 Morphine Sulfate (Morphine Sulfate) 2 mg PRN Q2HR PRN IV MODERATE TO SEVERE PAIN Last administered on 03/22/18 08:51; Start 03/17/18 at 14:30 Tramadol HCl (Ultram) 50 mg PRN Q6HRS PRN PO MILD TO MODERATE PAIN Last administered on 11/4/18at 06:17; Start 03/17/18 at 14:30 Docusate Sodium (Colace) 100 mg PRN DAILY PRN PO CONSTIPATION Last administered on 03/18/18at 18:05; Start 03/17/18 at 14:30 Labetalol HCl (Normodyne Iv Push) 20 mg PRN Q2HR PRN IVP HYPERTENSION, SEE COMMENTS; Start 03/17/18 at 14:30 Ceftriaxone Sodium 1 gm/ Dextrose 50 ml @ 100 mls/hr Q24H IV ; Start 03/17/18 at 14:30; Status UNV Potassium Phosphate 10 mmol/ Dextrose 253.3333 ml @ 126.... Q2H IV Last administered on 03/17/18at 17:30; Start 03/17/18 at 15:30; Stop 03/17/18 at 19 :29; Status DC Ceftriaxone Sodium (Rocephin) 1 gm Q24H IVP Last administered on 03/21/18at 17: 12; Start 03/17/18 at 15:00; Stop 03/21/18 at 17:00; Status DC Influenza Virus Vaccine (Afluria Trivalent 2507-6829 Syringe) 0.5 ml ONCE ONCE VAX IM Last administered on 03/18/18at 08:18; Start 03/17/18 at 17:00; Stop 03/17/18 at 17:01; Status DC Sodium Chloride 1,000 ml @ 500 mls/hr Q2H IV ; Start 03/17/18 at 19:10; Stop 03/17/18 at 21:09; Status Cancel Magnesium Sulfate/ Dextrose 100 ml @ 25 mls/hr PRN DAILY PRN IV MAG < 1.8; Start 03/18/18 at 09:00; Stop 03/18/18 at 09:00; Status DC Sodium Phosphate 40 mmol/Sodium Chloride 513.3333 ml @ 83.3 mls/hr 1X PRN PRN IV SEE COMMENTS; Start 03/17/18 at 19:15; Stop 03/18/18 at 03:41; Status DC Sodium Phosphate 20 mmol/Dextrose 256.6667 ml @ 62.5 mls/hr 1X PRN PRN IV SEE COMMENTS Last administered on 03/17/18at 21:41; Start 03/17/18 at 19:15; Stop 03/18/18 at 03:41; Status DC Sodium Phosphate 10 mmol/Dextrose 253.3333 ml @ 62.5 mls/hr 1X PRN PRN IV SEE COMMENTS; Start 03/17/18 at 19:15; Stop 03/18/18 at 03:41; Status DC Sodium Chloride 1,000 ml @ 250 mls/hr Q4H IV Last administered on 03/17/18at 19:29; Start 03/17/18 at 19:18; Stop 03/17/18 at 21:33; Status DC Potassium Chloride/Dextrose/ Sod Cl 1,000 ml @ 250 mls/hr Q4H IV Last administered on 03/17/18at 21:35; Start 03/17/18 at 22:00; Stop 03/18/18 at 01 :59; Status DC Sodium Chloride 1,000 ml @ 250 mls/hr Q4H IV Last administered on 03/18/18at 01:40; Start 03/18/18 at 01:40; Stop 03/18/18 at 03:38; Status DC Potassium Chloride 40 meq/ Sodium Chloride 1,020 ml @ 250 mls/hr Q4H5M IV Last administered on 03/18/18at 03:54; Start 03/18/18 at 04:00; Stop 03/18/18 at 08:04; Status DC Sodium Chloride 1,000 ml @ 100 mls/hr Q10H IV Last administered on 03/19/18at 20:58; Start 03/18/18 at 08:00; Stop 03/20/18 at 15:03; Status DC Insulin Human Lispro (HumaLOG) 0-7 UNITS QIDACHS SQ ; Start 03/18/18 at 07:30; Stop 03/18/18 at 07:30; Status DC Dextrose (Dextrose 50%-Water Syringe) 12.5 gm PRN Q15MIN PRN IV SEE COMMENTS; Start 03/18/18 at 03:45 Insulin Human Lispro (HumaLOG) 0-7 UNITS Q6HRS SQ Last administered on at 18:11; Start 03/18/18 at 07:30; Stop 03/18/18 at 20:03; Status DC Insulin Glargine (Lantus) 30 units 1X ONCE SQ Last administered on 03/18/18at 22:02; Start 03/18/18 at 20:00; Stop 03/18/18 at 20:06; Status DC Insulin Human Lispro (HumaLOG) 10 units TIDAC SQ Last administered on at 08:00; Start 03/19/18 at 07:30 Insulin Human Lispro (HumaLOG) 0-9 UNITS TIDACHC SQ Last administered on at 08:01; Start 03/18/18 at 21:00 Lactobacillus Rhamnosus (Culturelle) 1 cap BID PO Last administered on at 07:57; Start 03/19/18 at 21:00 Potassium Chloride (Klor-Con) 40 meq 1X ONCE PO Last administered on at 08:22; Start 03/20/18 at 07:15; Stop 03/20/18 at 07:16; Status DC Potassium Chloride/Sodium Chloride 1,000 ml @ 75 mls/hr 1X ONCE IV Last administered on 03/20/18at 08:38; Start 03/20/18 at 07:30; Stop 03/20/18 at 20:49 ; Status DC Sodium Phosphate 15 mmol/Dextrose 255 ml @ 125 mls/hr PRN DAILY PRN IV PHOS 2.0-2.4; Start 03/20/18 at 15:00 Sodium Phosphate 30 mmol/Dextrose 260 ml @ 125 mls/hr PRN DAILY PRN IV PHOS< 1.9; Start 03/20/18 at 15:00 Sodium Phosphate 30 mmol/Dextrose 260 ml @ 125 mls/hr 1X ONCE IV Last administered on 03/20/18at 17:29; Start 03/20/18 at 16:00; Stop 03/20/18 at 18:04 ; Status DC Sodium Chloride 1,000 ml @ 100 mls/hr Q10H IV Last administered on 03/22/18at 03:20; Start 03/20/18 at 21:00 Potassium Chloride (Klor-Con) 40 meq 1X ONCE PO Last administered on at 16:33; Start 03/21/18 at 14:45; Stop 03/21/18 at 14:46; Status DC Cefpodoxime Proxetil (Vantin) 200 mg BID PO Last administered on 03/22/18at 07: 57; Start 03/21/18 at 21:00 Active Scripts Active Reported Tricor (Fenofibrate Nanocrystallized) 145 Mg Tablet 145 Mg PO DAILY Novolog Flexpen (Insulin Aspart) 100 Unit/1 Ml Insuln.pen 35 Unit SQ BIDAC Humulin N Kwikpen (Nph, Human Insulin Isophane) 100 Unit/1 Ml Insuln.pen 35 Unit SQ BID Vitals/I & O Vital Sign - Last 24 Hours 03/21/18 03/21/18 03/21/18 03/21/18 10:05 11:00 13:17 15:00 Temp 99.8 98.3 99.8 98.3 Pulse 104 101 Resp 20 20 20 16 B/P (MAP) 146/78 (100) 152/77 (102) Pulse Ox 94 95 93 95 O2 Delivery Room Air Room Air Room Air Room Air 03/21/18 03/21/18 03/21/18 03/21/18 16:33 17:11 19:00 20:04 Temp 99.0 99.0 Pulse 105 Resp 20 18 B/P (MAP) 149/76 (100) Pulse Ox 93 93 96 O2 Delivery Room Air Room Air Room Air Room Air 03/21/18 03/21/18 03/22/18 03/22/18 21:31 22:34 00:05 00:05 Temp 99.5 99.5 Pulse 99 Resp 18 17 18 18 B/P (MAP) 144/75 (98) Pulse Ox 96 95 95 95 O2 Delivery Room Air Room Air Room Air Room Air 03/22/18 03/22/18 03/22/18 03/22/18 01:09 02:22 02:45 03:10 Temp 98.2 98.2 Pulse 100 Resp 18 18 19 18 B/P (MAP) 134/76 (95) Pulse Ox 95 95 O2 Delivery Room Air Room Air 03/22/18 03/22/18 03/22/18 03/22/18 06:17 06:18 06:33 06:50 Temp 98.9 98.9 Pulse 103 Resp 18 18 19 B/P (MAP) 145/83 (103) Pulse Ox 95 95 95 95 O2 Delivery Room Air Room Air Room Air Room Air 03/22/18 03/22/18 03/22/18 07:17 08:03 08:51 Pulse Ox 95 95 O2 Delivery Room Air Room Air Room Air Intake and Output 03/21/18 03/21/18 03/22/18 15:00 23:00 07:00 Intake Total 600 ml 1900 ml Balance 600 ml 1900 ml SHIV ROJAS MD Mar 22, 2018 09:13
[2018-03-22 11:00] VITALS: BP 140/72
[2018-03-22 15:00] VITALS: BP 140/72
[2018-03-22] MEDS: ENOXAPARIN 40 MG/0.4 ML SYRINGE. SQ SCH (17:04)
[2018-03-22 19:00] VITALS: BP 157/87
[2018-03-22] MEDS: FAMOTIDINE 20 MG/2 ML VIAL IVP SCH (20:30)
[2018-03-22 23:00] VITALS: BP 157/83
[2018-03-23 03:00] VITALS: BP 152/83
[2018-03-23] MEDS: traMADol 50 MG TABLET PO PRN ×2 (03:30→11:09)
[2018-03-23 05:52] LABS: BASO # 0.1 x10^3/uL (0.0-0.2); BASO % 1 % (0-3); EOS # 0.2 x10^3/uL (0.0-0.7); EOS % 2 % (0-3); LYMPH # 0.9 x10^3/uL (1.0-4.8); LYMPH % 9 % (24-48); MEAN CORPUSCULAR HEMOGLOBIN 29 pg (25-35); MEAN CORPUSCULAR HGB CONC 33 g/dL (31-37); MEAN CORPUSCULAR VOLUME 86 fL (79-100); MONO # 0.7 x10^3/uL (0.0-1.1); MONO % 8 % (0-9); NEUT # 7.9 x10^3uL (1.8-7.7); NEUT % 81 % (31-73); PLATELET COUNT 282 x10^3/uL (140-400); RED BLOOD COUNT 3.85 x10^6/uL (3.50-5.40); RED CELL DISTRIBUTION WIDTH 13.9 % (11.5-14.5); WHITE BLOOD COUNT 9.7 x10^3/uL (4.0-11.0)
[2018-03-23 06:05] LABS: CALCIUM 8.6 mg/dL (8.5-10.1); CREATININE 0.4 mg/dL (0.6-1.0); GFR 180.6
[2018-03-23 06:09] LABS: POTASSIUM 2.8 mmol/L (3.5-5.1)
[2018-03-23] MEDS: MORPHINE SULFATE 2 MG/ML VIAL. IV PRN (06:26)
[2018-03-23] MEDS ORDERED: POTASSIUM CHLORIDE 20 MEQ TABLET.ER. PO ONE ×2 (06:30→13:45)
[2018-03-23 07:00] VITALS: BP 166/90
[2018-03-23] MEDS: INSULIN LISPRO 300 UNITS/3 ML INSULN.PEN. SQ SCH ×4 (07:30→11:42)
[2018-03-23] MEDS: LACTOBACILLUS RHAMNOSUS GG 1 CAPSULE. PO SCH (08:59)
[2018-03-23] MEDS: CEFPODOXIME PROXETIL 100 MG TABLET. PO SCH (08:59)
[2018-03-23 11:00] VITALS: BP 155/90
[2018-03-23] MEDS: IV NORMAL SALINE 1000ML BAG 1,000 ML IV SCH (11:09)
--- NOTE | 2018-03-23 11:17 | PDOC ---
Subjective: Subjective: Feeling better. Less abd pain. Eating full liquids - small amounts at a time. No n/v. Objective: Vital Signs: Vital Signs Date Time Temp Pulse Resp B/P (MAP) Pulse Ox O2 Delivery O2 Flow Rate FiO2 03/23/18 11:09 18 94 Room Air 03/23/18 11:00 98.4 96 155/90 (111) 98.4 Labs: Laboratory Tests Test 03/22/18 11:17 03/22/18 16:31 03/22/18 20:31 03/23/18 04:20 Glucose (Fingerstick) 208 mg/dL 157 mg/dL 190 mg/dL White Blood Count 9.7 x10^3/uL Red Blood Count 3.85 x10^6/uL Hemoglobin 11.0 g/dL Hematocrit 33.0 % Mean Corpuscular Volume 86 fL Mean Corpuscular Hemoglobin 29 pg Mean Corpuscular Hemoglobin Concent 33 g/dL Red Cell Distribution Width 13.9 % Platelet Count 282 x10^3/uL Neutrophils (%) (Auto) 81 % Lymphocytes (%) (Auto) 9 % Monocytes (%) (Auto) 8 % Eosinophils (%) (Auto) 2 % Basophils (%) (Auto) 1 % Neutrophils # (Auto) 7.9 x10^3uL Lymphocytes # (Auto) 0.9 x10^3/uL Monocytes # (Auto) 0.7 x10^3/uL Eosinophils # (Auto) 0.2 x10^3/uL Basophils # (Auto) 0.1 x10^3/uL Sodium Level 133 mmol/L Potassium Level 2.8 mmol/L Chloride Level 98 mmol/L Carbon Dioxide Level 18 mmol/L Anion Gap 17 Blood Urea Nitrogen 2 mg/dL Creatinine 0.4 mg/dL Estimated GFR (Cockcroft-Gault) 180.6 Glucose Level 259 mg/dL Calcium Level 8.6 mg/dL Lipase 692 U/L Test 03/23/18 07:26 03/23/18 10:50 Glucose (Fingerstick) 261 mg/dL 211 mg/dL PE: GEN: NAD LUNGS: CTAB HEART: RRR ABD: NABS, S/ND/NT NEURO/PSYCH: A & O 3 A/P: Recurrent pancreatitis Hypertriglyceridemia, hypokalemia, hyponatremia, HTN - defer to primary -- GI symptoms improved, taking more PO. 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 DC per primary. Need treatment for lipids. MONICA HECK Mar 23, 2018 11:17
--- NOTE | 2018-03-23 12:14 | PDOC ---
PROGRESS NOTES Chief Complaint Chief Complaint Acute recurrent pancreatitis H/o pancreatitis with HLD DKA, anion gap closed, resolved T2DM on insulin Htn urgency Elevated transaminitis H/o cholecystectomy HLD Hypophosphatemia Hypokalemia on replacement Possible UTI pt reports mod improvement today iv pain control, d/c replace lytes, k gi following ct delayed due to improved symptoms accuchecks serum lipase full liquids, no fried foods, no dairy home today d/c iv protonix History of Present Illness History of Present Illness Pt seen and examined in ICU Laying in bed, calm, cooperative Discussed with RN Vitals Vitals Vital Signs Date Time Temp Pulse Resp B/P (MAP) Pulse Ox O2 Delivery O2 Flow Rate FiO2 03/23/18 11:09 18 94 Room Air 03/23/18 11:00 98.4 96 155/90 (111) 98.4 Physical Exam General: Alert, Oriented X3, Cooperative, No acute distress, mild distress Heart: Regular rate, Normal S1, Normal S2, No murmurs Lungs: Clear Abdomen: Normal bowel sounds, Soft, Other (less tender, no rebound) Extremities: No clubbing, No cyanosis, No edema Skin: No rashes, No breakdown Labs LABS Laboratory Tests Test 03/22/18 16:31 03/22/18 20:31 03/23/18 04:20 03/23/18 07:26 Glucose (Fingerstick) 157 mg/dL (70-99) 190 mg/dL (70-99) 261 mg/dL (70-99) White Blood Count 9.7 x10^3/uL (4.0-11.0) Red Blood Count 3.85 x10^6/uL (3.50-5.40) Hemoglobin 11.0 g/dL (12.0-15.5) Hematocrit 33.0 % (36.0-47.0) Mean Corpuscular Volume 86 fL (79-100) Mean Corpuscular Hemoglobin 29 pg (25-35) Mean Corpuscular Hemoglobin Concent 33 g/dL (31-37) Red Cell Distribution Width 13.9 % (11.5-14.5) Platelet Count 282 x10^3/uL (140-400) Neutrophils (%) (Auto) 81 % (31-73) Lymphocytes (%) (Auto) 9 % (24-48) Monocytes (%) (Auto) 8 % (0-9) Eosinophils (%) (Auto) 2 % (0-3) Basophils (%) (Auto) 1 % (0-3) Neutrophils # (Auto) 7.9 x10^3uL (1.8-7.7) Lymphocytes # (Auto) 0.9 x10^3/uL (1.0-4.8) Monocytes # (Auto) 0.7 x10^3/uL (0.0-1.1) Eosinophils # (Auto) 0.2 x10^3/uL (0.0-0.7) Basophils # (Auto) 0.1 x10^3/uL (0.0-0.2) Sodium Level 133 mmol/L (136-145) Potassium Level 2.8 mmol/L (3.5-5.1) Chloride Level 98 mmol/L (98-107) Carbon Dioxide Level 18 mmol/L (21-32) Anion Gap 17 (6-14) Blood Urea Nitrogen 2 mg/dL (7-20) Creatinine 0.4 mg/dL (0.6-1.0) Estimated GFR (Cockcroft-Gault) 180.6 Glucose Level 259 mg/dL (70-99) Calcium Level 8.6 mg/dL (8.5-10.1) Lipase 692 U/L (73-393) Test 03/23/18 10:50 Glucose (Fingerstick) 211 mg/dL (70-99) Assessment and Plan Assessmemt and Plan Problems Medical Problems: (1) Acute pancreatitis Status: Acute (2) DKA (diabetic ketoacidoses) Status: Acute Comment Review of Relevant I have reviewed the following items destiny (where applicable) has been applied. Labs Laboratory Tests Test 03/21/18 16:24 03/21/18 20:46 03/22/18 04:00 03/22/18 07:43 Glucose (Fingerstick) 194 mg/dL (70-99) 203 mg/dL (70-99) 232 mg/dL (70-99) White Blood Count 9.9 x10^3/uL (4.0-11.0) Red Blood Count 3.69 x10^6/uL (3.50-5.40) Hemoglobin 10.8 g/dL (12.0-15.5) Hematocrit 31.6 % (36.0-47.0) Mean Corpuscular Volume 86 fL (79-100) Mean Corpuscular Hemoglobin 29 pg (25-35) Mean Corpuscular Hemoglobin Concent 34 g/dL (31-37) Red Cell Distribution Width 14.0 % (11.5-14.5) Platelet Count 254 x10^3/uL (140-400) Neutrophils (%) (Auto) 79 % (31-73) Lymphocytes (%) (Auto) 10 % (24-48) Monocytes (%) (Auto) 8 % (0-9) Eosinophils (%) (Auto) 2 % (0-3) Basophils (%) (Auto) 1 % (0-3) Neutrophils # (Auto) 7.8 x10^3uL (1.8-7.7) Lymphocytes # (Auto) 1.0 x10^3/uL (1.0-4.8) Monocytes # (Auto) 0.8 x10^3/uL (0.0-1.1) Eosinophils # (Auto) 0.2 x10^3/uL (0.0-0.7) Basophils # (Auto) 0.1 x10^3/uL (0.0-0.2) Sodium Level 133 mmol/L (136-145) Potassium Level 3.2 mmol/L (3.5-5.1) Chloride Level 99 mmol/L (98-107) Carbon Dioxide Level 17 mmol/L (21-32) Anion Gap 17 (6-14) Blood Urea Nitrogen 2 mg/dL (7-20) Creatinine 0.4 mg/dL (0.6-1.0) Estimated GFR (Cockcroft-Gault) 180.6 Glucose Level 249 mg/dL (70-99) Calcium Level 8.0 mg/dL (8.5-10.1) Test 03/22/18 11:17 03/22/18 16:31 03/22/18 20:31 03/23/18 04:20 Glucose (Fingerstick) 208 mg/dL (70-99) 157 mg/dL (70-99) 190 mg/dL (70-99) White Blood Count 9.7 x10^3/uL (4.0-11.0) Red Blood Count 3.85 x10^6/uL (3.50-5.40) Hemoglobin 11.0 g/dL (12.0-15.5) Hematocrit 33.0 % (36.0-47.0) Mean Corpuscular Volume 86 fL (79-100) Mean Corpuscular Hemoglobin 29 pg (25-35) Mean Corpuscular Hemoglobin Concent 33 g/dL (31-37) Red Cell Distribution Width 13.9 % (11.5-14.5) Platelet Count 282 x10^3/uL (140-400) Neutrophils (%) (Auto) 81 % (31-73) Lymphocytes (%) (Auto) 9 % (24-48) Monocytes (%) (Auto) 8 % (0-9) Eosinophils (%) (Auto) 2 % (0-3) Basophils (%) (Auto) 1 % (0-3) Neutrophils # (Auto) 7.9 x10^3uL (1.8-7.7) Lymphocytes # (Auto) 0.9 x10^3/uL (1.0-4.8) Monocytes # (Auto) 0.7 x10^3/uL (0.0-1.1) Eosinophils # (Auto) 0.2 x10^3/uL (0.0-0.7) Basophils # (Auto) 0.1 x10^3/uL (0.0-0.2) Sodium Level 133 mmol/L (136-145) Potassium Level 2.8 mmol/L (3.5-5.1) Chloride Level 98 mmol/L (98-107) Carbon Dioxide Level 18 mmol/L (21-32) Anion Gap 17 (6-14) Blood Urea Nitrogen 2 mg/dL (7-20) Creatinine 0.4 mg/dL (0.6-1.0) Estimated GFR (Cockcroft-Gault) 180.6 Glucose Level 259 mg/dL (70-99) Calcium Level 8.6 mg/dL (8.5-10.1) Lipase 692 U/L (73-393) Test 03/23/18 07:26 03/23/18 10:50 Glucose (Fingerstick) 261 mg/dL (70-99) 211 mg/dL (70-99) Laboratory Tests Test 03/22/18 16:31 03/22/18 20:31 03/23/18 04:20 03/23/18 07:26 Glucose (Fingerstick) 157 mg/dL (70-99) 190 mg/dL (70-99) 261 mg/dL (70-99) White Blood Count 9.7 x10^3/uL (4.0-11.0) Red Blood Count 3.85 x10^6/uL (3.50-5.40) Hemoglobin 11.0 g/dL (12.0-15.5) Hematocrit 33.0 % (36.0-47.0) Mean Corpuscular Volume 86 fL (79-100) Mean Corpuscular Hemoglobin 29 pg (25-35) Mean Corpuscular Hemoglobin Concent 33 g/dL (31-37) Red Cell Distribution Width 13.9 % (11.5-14.5) Platelet Count 282 x10^3/uL (140-400) Neutrophils (%) (Auto) 81 % (31-73) Lymphocytes (%) (Auto) 9 % (24-48) Monocytes (%) (Auto) 8 % (0-9) Eosinophils (%) (Auto) 2 % (0-3) Basophils (%) (Auto) 1 % (0-3) Neutrophils # (Auto) 7.9 x10^3uL (1.8-7.7) Lymphocytes # (Auto) 0.9 x10^3/uL (1.0-4.8) Monocytes # (Auto) 0.7 x10^3/uL (0.0-1.1) Eosinophils # (Auto) 0.2 x10^3/uL (0.0-0.7) Basophils # (Auto) 0.1 x10^3/uL (0.0-0.2) Sodium Level 133 mmol/L (136-145) Potassium Level 2.8 mmol/L (3.5-5.1) Chloride Level 98 mmol/L (98-107) Carbon Dioxide Level 18 mmol/L (21-32) Anion Gap 17 (6-14) Blood Urea Nitrogen 2 mg/dL (7-20) Creatinine 0.4 mg/dL (0.6-1.0) Estimated GFR (Cockcroft-Gault) 180.6 Glucose Level 259 mg/dL (70-99) Calcium Level 8.6 mg/dL (8.5-10.1) Lipase 692 U/L (73-393) Test 03/23/18 10:50 Glucose (Fingerstick) 211 mg/dL (70-99) Microbiology 03/17/18 Urine Culture - Final, Complete 03/17/18 Urine Culture Result 1 (VELMA) - Final, Complete Medications Current Medications Sodium Chloride 1,000 ml @ 1,000 mls/hr 1X ONCE IV Last administered on 03/17at 08:41; Start 03/17/18 at 08:15; Stop 03/17/18 at 09:14; Status DC Ondansetron HCl (Zofran) 4 mg 1X ONCE IV Last administered on 03/17/18at 08:40 ; Start 03/17/18 at 08:15; Stop 03/17/18 at 08:16; Status DC Morphine Sulfate (Morphine Sulfate) 5 mg 1X ONCE IV Last administered on 03/17at 08:40; Start 03/17/18 at 08:15; Stop 03/17/18 at 08:16; Status DC Iohexol (Omnipaque 300 Mg/ml) 75 ml 1X ONCE IV Last administered on at 10:19; Start 03/17/18 at 09:00; Stop 03/17/18 at 09:01; Status DC Info (CONTRAST GIVEN -- Rx MONITORING) 1 each PRN DAILY PRN MC SEE COMMENTS; Start 03/17/18 at 09:00; Stop 03/19/18 at 08:59; Status DC Morphine Sulfate (Morphine Sulfate) 5 mg 1X ONCE IV Last administered on 03/17at 09:25; Start 03/17/18 at 09:15; Stop 03/17/18 at 09:16; Status DC Prochlorperazine Edisylate (Compazine) 10 mg 1X ONCE IV Last administered on 03/17/18at 09:25; Start 03/17/18 at 09:15; Stop 03/17/18 at 09:16; Status DC Sodium Chloride 1,000 ml @ 1,000 mls/hr Q1H IV ; Start 03/17/18 at 10:58; Stop 03/17/18 at 11:57; Status DC Insulin Human Regular 150 unit/ Sodium Chloride 151.5 ml @ 0 mls/hr CONT PRN PRN IV PER PROTOCOL; Start 03/17/18 at 11:00; Status Cancel Insulin Human Regular 150 ml @ 0 mls/hr CONT PRN PRN IV PER PROTOCOL Last administered on 03/17/18at 15:23; Start 03/17/18 at 11:15; Stop 03/17/18 at 13 :01; Status DC Insulin Human Regular 150 unit/ Sodium Chloride 151.5 ml @ 0 mls/hr CONT PRN PRN IV PER PROTOCOL Last administered on 03/17/18at 18:34; Start 03/17/18 at 18 :00; Stop 03/18/18 at 03:41; Status DC Ondansetron HCl (Zofran) 4 mg PRN Q8HRS PRN IV NAUSEA/VOMITING Last administered on 03/17/18at 14:46; Start 03/17/18 at 11:45; Stop 03/18/18 at 11 :44; Status DC Morphine Sulfate (Morphine Sulfate) 4 mg PRN Q2HR PRN IV PAIN Last administered on 03/18/18at 06:24; Start 03/17/18 at 11:45; Stop 03/18/18 at 11 :44; Status DC Sodium Chloride 1,000 ml @ 125 mls/hr 1X ONCE IV Last administered on at 15:21; Start 03/17/18 at 11:45; Stop 03/17/18 at 19:44; Status DC Famotidine (Pepcid Vial) 20 mg QHS IVP Last administered on 03/22/18at 20:30; Start 03/17/18 at 21:00; Stop 03/23/18 at 11:17; Status DC Enoxaparin Sodium (Lovenox 40mg Syringe) 40 mg Q24H SQ Last administered on 03/22/18at 17:04; Start 03/17/18 at 16:00 Acetaminophen (Tylenol) 650 mg PRN Q6HRS PRN PO FEVER Last administered on at 23:37; Start 03/17/18 at 14:30 Ondansetron HCl (Zofran) 4 mg PRN Q6HRS PRN IV NAUSEA/VOMITING Last administered on 03/19/18at 12:15; Start 03/17/18 at 14:30 Morphine Sulfate (Morphine Sulfate) 2 mg PRN Q2HR PRN IV MODERATE TO SEVERE PAIN Last administered on 03/23/18at 06:26; Start 03/17/18 at 14:30 Tramadol HCl (Ultram) 50 mg PRN Q6HRS PRN PO MILD TO MODERATE PAIN Last administered on 03/23/18at 11:09; Start 03/17/18 at 14:30 Docusate Sodium (Colace) 100 mg PRN DAILY PRN PO CONSTIPATION Last administered on 03/18/18at 18:05; Start 03/17/18 at 14:30 Labetalol HCl (Normodyne Iv Push) 20 mg PRN Q2HR PRN IVP HYPERTENSION, SEE COMMENTS; Start 03/17/18 at 14:30 Ceftriaxone Sodium 1 gm/ Dextrose 50 ml @ 100 mls/hr Q24H IV ; Start 03/17/18 at 14:30; Status UNV Potassium Phosphate 10 mmol/ Dextrose 253.3333 ml @ 126.... Q2H IV Last administered on 03/17/18at 17:30; Start 03/17/18 at 15:30; Stop 03/17/18 at 19 :29; Status DC Ceftriaxone Sodium (Rocephin) 1 gm Q24H IVP Last administered on 03/21/18at 17: 12; Start 03/17/18 at 15:00; Stop 03/21/18 at 17:00; Status DC Influenza Virus Vaccine (Afluria Trivalent [id number] Syringe) 0.5 ml ONCE ONCE VAX IM Last administered on 03/18/18at 08:18; Start 03/17/18 at 17:00; Stop 03/17/18 at 17:01; Status DC Sodium Chloride 1,000 ml @ 500 mls/hr Q2H IV ; Start 03/17/18 at 19:10; Stop 03/17/18 at 21:09; Status Cancel Magnesium Sulfate/ Dextrose 100 ml @ 25 mls/hr PRN DAILY PRN IV MAG < 1.8; Start 03/18/18 at 09:00; Stop 03/18/18 at 09:00; Status DC Sodium Phosphate 40 mmol/Sodium Chloride 513.3333 ml @ 83.3 mls/hr 1X PRN PRN IV SEE COMMENTS; Start 03/17/18 at 19:15; Stop 03/18/18 at 03:41; Status DC Sodium Phosphate 20 mmol/Dextrose 256.6667 ml @ 62.5 mls/hr 1X PRN PRN IV SEE COMMENTS Last administered on 03/17/18at 21:41; Start 03/17/18 at 19:15; Stop 03/18/18 at 03:41; Status DC Sodium Phosphate 10 mmol/Dextrose 253.3333 ml @ 62.5 mls/hr 1X PRN PRN IV SEE COMMENTS; Start 03/17/18 at 19:15; Stop 03/18/18 at 03:41; Status DC Sodium Chloride 1,000 ml @ 250 mls/hr Q4H IV Last administered on 03/17/18at 19:29; Start 03/17/18 at 19:18; Stop 03/17/18 at 21:33; Status DC Potassium Chloride/Dextrose/ Sod Cl 1,000 ml @ 250 mls/hr Q4H IV Last administered on 03/17/18at 21:35; Start 03/17/18 at 22:00; Stop 03/18/18 at 01 :59; Status DC Sodium Chloride 1,000 ml @ 250 mls/hr Q4H IV Last administered on 03/18/18at 01:40; Start 03/18/18 at 01:40; Stop 03/18/18 at 03:38; Status DC Potassium Chloride 40 meq/ Sodium Chloride 1,020 ml @ 250 mls/hr Q4H5M IV Last administered on 03/18/18at 03:54; Start 03/18/18 at 04:00; Stop 03/18/18 at 08:04; Status DC Sodium Chloride 1,000 ml @ 100 mls/hr Q10H IV Last administered on 03/19/18at 20:58; Start 03/18/18 at 08:00; Stop 03/20/18 at 15:03; Status DC Insulin Human Lispro (HumaLOG) 0-7 UNITS QIDACHS SQ ; Start 03/18/18 at 07:30; Stop 03/18/18 at 07:30; Status DC Dextrose (Dextrose 50%-Water Syringe) 12.5 gm PRN Q15MIN PRN IV SEE COMMENTS; Start 03/18/18 at 03:45 Insulin Human Lispro (HumaLOG) 0-7 UNITS Q6HRS SQ Last administered on at 18:11; Start 03/18/18 at 07:30; Stop 03/18/18 at 20:03; Status DC Insulin Glargine (Lantus) 30 units 1X ONCE SQ Last administered on 03/18/18at 22:02; Start 03/18/18 at 20:00; Stop 03/18/18 at 20:06; Status DC Insulin Human Lispro (HumaLOG) 10 units TIDAC SQ Last administered on at 11:40; Start 03/19/18 at 07:30 Insulin Human Lispro (HumaLOG) 0-9 UNITS TIDACHC SQ Last administered on at 11:42; Start 03/18/18 at 21:00 Lactobacillus Rhamnosus (Culturelle) 1 cap BID PO Last administered on at 08:59; Start 03/19/18 at 21:00 Potassium Chloride (Klor-Con) 40 meq 1X ONCE PO Last administered on at 08:22; Start 03/20/18 at 07:15; Stop 03/20/18 at 07:16; Status DC Potassium Chloride/Sodium Chloride 1,000 ml @ 75 mls/hr 1X ONCE IV Last administered on 03/20/18at 08:38; Start 03/20/18 at 07:30; Stop 03/20/18 at 20:49 ; Status DC Sodium Phosphate 15 mmol/Dextrose 255 ml @ 125 mls/hr PRN DAILY PRN IV PHOS 2.0-2.4; Start 03/20/18 at 15:00 Sodium Phosphate 30 mmol/Dextrose 260 ml @ 125 mls/hr PRN DAILY PRN IV PHOS< 1.9; Start 03/20/18 at 15:00 Sodium Phosphate 30 mmol/Dextrose 260 ml @ 125 mls/hr 1X ONCE IV Last administered on 03/20/18at 17:29; Start 03/20/18 at 16:00; Stop 03/20/18 at 18:04 ; Status DC Sodium Chloride 1,000 ml @ 100 mls/hr Q10H IV Last administered on 03/23/18at 11:09; Start 03/20/18 at 21:00 Potassium Chloride (Klor-Con) 40 meq 1X ONCE PO Last administered on at 16:33; Start 03/21/18 at 14:45; Stop 03/21/18 at 14:46; Status DC Cefpodoxime Proxetil (Vantin) 200 mg BID PO Last administered on 03/23/18at 08: 59; Start 03/21/18 at 21:00 Potassium Chloride (Klor-Con) 40 meq 1X ONCE PO Last administered on at 06:26; Start 03/23/18 at 06:30; Stop 03/23/18 at 06:31; Status DC Famotidine (Pepcid) 20 mg QHS PO ; Start 03/23/18 at 21:00 Active Scripts Active Reported Tricor (Fenofibrate Nanocrystallized) 145 Mg Tablet 145 Mg PO DAILY Novolog Flexpen (Insulin Aspart) 100 Unit/1 Ml Insuln.pen 35 Unit SQ BIDAC Humulin N Kwikpen (Nph, Human Insulin Isophane) 100 Unit/1 Ml Insuln.pen 35 Unit SQ BID Vitals/I & O Vital Sign - Last 24 Hours 03/22/18 03/22/18 03/22/18 03/22/18 14:13 14:16 15:00 16:05 Temp 97.5 97.5 Pulse 104 Resp 18 18 18 18 B/P (MAP) 140/72 (94) Pulse Ox 95 95 94 94 O2 Delivery Room Air Room Air Room Air 03/22/18 03/22/18 03/22/18 03/22/18 18:19 19:00 20:00 21:20 Temp 99.2 99.2 Pulse 101 Resp 18 B/P (MAP) 157/87 (110) Pulse Ox 94 95 O2 Delivery Room Air Room Air Room Air Room Air 03/22/18 03/22/18 03/23/18 03/23/18 23:00 23:50 03:00 03:30 Temp 99.6 98.3 99.6 98.3 Pulse 98 99 Resp 16 18 B/P (MAP) 157/83 (107) 152/83 (106) Pulse Ox 94 94 94 O2 Delivery Room Air Room Air Room Air Room Air 03/23/18 03/23/18 03/23/18 03/23/18 04:58 06:26 07:00 07:15 Temp 97.9 97.9 Pulse 96 Resp 20 18 B/P (MAP) 166/90 (115) Pulse Ox 94 94 O2 Delivery Room Air Room Air Room Air Room Air 03/23/18 03/23/18 11:00 11:09 Temp 98.4 98.4 Pulse 96 Resp 20 18 B/P (MAP) 155/90 (111) Pulse Ox 94 94 O2 Delivery Room Air Room Air Intake and Output 03/22/18 03/22/18 03/23/18 15:00 23:00 07:00 Intake Total 500 ml 2050 ml Balance 500 ml 2050 ml SHIV ROJAS MD Mar 23, 2018 12:14
--- NOTE | 2018-03-23 13:45 | PDOC3 ---
Discharge Summary Date of Admission: Mar 17, 2018 Date of Discharge: Mar 23, 2018 Follow-Up: 3-5 days Admitting Diagnosis comment: Chief Complaint Chief Complaint Acute recurrent pancreatitis H/o pancreatitis with HLD DKA, anion gap closed, resolved T2DM on insulin Htn urgency Elevated transaminitis H/o cholecystectomy HLD Hypophosphatemia Hypokalemia on replacement Possible UTI hyperlipidemia pt reports mod improvement today iv pain control, d/c replace lytes, k gi following ct delayed due to improved symptoms accuchecks serum lipase full liquids, no fried foods, no dairy home today d/c iv protonix see pcp in next few days, needs lipids lowered History of Present Illness History of Present Illness Pt seen and examined Laying in bed, calm, cooperative Discussed with RN Vitals Vitals Vital Signs Date Time Temp Pulse Resp B/P (MAP) Pulse Ox O2 Delivery O2 Flow Rate FiO2 03/23/18 11:09 18 94 Room Air 03/23/18 11:00 98.4 96 155/90 (111) 98.4 Physical Exam General: Alert, Oriented X3, Cooperative, No acute distress, mild distress Heart: Regular rate, Normal S1, Normal S2, No murmurs Lungs: Clear Abdomen: Normal bowel sounds, Soft, Other (less tender, no rebound) Extremities: No clubbing, No cyanosis, No edema Skin: No rashes, No breakdown Labs FINAL DIAGNOSIS Problems Medical Problems: (1) Acute pancreatitis Status: Acute (2) DKA (diabetic ketoacidoses) Status: Acute Brief Hospital Course Ms. Melchor is a 38 old [sex] who presented with [ ] Discharge Medications Current Medications Sodium Chloride 1,000 ml @ 1,000 mls/hr 1X ONCE IV Last administered on 03/17at 08:41; Start 03/17/18 at 08:15; Stop 03/17/18 at 09:14; Status DC Ondansetron HCl (Zofran) 4 mg 1X ONCE IV Last administered on 03/17/18at 08:40 ; Start 03/17/18 at 08:15; Stop 03/17/18 at 08:16; Status DC Morphine Sulfate (Morphine Sulfate) 5 mg 1X ONCE IV Last administered on 03/17at 08:40; Start 03/17/18 at 08:15; Stop 03/17/18 at 08:16; Status DC Iohexol (Omnipaque 300 Mg/ml) 75 ml 1X ONCE IV Last administered on at 10:19; Start 03/17/18 at 09:00; Stop 03/17/18 at 09:01; Status DC Info (CONTRAST GIVEN -- Rx MONITORING) 1 each PRN DAILY PRN MC SEE COMMENTS; Start 03/17/18 at 09:00; Stop 03/19/18 at 08:59; Status DC Morphine Sulfate (Morphine Sulfate) 5 mg 1X ONCE IV Last administered on 03/17at 09:25; Start 03/17/18 at 09:15; Stop 03/17/18 at 09:16; Status DC Prochlorperazine Edisylate (Compazine) 10 mg 1X ONCE IV Last administered on 03/17/18at 09:25; Start 03/17/18 at 09:15; Stop 03/17/18 at 09:16; Status DC Sodium Chloride 1,000 ml @ 1,000 mls/hr Q1H IV ; Start 03/17/18 at 10:58; Stop 03/17/18 at 11:57; Status DC Insulin Human Regular 150 unit/ Sodium Chloride 151.5 ml @ 0 mls/hr CONT PRN PRN IV PER PROTOCOL; Start 03/17/18 at 11:00; Status Cancel Insulin Human Regular 150 ml @ 0 mls/hr CONT PRN PRN IV PER PROTOCOL Last administered on 03/17/18at 15:23; Start 03/17/18 at 11:15; Stop 03/17/18 at 13 :01; Status DC Insulin Human Regular 150 unit/ Sodium Chloride 151.5 ml @ 0 mls/hr CONT PRN PRN IV PER PROTOCOL Last administered on 03/17/18at 18:34; Start 03/17/18 at 18 :00; Stop 03/18/18 at 03:41; Status DC Ondansetron HCl (Zofran) 4 mg PRN Q8HRS PRN IV NAUSEA/VOMITING Last administered on 03/17/18at 14:46; Start 03/17/18 at 11:45; Stop 03/18/18 at 11 :44; Status DC Morphine Sulfate (Morphine Sulfate) 4 mg PRN Q2HR PRN IV PAIN Last administered on 03/18/18at 06:24; Start 03/17/18 at 11:45; Stop 03/18/18 at 11 :44; Status DC Sodium Chloride 1,000 ml @ 125 mls/hr 1X ONCE IV Last administered on at 15:21; Start 03/17/18 at 11:45; Stop 03/17/18 at 19:44; Status DC Famotidine (Pepcid Vial) 20 mg QHS IVP Last administered on 03/22/18at 20:30; Start 03/17/18 at 21:00; Stop 03/23/18 at 11:17; Status DC Enoxaparin Sodium (Lovenox 40mg Syringe) 40 mg Q24H SQ Last administered on 03/22/18at 17:04; Start 03/17/18 at 16:00 Acetaminophen (Tylenol) 650 mg PRN Q6HRS PRN PO FEVER Last administered on at 23:37; Start 03/17/18 at 14:30 Ondansetron HCl (Zofran) 4 mg PRN Q6HRS PRN IV NAUSEA/VOMITING Last administered on 03/19/18at 12:15; Start 03/17/18 at 14:30 Morphine Sulfate (Morphine Sulfate) 2 mg PRN Q2HR PRN IV MODERATE TO SEVERE PAIN Last administered on 03/23/18at 06:26; Start 03/17/18 at 14:30 Tramadol HCl (Ultram) 50 mg PRN Q6HRS PRN PO MILD TO MODERATE PAIN Last administered on 03/23/18at 11:09; Start 03/17/18 at 14:30 Docusate Sodium (Colace) 100 mg PRN DAILY PRN PO CONSTIPATION Last administered on 03/18/18at 18:05; Start 03/17/18 at 14:30 Labetalol HCl (Normodyne Iv Push) 20 mg PRN Q2HR PRN IVP HYPERTENSION, SEE COMMENTS; Start 03/17/18 at 14:30 Ceftriaxone Sodium 1 gm/ Dextrose 50 ml @ 100 mls/hr Q24H IV ; Start 03/17/18 at 14:30; Status UNV Potassium Phosphate 10 mmol/ Dextrose 253.3333 ml @ 126.... Q2H IV Last administered on 03/17/18at 17:30; Start 03/17/18 at 15:30; Stop 03/17/18 at 19 :29; Status DC Ceftriaxone Sodium (Rocephin) 1 gm Q24H IVP Last administered on 03/21/18at 17: 12; Start 03/17/18 at 15:00; Stop 03/21/18 at 17:00; Status DC Influenza Virus Vaccine (Afluria Trivalent [id number] Syringe) 0.5 ml ONCE ONCE VAX IM Last administered on 03/18/18at 08:18; Start 03/17/18 at 17:00; Stop 03/17/18 at 17:01; Status DC Sodium Chloride 1,000 ml @ 500 mls/hr Q2H IV ; Start 03/17/18 at 19:10; Stop 03/17/18 at 21:09; Status Cancel Magnesium Sulfate/ Dextrose 100 ml @ 25 mls/hr PRN DAILY PRN IV MAG < 1.8; Start 03/18/18 at 09:00; Stop 03/18/18 at 09:00; Status DC Sodium Phosphate 40 mmol/Sodium Chloride 513.3333 ml @ 83.3 mls/hr 1X PRN PRN IV SEE COMMENTS; Start 03/17/18 at 19:15; Stop 03/18/18 at 03:41; Status DC Sodium Phosphate 20 mmol/Dextrose 256.6667 ml @ 62.5 mls/hr 1X PRN PRN IV SEE COMMENTS Last administered on 03/17/18at 21:41; Start 03/17/18 at 19:15; Stop 03/18/18 at 03:41; Status DC Sodium Phosphate 10 mmol/Dextrose 253.3333 ml @ 62.5 mls/hr 1X PRN PRN IV SEE COMMENTS; Start 03/17/18 at 19:15; Stop 03/18/18 at 03:41; Status DC Sodium Chloride 1,000 ml @ 250 mls/hr Q4H IV Last administered on 03/17/18at 19:29; Start 03/17/18 at 19:18; Stop 03/17/18 at 21:33; Status DC Potassium Chloride/Dextrose/ Sod Cl 1,000 ml @ 250 mls/hr Q4H IV Last administered on 03/17/18at 21:35; Start 03/17/18 at 22:00; Stop 03/18/18 at 01 :59; Status DC Sodium Chloride 1,000 ml @ 250 mls/hr Q4H IV Last administered on 03/18/18at 01:40; Start 03/18/18 at 01:40; Stop 03/18/18 at 03:38; Status DC Potassium Chloride 40 meq/ Sodium Chloride 1,020 ml @ 250 mls/hr Q4H5M IV Last administered on 03/18/18at 03:54; Start 03/18/18 at 04:00; Stop 03/18/18 at 08:04; Status DC Sodium Chloride 1,000 ml @ 100 mls/hr Q10H IV Last administered on 03/19/18at 20:58; Start 03/18/18 at 08:00; Stop 03/20/18 at 15:03; Status DC Insulin Human Lispro (HumaLOG) 0-7 UNITS QIDACHS SQ ; Start 03/18/18 at 07:30; Stop 03/18/18 at 07:30; Status DC Dextrose (Dextrose 50%-Water Syringe) 12.5 gm PRN Q15MIN PRN IV SEE COMMENTS; Start 03/18/18 at 03:45 Insulin Human Lispro (HumaLOG) 0-7 UNITS Q6HRS SQ Last administered on at 18:11; Start 03/18/18 at 07:30; Stop 03/18/18 at 20:03; Status DC Insulin Glargine (Lantus) 30 units 1X ONCE SQ Last administered on 03/18/18at 22:02; Start 03/18/18 at 20:00; Stop 03/18/18 at 20:06; Status DC Insulin Human Lispro (HumaLOG) 10 units TIDAC SQ Last administered on at 11:40; Start 03/19/18 at 07:30 Insulin Human Lispro (HumaLOG) 0-9 UNITS TIDACHC SQ Last administered on at 11:42; Start 03/18/18 at 21:00 Lactobacillus Rhamnosus (Culturelle) 1 cap BID PO Last administered on at 08:59; Start 03/19/18 at 21:00 Potassium Chloride (Klor-Con) 40 meq 1X ONCE PO Last administered on at 08:22; Start 03/20/18 at 07:15; Stop 03/20/18 at 07:16; Status DC Potassium Chloride/Sodium Chloride 1,000 ml @ 75 mls/hr 1X ONCE IV Last administered on 03/20/18at 08:38; Start 03/20/18 at 07:30; Stop 03/20/18 at 20:49 ; Status DC Sodium Phosphate 15 mmol/Dextrose 255 ml @ 125 mls/hr PRN DAILY PRN IV PHOS 2.0-2.4; Start 03/20/18 at 15:00 Sodium Phosphate 30 mmol/Dextrose 260 ml @ 125 mls/hr PRN DAILY PRN IV PHOS< 1.9; Start 03/20/18 at 15:00 Sodium Phosphate 30 mmol/Dextrose 260 ml @ 125 mls/hr 1X ONCE IV Last administered on 03/20/18at 17:29; Start 03/20/18 at 16:00; Stop 03/20/18 at 18:04 ; Status DC Sodium Chloride 1,000 ml @ 100 mls/hr Q10H IV Last administered on 03/23/18at 11:09; Start 03/20/18 at 21:00 Potassium Chloride (Klor-Con) 40 meq 1X ONCE PO Last administered on at 16:33; Start 03/21/18 at 14:45; Stop 03/21/18 at 14:46; Status DC Cefpodoxime Proxetil (Vantin) 200 mg BID PO Last administered on 03/23/18at 08: 59; Start 03/21/18 at 21:00 Potassium Chloride (Klor-Con) 40 meq 1X ONCE PO Last administered on at 06:26; Start 03/23/18 at 06:30; Stop 03/23/18 at 06:31; Status DC Famotidine (Pepcid) 20 mg QHS PO ; Start 03/23/18 at 21:00 Active Scripts Active Reported Tricor (Fenofibrate Nanocrystallized) 145 Mg Tablet 145 Mg PO DAILY Novolog Flexpen (Insulin Aspart) 100 Unit/1 Ml Insuln.pen 35 Unit SQ BIDAC Humulin N Kwikpen (Nph, Human Insulin Isophane) 100 Unit/1 Ml Insuln.pen 35 Unit SQ BID Vital Signs Vital Signs Date Time Temp Pulse Resp B/P (MAP) Pulse Ox O2 Delivery O2 Flow Rate FiO2 03/23/18 11:09 18 94 Room Air 03/23/18 11:00 98.4 96 155/90 (111) 98.4 Labs Laboratory Tests Test 03/21/18 16:24 03/21/18 20:46 03/22/18 04:00 03/22/18 07:43 Glucose (Fingerstick) 194 mg/dL (70-99) 203 mg/dL (70-99) 232 mg/dL (70-99) White Blood Count 9.9 x10^3/uL (4.0-11.0) Red Blood Count 3.69 x10^6/uL (3.50-5.40) Hemoglobin 10.8 g/dL (12.0-15.5) Hematocrit 31.6 % (36.0-47.0) Mean Corpuscular Volume 86 fL (79-100) Mean Corpuscular Hemoglobin 29 pg (25-35) Mean Corpuscular Hemoglobin Concent 34 g/dL (31-37) Red Cell Distribution Width 14.0 % (11.5-14.5) Platelet Count 254 x10^3/uL (140-400) Neutrophils (%) (Auto) 79 % (31-73) Lymphocytes (%) (Auto) 10 % (24-48) Monocytes (%) (Auto) 8 % (0-9) Eosinophils (%) (Auto) 2 % (0-3) Basophils (%) (Auto) 1 % (0-3) Neutrophils # (Auto) 7.8 x10^3uL (1.8-7.7) Lymphocytes # (Auto) 1.0 x10^3/uL (1.0-4.8) Monocytes # (Auto) 0.8 x10^3/uL (0.0-1.1) Eosinophils # (Auto) 0.2 x10^3/uL (0.0-0.7) Basophils # (Auto) 0.1 x10^3/uL (0.0-0.2) Sodium Level 133 mmol/L (136-145) Potassium Level 3.2 mmol/L (3.5-5.1) Chloride Level 99 mmol/L (98-107) Carbon Dioxide Level 17 mmol/L (21-32) Anion Gap 17 (6-14) Blood Urea Nitrogen 2 mg/dL (7-20) Creatinine 0.4 mg/dL (0.6-1.0) Estimated GFR (Cockcroft-Gault) 180.6 Glucose Level 249 mg/dL (70-99) Calcium Level 8.0 mg/dL (8.5-10.1) Test 03/22/18 11:17 03/22/18 16:31 03/22/18 20:31 03/23/18 04:20 Glucose (Fingerstick) 208 mg/dL (70-99) 157 mg/dL (70-99) 190 mg/dL (70-99) White Blood Count 9.7 x10^3/uL (4.0-11.0) Red Blood Count 3.85 x10^6/uL (3.50-5.40) Hemoglobin 11.0 g/dL (12.0-15.5) Hematocrit 33.0 % (36.0-47.0) Mean Corpuscular Volume 86 fL (79-100) Mean Corpuscular Hemoglobin 29 pg (25-35) Mean Corpuscular Hemoglobin Concent 33 g/dL (31-37) Red Cell Distribution Width 13.9 % (11.5-14.5) Platelet Count 282 x10^3/uL (140-400) Neutrophils (%) (Auto) 81 % (31-73) Lymphocytes (%) (Auto) 9 % (24-48) Monocytes (%) (Auto) 8 % (0-9) Eosinophils (%) (Auto) 2 % (0-3) Basophils (%) (Auto) 1 % (0-3) Neutrophils # (Auto) 7.9 x10^3uL (1.8-7.7) Lymphocytes # (Auto) 0.9 x10^3/uL (1.0-4.8) Monocytes # (Auto) 0.7 x10^3/uL (0.0-1.1) Eosinophils # (Auto) 0.2 x10^3/uL (0.0-0.7) Basophils # (Auto) 0.1 x10^3/uL (0.0-0.2) Sodium Level 133 mmol/L (136-145) Potassium Level 2.8 mmol/L (3.5-5.1) Chloride Level 98 mmol/L (98-107) Carbon Dioxide Level 18 mmol/L (21-32) Anion Gap 17 (6-14) Blood Urea Nitrogen 2 mg/dL (7-20) Creatinine 0.4 mg/dL (0.6-1.0) Estimated GFR (Cockcroft-Gault) 180.6 Glucose Level 259 mg/dL (70-99) Calcium Level 8.6 mg/dL (8.5-10.1) Lipase 692 U/L (73-393) Test 03/23/18 07:26 03/23/18 10:50 Glucose (Fingerstick) 261 mg/dL (70-99) 211 mg/dL (70-99) Laboratory Tests Test 03/22/18 16:31 03/22/18 20:31 03/23/18 04:20 03/23/18 07:26 Glucose (Fingerstick) 157 mg/dL (70-99) 190 mg/dL (70-99) 261 mg/dL (70-99) White Blood Count 9.7 x10^3/uL (4.0-11.0) Red Blood Count 3.85 x10^6/uL (3.50-5.40) Hemoglobin 11.0 g/dL (12.0-15.5) Hematocrit 33.0 % (36.0-47.0) Mean Corpuscular Volume 86 fL (79-100) Mean Corpuscular Hemoglobin 29 pg (25-35) Mean Corpuscular Hemoglobin Concent 33 g/dL (31-37) Red Cell Distribution Width 13.9 % (11.5-14.5) Platelet Count 282 x10^3/uL (140-400) Neutrophils (%) (Auto) 81 % (31-73) Lymphocytes (%) (Auto) 9 % (24-48) Monocytes (%) (Auto) 8 % (0-9) Eosinophils (%) (Auto) 2 % (0-3) Basophils (%) (Auto) 1 % (0-3) Neutrophils # (Auto) 7.9 x10^3uL (1.8-7.7) Lymphocytes # (Auto) 0.9 x10^3/uL (1.0-4.8) Monocytes # (Auto) 0.7 x10^3/uL (0.0-1.1) Eosinophils # (Auto) 0.2 x10^3/uL (0.0-0.7) Basophils # (Auto) 0.1 x10^3/uL (0.0-0.2) Sodium Level 133 mmol/L (136-145) Potassium Level 2.8 mmol/L (3.5-5.1) Chloride Level 98 mmol/L (98-107) Carbon Dioxide Level 18 mmol/L (21-32) Anion Gap 17 (6-14) Blood Urea Nitrogen 2 mg/dL (7-20) Creatinine 0.4 mg/dL (0.6-1.0) Estimated GFR (Cockcroft-Gault) 180.6 Glucose Level 259 mg/dL (70-99) Calcium Level 8.6 mg/dL (8.5-10.1) Lipase 692 U/L (73-393) Test 03/23/18 10:50 Glucose (Fingerstick) 211 mg/dL (70-99) Allergies Allergies Coded Allergies Type Severity Reaction Last Updated Verified No Known Drug Allergies 01/20/14 No Disposition/Orders: D/C to Home Patient Instructions d/c planning 33 min SHIV ROJAS MD Mar 23, 2018 13:45
--- NOTE | 2018-03-23 13:46 | DISCH ---
DISCHARGE INSTRUCTIONS Condition on Discharge Condition on Discharge: Stable Activity After Discharge Activity Instructions for Disc: Activity as tolerated Lifting Instructions after Dis: No heavy lifting, No pulling or pushing, Do not lift >10 pounds Exercise Instruction after Dis: Walk 10 min, 3 x per day Driving Instructions after Dis: Do not drive today Diet after Discharge Diet after Discharge: Cardiac, Diabetic No Calorie Level Checks after Discharge Checks after discharge: Check blood press - daily, Check blood sugar, ac/hs Contacting the DR. after DC Call your doctor for: If your condition worsens SHIV ROJAS MD Mar 23, 2018 13:46
[2018-03-23] MEDS ORDERED: POTA20TA4 PO (13:50)
[2018-03-23] MEDS ORDERED: CEFP100T PO (13:50)
[2018-03-23 15:00] VITALS: BP 169/87
[2018-03-23] MEDS ORDERED: FAMOTIDINE 20 MG TABLET. PO SCH (21:00)
[2018-03-24] MEDS ORDERED: POTASSIUM CHLORIDE 20 MEQ TABLET.ER. PO SCH (08:00)
== END 2018-03-23 16:00 | disposition home or self-care (01) | DRG 438 ==
LOC: ER 07:59 → 1 WEST ICU 11:40 → 5 SOUTH 03-18 15:40
PROVIDERS: ADMIT Internal Medicine; ATTEND Internal Medicine
DX: K85.90 Acute pancreatitis without necrosis or infection, unspecified (principal); E11.10 Type 2 diabetes mellitus with ketoacidosis without coma; N39.0 Urinary tract infection, site not specified; E87.1 Hypo-osmolality and hyponatremia; Z90.49 Acquired absence of other specified parts of digestive tract; E78.5 Hyperlipidemia, unspecified; Z82.49 Family history of ischemic heart disease and other diseases of the circulatory system; K86.1 Other chronic pancreatitis; Z79.4 Long term (current) use of insulin; I16.0 Hypertensive urgency; E83.39 Other disorders of phosphorus metabolism; K76.0 Fatty (change of) liver, not elsewhere classified; E78.1 Pure hyperglyceridemia; Z98.51 Tubal ligation status; I10 Essential (primary) hypertension; E87.6 Hypokalemia
CPT/HCPCS: 36415; 74177; 74181; 80048; 80053; 80061; 80307; 81001; 82962; 83036; 83690; 83735; 84100; 85007; 85025; 87086; 87641; 90471; 90756; 96361; 96374; 96375; 96376; G0480; J0696; J0780; J1650; J1815; J2270; J2405; J3480; J3490; J7030; J7042; Q9967; 99285-25; G0479; Q2035

== ENCOUNTER 2020-09-05 21:22 | Emergency (ER) | payer SELFPAY ==
[~2020-09-05] VITALS: Ht 162.6 cm; Wt 96.8 kg
[~2020-09-05 21:22] MED LIST changes: +CEFP100T PO; +FENO145T PO; +NPH,100I3 SQ; +POTA20TA4 PO
--- NOTE | 2020-09-05 22:06 | PHYS DOC ---
Past Medical History Past Medical History: Diabetes-Type II, High Cholesterol, Hypertension, P ancreatitis, Other Additional Past Medical Histor: OBESITY Past Surgical History: Cholecystectomy, Tubal ligation Smoking Status: Never Smoker Alcohol Use: None Drug Use: None General Adult EDM: Chief Complaint: ABDOMINAL PAIN HPI: HPI: Patient is a 40 year old female presents with a chief complaint of abdominal pain. She believes that she has acute pancreatitis. Patient pain started 1300 hrs. epigastric region with radiation to the back. Patient states she has associated nausea but has not vomited she denies any associated diarrhea. Patient does not drink she states she has had her gallbladder removed. On exam patient noted x4. She is in no acute distress. Patient's abdomen is soft without rebound or guarding. History obtained from the patient. Not accompanied by any guest. She arrived via POV. Review of Systems: Review of Systems: Constitutional: Denies fever or chills. [] Eyes: Denies change in visual acuity. [] HENT: Denies nasal congestion or sore throat. [] Respiratory: Denies cough or shortness of breath. [] Cardiovascular: Denies chest pain or edema. [] GI: Positive abdominal pain, Positive nausea, Positive vomiting, denies bloody stools or diarrhea. [] : Denies dysuria. [] Musculoskeletal: Denies back pain or joint pain. [] Integument: Denies rash. [] Neurologic: Denies headache, focal weakness or sensory changes. [] Endocrine: Denies polyuria or polydipsia. [] Lymphatic: Denies swollen glands. [] Psychiatric: Denies depression or anxiety. [] Heart Score: C/O Chest Pain: N/A Risk Factors: Risk Factors: DM, Current or recent (<one month) smoker, HTN, HLP, family history of CAD, obesity. Risk Scores: Score 0 - 3: 2.5% MACE over next 6 weeks - Discharge Home Score 4 - 6: 20.3% MACE over next 6 weeks - Admit for Clinical Observation Score 7 - 10: 72.7% MACE over next 6 weeks - Early Invasive Strategies Allergies: Allergies: Allergies Coded Allergies Type Severity Reaction Last Updated Verified No Known Drug Allergies 01/20/14 No Physical Exam: PE: Constitutional: Well developed, well nourished, no acute distress, non-toxic appearance. [] HENT: Normocephalic, atraumatic, bilateral external ears normal, oropharynx moist, no oral exudates, nose normal. [] Eyes: PERRLA, EOMI, conjunctiva normal, no discharge. [] Neck: Normal range of motion, no tenderness, supple, no stridor. [] Cardiovascular:Heart rate regular rhythm, no murmur [] Lungs & Thorax: Bilateral breath sounds clear to auscultation [] Abdomen: Bowel sounds normal, soft, no tenderness, no masses, no pulsatile masses. [] Skin: Warm, dry, no erythema, no rash. [] Back: No tenderness, no CVA tenderness. [] Extremities: No tenderness, no cyanosis, no clubbing, ROM intact, no edema. [] Neurologic: Alert and oriented X 3, normal motor function, normal sensory function, no focal deficits noted. [] Psychologic: Affect normal, judgement normal, mood normal. [] Current Patient Data: Labs: Laboratory Tests Test 09/05/20 21:38 POC Urine HCG, Qualitative Hcg negative (Negative) Vital Signs: Vital Signs Date Time Temp Pulse Resp B/P (MAP) Pulse Ox O2 Delivery O2 Flow Rate FiO2 09/05/20 21:33 98.4 91 18 162/76 (104) 96 Room Air 98.4 EKG: EKG: [] Radiology/Procedures: Radiology/Procedures: [] Impression: Impression: 1. Mild peripancreatic edema suggesting mild acute pancreatitis without parenchymal necrosis or a localized fluid collection. The gallbladder is surgically absent. 2. Hepatic steatosis and hepatomegaly. Course & Med Decision Making: Course & Med Decision Making Pertinent Labs and Imaging studies reviewed. (See chart for details) [] Patient was evaluated for chief complaint. Work-up consisted of laboratory analysis and radiologic imaging. Patient with a lipase greater than [address] imaging consistent with acute pancreatitis. Patient treated with IV fluids and morphine. Initial plan to admitted patient to the hospital. Discussed all results with patient. Patient states she feels much better and would like to be discharged home. We will discharge patient home on Zofran and hydrocodone. Patient advised liquid diet advance as tolerated. Patient given strict return precautions. Dragon Disclaimer: Dragcolleen Disclaimer: This electronic medical record was generated, in whole or in part, using a voice recognition dictation system. Departure Departure Impression: Primary Impression: Acute pancreatitis Additional Impression: Hyperglycemia Disposition: 01 HOME / SELF CARE / HOMELESS Admitting Physician: DUNIA Condition: STABLE Referrals: NO PCP (PCP) Patient Instructions: Acute Pancreatitis, Hyperglycemia Scripts Hydrocodone/Acetaminophen (Hydrocodone-Acetamin 5-325 mg) 1 Each Tablet 1 EACH PO Q4-6HRS, #20 TAB Prov: VANCE LEAL DO 09/06/20 Ondansetron Hcl (ZOFRAN) 4 Mg Tablet 1 TAB PO Q6HRS, #20 TAB Prov: VANCE LEAL DO 09/06/20 VANCE LEAL DO Sep 05, 2020 22:05
[2020-09-05] MEDS ORDERED: ONDANSETRON PF 4 MG/2 ML VIAL. IVP ONE (22:15)
[2020-09-05] MEDS ORDERED: KETOROLAC 30 MG/ML VIAL. IVP ONE (22:15)
[2020-09-05 22:18] LABS: BILIRUBIN,URINE SMALL (NEG); CLARITY,URINE CLOUDY; COLOR,URINE YELLOW; NITRITE,URINE NEGATIVE (NEG); PH,URINE 5.5 (<5.0-8.0); PROTEIN,URINE 100 mg/dL (NEG-TRACE); UROBILINOGEN,URINE 0.2 mg/dL (0.2 mg/dL)
[2020-09-05 22:25] LABS: BACTERIA,URINE FEW /HPF (0-FEW); RBC,URINE OCC /HPF (0-2)
[2020-09-05 22:39] LABS: BASO # 0.1 x10^3/uL (0.0-0.2); BASO % 2 % (0-3); EOS # 0.2 x10^3/uL (0.0-0.7); EOS % 4 % (0-3); HEMATOCRIT 36.3 % (36.0-47.0); LYMPH % 16 % (24-48); MEAN CORPUSCULAR VOLUME 86 fL (79-100); MONO # 0.8 x10^3/uL (0.0-1.1); MONO % 13 % (0-9); NEUT # 4.2 x10^3/uL (1.8-7.7); NEUT % 66 % (31-73); PLATELET COUNT 224 x10^3/uL (140-400); RED BLOOD COUNT 4.23 x10^6/uL (3.50-5.40); RED CELL DISTRIBUTION WIDTH 13.3 % (11.5-14.5); WHITE BLOOD COUNT 6.3 x10^3/uL (4.0-11.0)
[2020-09-05 22:40] LABS: HEMOGLOBIN 12.2 g/dL (12.0-15.5); MEAN CORPUSCULAR HEMOGLOBIN 29 pg (25-35); MEAN CORPUSCULAR HGB CONC 34 g/dL (31-37)
[2020-09-05] MEDS ORDERED: IOHEXOL 300 MG/ML 100ML VIAL. IV ONE (23:00)
[2020-09-05] MEDS ORDERED: MORPHINE SULFATE 4 MG/ML VIAL. IV ONE (23:15)
[2020-09-05] MEDS ORDERED: CONTRAST GIVEN. MC PRN (23:15)
[2020-09-05] MEDS ORDERED: IV NORMAL SALINE 1000ML BAG 1,000 ML IV ONE (23:15)
[2020-09-05 23:22] LABS: % BANDS 5 % (0-9); % LYMPHS 31 % (24-48); % MONOS 3 % (0-10); % SEGS 61 % (35-66); ALBUMIN 3.5 g/dL (3.4-5.0); ALBUMIN/GLOBULIN RATIO 0.9 (1.0-1.7); CALCIUM 9.2 mg/dL (8.5-10.1); CREATININE 0.6 mg/dL (0.6-1.0); GFR 111.9; PLT ESTIMATE ADEQUATE (ADEQUATE); POTASSIUM 4.2 mmol/L (3.5-5.1); TOTAL BILIRUBIN 0.3 mg/dL (0.2-1.0); TOTAL PROTEIN 7.6 g/dL (6.4-8.2)
[2020-09-06] MEDS ORDERED: HYDROmorphone 2 MG/ML VIAL IVP ONE
--- NOTE | 2020-09-06 00:43 | RAD ---
Study: CT abdomen/pelvis with intravenous contrast Indication: Abdominal pain. Comparison: 03/17/2018 Technique: Helical CT imaging performed of the abdomen and pelvis after the intravenous administratio n of 75 cc Omnipaque 300 contrast. Sagittal and coronal reformats were obtained. One or more of the following individualized dose reduction techniques were utilized for this examinat ion: 1. Automated exposure control 2. Adjustment of the mA and/or kV according to patient size 3. Use of iterative reconstruction technique. Findings: Chest: No acute abnormality. Liver: Diffuse hepatic steatosis. Hepatomegaly with the liver mildly larger in size from the 2018 com parison measuring up to 25 cm craniocaudal compared to 23 cm. Gallbladder/Biliary Tree: Surgically absent gallbladder. Unremarkable biliary tree. Pancreas: Mild peripancreatic edema. Parenchymal attenuation is relatively homogeneous. No pancreatic or peripancreatic fluid collection. Spleen: Normal in size. Adrenal Glands: Unremarkable. Kidneys/Ureters/Bladder: Mild caliectasis on the left but there is no hydroureter. Unremarkable colle cting system on the right. The kidneys enhance normally. Unremarkable bladder. Reproductive Organs: Within normal limits for patient age. Colon: Unremarkable. Appendix: Unremarkable. Small Bowel: Mild reactive inflammatory changes of left upper quadrant small bowel. No obstruction. Stomach: Unremarkable. Vasculature: The more proximal aspect of the splenic vein is not well delineated but this was also th e case on the comparison. Splenic veins opacify with contrast at the hilum. Lymph Nodes: No significant interval change. Peritoneum and Body Wall: No pneumoperitoneum or significant volume free fluid. No complex body wall hernia. No localized subcutaneous fluid collection. Bones: No acute abnormality. Miscellaneous: None. Impression: 1. Mild peripancreatic edema suggesting mild acute pancreatitis without parenchymal necrosis or a lo calized fluid collection. The gallbladder is surgically absent. 2. Hepatic steatosis and hepatomegaly. Electronically signed by: AUGUSTO GONZALEZ MD (09/06/2020 12:41 AM) [facility]
[2020-09-06] MEDS ORDERED: ONDA4TAB7 PO (01:14)
[2020-09-06] MEDS ORDERED: HYDR-2759 PO (01:15)
[2020-09-06 01:26] VITALS: BP 150/77
[2020-09-09] MEDS ORDERED: ATOR40TA59 PO (09:35)
== END 2020-09-06 01:21 | disposition home or self-care (01) ==
LOC: ER 21:22 → 4 NORTH 23:58 → UNDOADMOB 23:58 → 4 NORTH 09-06 01:12
DX: K85.90 Acute pancreatitis without necrosis or infection, unspecified (principal); E11.65 Type 2 diabetes mellitus with hyperglycemia; E78.00 Pure hypercholesterolemia, unspecified; I10 Essential (primary) hypertension; Z90.49 Acquired absence of other specified parts of digestive tract; Z98.51 Tubal ligation status; E66.9 Obesity, unspecified; Z68.36 Body mass index [BMI] 36.0-36.9, adult
CPT/HCPCS: 36415; 74177; 80053; 81001; 81025; 83690; 85007; 85025; 87086; 96361; 96374; 96375; 99285; J1170; J1885; J2270; J2405; J7030; Q9967; 96376